=== PATIENT | female | born 1945 | race Caucasian/White ===

== ENCOUNTER 2023-08-03 15:33 | Observation (INO) | payer MEDICARE, SELFPAY ==
[2023-08-03] VITALS (21 sets, daily range): BP systolic 175–249; BP diastolic 85–159; PULSE 73–120; RESP 14–26; TEMP 36.5–37.1; O2SAT 89–99; BMI 30.8
--- NOTE | 2023-08-03 15:41 | XR_ITS ---
The [address] [address] Patient Name: RIVER ELIZONDO MRN: [id number] date: 1945 Sex: F Assigned Patient Location: ED.MAIN Current Patient Location: ER Accession/Order Number: [id number] Exam Date: 08/03/2023 15:55 Report Date: 08/03/2023 16:07 At the request of: JULIANA HUDDLESTON Procedure: XR chest 1V XR chest 1V: bee sting/ allegric reaction: This study is limited due to portable technique and AP view. There is no appropriate prior study for comparison. No pneumothorax is noted. The cardiomediastinal silhouette is unremarkable. There is no definite opacity or pleural effusion. No suspicious bone lesion is noted. Lower cervical spine prior intervention is noted. XR/XR chest 1V Impression: No acute cardiopulmonary disease is noted. Electronically authenticated by: HALIMA LONG Date: 08/03/2023 16:07
--- NOTE | 2023-08-03 15:41 | ECG_ITS ---
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
--- NOTE | 2023-08-03 15:43 | ED_ITS ---
HPI - Allergic Reaction General Chief complaint: Allergic Reaction Stated complaint: BEE STING Time Seen by Provider: 08/03/23 15:34 Source: patient Mode of arrival: walk-in History of Present Illness HPI narrative: patient is a 78-year-old female presents to the Emergency Room with concerns of tongue swelling and bee stings. Patient states she was working in her garden planting hill approximately three hours ago when she was stung five times by bees. She has no prior history of ALLERGIC reaction and decided to go take a nap, shortly after waking up the patient noticed significant swelling of her tongue. She is on lisinopril for high blood pressure and admits to having whitecoat syndrome. Patient denies difficulty swallowing but notes that her tongue is swollen and denies shortness of breath. She has multiple large hives on the left humerus, right lower abdomen and left foot. Patient denies any chest pain or shortness of breath. She denies any abdominal pain. She took a full dose 25 mg Benadryl at home after being stung complaint: Reports allergic reaction and hives Onset (ago): hour(s) (3) Symptoms: Reports itching and tongue swelling Treatment prior to arrival: Reports benadryl Related Data Allergies Allergy/AdvReac Type Severity Reaction Status Date / Time No Known Drug Allergies Allergy Verified 08/03/23 15:41 Review of Systems ROS Constitutional Denies: fever or chills Eyes Denies: change in vision or blurry vision Ears, nose, mouth, and throat Denies: throat pain, neck pain, throat swelling or difficulty swallowing Cardiovascular Denies: chest pain or palpitations Respiratory Denies: shortness of breath or cough Gastrointestinal Denies: abdominal pain or nausea Genitourinary Denies: painful urination or urinary frequency Musculoskeletal Denies: back pain or neck pain Neurological Denies: headache, numbness in extremities or weakness in extremities Psychiatric Reports: anxiety Endocrine Denies: excessive urination Allergic/Immunologic Reports: hives and tongue swelling PFSH PFSH Social History Smoking status: Former smoker Exam Narrative Exam Narrative: Nurses notes and vital signs reviewed and patient is not hypoxic. General: The patient appears well but anxious, speech is hindered by glottic s welling. Patient able to speak in full sentences Skin: Warm, dry, no pallor noted.notable hives to the right anterior abdomen, left proximal humerus and left foot. No visible retained stinger, patient believes she got stung five times. Head: Normocephalic, atraumatic Neck: Supple, trachea mid-line, no tenderness, no lymphadenopathy Eye: Pupils are equal, round and reactive to light, EOMI Ears, Nose, Mouth, and Throat: TM are clear, normal light reflex, oral mucosa is moist, no posterior oropharynx erythema or hypertrophy, uvula is mid-line without swelling but the tongue is notably swollen. Cardiovascular: Regular Rate and Rhythm Respiratory: Patient is in no distress, no accessory muscle use, lungs are clear to auscultation, no wheezing, rales or rhonchi. Chest Wall: no tenderness Back: non-tender, no CVA tenderness Musculoskeletal: normal ROM, no tenderness, no swelling GI: Normal bowel sounds, no tenderness to palpation, no masses appreciated. No rebound, guarding, or rigidity noted.soreness only to bee stings noted on right anterior lower abdomen with large hive Neurological: A&O x4 Psychiatric: Cooperative MDM - Allergic Reaction MDM Narrative Medical decision making narrative: patient denies any history of heart attack or coronary artery disease, admits to hypertension on lisinopril. no prior history of angioedema, patient had five bee stings three hours ago, took a nap and woke up with notable tongue swelling and hives. Patient denies difficulty breathing but speech is slightly impaired with her tongue swelling. Given consistent history of likely ALLERGIC reaction- anaphylactic with tongue swelling patient given epinephrine 0.3 mg IM, followed by IV Solu-Medrol one twenty-five, Pepcid 20 mg, Benadryl 25 mg IV. Patient will be observed. history of hypertension and blood pressure was elevated on arrival, will repeat after initial medication series, given her understandable anxiety. Ice packs applied to the areas of bee stings patient reexamined at 4:20 PM. Reports feeling much better, tongue swelling is improving. Denies chest pain or shortness of breath, her blood pressure is also trending back down. Patient agreeaable with continued observation rechecked at 5:20pm. Patient ordered potassium for her hypokalemia. Her blood pressure is trending downward at 175/85. She has no complaints other than continued to swelling but not symptoms are much better than before. Since she is not back to baseline her a hundred percent, but not yet needing re-dosing with epinephrine we recommended admission for observation stay to monitor symptoms in case she needs remedicated. Patient's case was discussed with Dr. Wade by . Diab is agreeable for admission. Differential Diagnosis Differential diagnosis: Likely anaphylaxis and allergic reaction Lab Data Attestation: I reviewed the patient's lab results. Imaging Data Chest x-ray: Radiologist's impression: At the request of: JULIANA HUDDLESTON Procedure: XR chest 1V XR chest 1V: bee sting/ allegric reaction: This study is limited due to portable technique and AP view. There is no appropriate prior study for comparison. No pneumothorax is noted. The cardiomediastinal silhouette is unremarkable. There is no definite opacity or pleural effusion. No suspicious bone lesion is noted. Lower cervical spine prior intervention is noted. Impression: No acute cardiopulmonary disease is noted. Electronically authenticated by: HALIMA LONG Date: 08/03/2023 16:07 ECG Data Attestation: I personally reviewed and interpreted this ECG as follows: Interpretation: EKG interpretation: Emergency Department physician interpretation, sinus tachycardia 114, no ectopy, no ST segment elevation,right axis deviation. Discharge Plan Discharge Chief Complaint: Allergic Reaction Clinical Impression: Anaphylaxis, Allergic reaction, Hypertension, Acute hypokalemia Patient Disposition: Admitted as Observation Time of Disposition Decision: 17:22 Condition: Good Referrals: Tereso Haider DO [Primary Care Provider] - 1 week
[2023-08-03] MEDS: EPINEPHRINE HCL PF 1 MG/ML AMPULE 0.3 MG IM (15:45)
[2023-08-03] MEDS: 0.9 % SODIUM CHLORIDE 1,000 ML 999 ML IV (15:50)
[2023-08-03] MEDS: METHYLPREDNISOLONE SOD SUCC PF 125 MG/2 ML VIAL IVP (15:50)
[2023-08-03] MEDS: FAMOTIDINE/PF 20 MG/2 ML VIAL IV (15:53)
[2023-08-03] MEDS: DIPHENHYDRAMINE HCL 50 MG/ML (1ML) VIAL 25 MG IV (15:55)
[2023-08-03 16:15] LABS: Basophils Absolute Auto 0.1 10^3/uL (0.0-0.1); Basophils Percent Auto 0.5 % (0.2-2.0); Eosinophils Absolute Auto 0.2 10^3/uL (0.0-0.7); Eosinophils Percent Auto 1.3 % (0.9-7.0); Hematocrit 42.8 % (36.0-48.0); Hemoglobin 14.2 g/dL (12.0-16.0); Immature Granulocytes Abs Auto 0.05 10^3/uL (0.00-0.03); Immature Granulocytes Pct Auto 0.4 % (0.0-0.5); Lymphocytes Absolute Auto 4.2 10^3/uL (1.2-3.8); Lymphocytes Percent Auto 36.3 % (20.5-60.0); Mean Corpuscular HGB Conc 33.2 g/dL (29.9-35.2); Mean Corpuscular Hemoglobin 31.1 pg (26.7-34.0); Mean Corpuscular Volume 93.9 fL (81.0-99.0); Mean Platelet Volume 10.3 fL (9.5-13.5); Monocytes Absolute Auto 1.1 10^3/uL (0.3-0.8); Monocytes Percent Auto 9.1 % (1.7-12.0); Neutrophils Absolute Auto 6.1 10^3/uL (1.4-6.5); Neutrophils Percent Auto 52.4 % (43.0-75.0); Platelet Count 263 10^3/uL (150-450); Red Blood Count 4.56 10^6/uL (4.20-5.40); Red Cell Distribution Width 12.6 % (11.0-15.0); White Blood Count 11.6 10^3/uL (4.0-11.0)
[2023-08-03 16:26] LABS: Anion Gap 11.3; BUN Creatinine Ratio 18.9; Calcium 9.5 mg/dL (8.5-10.1); Carbon Dioxide 26.8 mmol/L (21.0-32.0); Chloride 104 mmol/L (98-107); Estimated GFR (African America 52 (>=60); Estimated GFR (Non-African Ame 43 (>=60); Glucose 175 mg/dL (74-106); Potassium 3.1 mmol/L (3.5-5.1); Sodium 139 mmol/L (136-145)
[2023-08-03] MEDS: POTASSIUM BICARBONATE/CIT 25 MEQ TABLET EFF 50 MEQ PO (17:28)
--- NOTE | 2023-08-03 19:57 | PC.NURSE ---
some redness and edema at the sight of the bee stings. Patient states some stiffness in her left foot from the edema
[2023-08-03] MEDS: ACETAMINOPHEN 500 MG TABLET 1000 MG PO (20:56)
[2023-08-03] MEDS: LACTATED RINGER'S SOLUTION 1,000 ML 50 ML IV (21:11)
[2023-08-03] MEDS: ZOLPIDEM TARTRATE 5 MG TABLET 2.5 MG PO (21:11)
[2023-08-03] MEDS: HYDRALAZINE HCL 20 MG/ML VIAL 10 MG IVP (21:12)
[2023-08-03] MEDS: METHYLPREDNISOLONE SOD SUCC PF 125 MG/2 ML VIAL 60 MG IVP (21:12)
[2023-08-03] MEDS: DIPHENHYDRAMINE HCL 25 MG CAPSULE PO (23:21)
--- NOTE | 2023-08-03 23:47 | PC.NURSE ---
patient was given solu-medrol per physician order. Patient now states she feels jittery and stated, I can feel my heart beating and feel wired. patient's HR was 85, but she stated her normal resting heart rate is mid 50s. physician made aware.
[2023-08-04] MEDS: METHYLPREDNISOLONE SOD SUCC PF 125 MG/2 ML VIAL 60 MG IVP ×2 (04:17→11:25)
[2023-08-04 04:18] VITALS: BP 126/68; PULSE 72; RESP 18; TEMP 36.4; O2SAT 95
[2023-08-04 04:22] VITALS: O2SAT 92
[2023-08-04] MEDS: ACETAMINOPHEN 500 MG TABLET 1000 MG PO (04:58)
--- NOTE | 2023-08-04 08:17 | P.HP_ITS ---
H&P: HPI History of Present Illness Chief complaint: BEE STING, ANAPHYLAXIS Narrative: Patient with no history of bee sting allergy had several bee stings yesterday and then not long after that started noticing a thickness to her tongue. With concern for allergies she presented to the emergency room. She was not hypoxic and no wheezing but had the tongue swelling. With the acute onset and severity of her current symptoms she was admitted overnight for observation. Patient also does take an GARDENIA inhibitor. Does not appear to be angioedema that would be consistent with GARDENIA inhibitors with those were held. Review of Systems ROS Status of ROS 10 or more systems reviewed and unremarkable except as noted in history and below [facility] Medical History Surgical History (Reviewed 08/04/23 @ :22 by Haroon Wade MD) Family History Mother Family history of cancer Family history of diabetes mellitus Family history of hypertension Father Family history of myocardial infarction Social History Within the past year, how often did you have a drink containing alcohol: monthly or less Within the past year, how often did you have six or more drinks on one occasion: never Smoking status: Former smoker Non-prescribed substance use: denies use Previous occupational history: sorrowful mother karon Known occupational exposures/hazards: No Highest level of school completed/degree received: Associate degree: academic program Are you now , , , , never or living with a partner: Little interest or pleasure in doing things: not at all Feeling down, depressed, or hopeless: not at all Feel stressed/tense/nervous/anxious/difficulty sleeping: not at all Do you think of yourself as: straight/heterosexual Gender Identity: female Meds Home Medications and Allergies Home Medications Medication Instructions Recorded Confirmed Type acetaminophen 500 mg tablet (Pain 1,000 mg PO Q6H PRN pain 08/03/23 08/03/23 History Relief (acetaminophen)) calcium 08/03/23 History glucosamine sulf dipot cap PO DAILY 08/03/23 History chlr,msm,chond 550 mg-C 30 mg-emrcy 1 mg capsule (Glucosamine Chondroitin) multivitamin (Daily Multi-Vitamin 1 tab PO DAILY 08/03/23 08/03/23 History tablet) zolpidem 5 mg tablet 2.5 mg PO DAILY PRN insomnia 08/03/23 08/03/23 History lisinopril 20 1 tab PO DAILY 08/04/23 08/04/23 History mg-hydrochlorothiazide 12.5 mg tablet (Zestoretic) metoprolol tartrate 25 mg tablet 25 mg PO BID #60 tabs 08/04/23 Rx Allergies Allergy/AdvReac Type Severity Reaction Status Date / Time No Known Drug Allergies Allergy Verified 08/03/23 15:41 Exam Constitutional Vital Signs, click to edit/add: Last Vital Signs Temp 97.5 F L 08/04/23 04:18 Pulse 72 08/04/23 04:18 Resp 18 08/04/23 04:18 BP 126/68 08/04/23 04:18 Pulse Ox 92 L 08/04/23 04:22 O2 Del Method Room Air 08/04/23 04:22 Documenting provider has reviewed patient's vital signs: yes Common normals: no apparent distress HENMT Common normals: normocephalic, head/scalp atraumatic, moist oral mucous membranes and oropharynx normal Chest Common normals: inspection of chest normal Respiratory Common normals: normal respiratory effort, no retractions and clear to auscultation bilaterally Cardio Common normals: regular rate, regular rhythm and no murmurs Results Labs Labs: Short CBC 08/03/23 Range/Units 15:41 WBC 11.6 H (4.0-11.0) 10^3/uL Hgb 14.2 (12.0-16.0) g/dL Hct 42.8 (36.0-48.0) % Plt Count 263 (150-450) 10^3/uL BMP 08/03/23 15:41 Sodium 139 Potassium 3.1 L Chloride 104 Carbon Dioxide 26.8 BUN 23.0 H Creatinine 1.22 H Glucose 175 H Calcium 9.5 Assessment and Plan Assessment and Plan (1) Anaphylaxis: (2) Allergic reaction: (3) Hypertension: Plan Patient with acute reaction to possible bee stings-did well overnight. Feels no tongue swelling this morning. She is eating and ambulating well should be discharged to home after breakfast. Medications see list. Follow-up with PCP within the next week. Hypertension-although unlikely to be angioedema from GARDENIA inhibitor we will change patient to metoprolol. Hypokalemia-can monitor as an outpatient. Likely related to the hydrochlorothiazide which was been discontinued
[2023-08-04] MEDS: METOPROLOL TARTRATE 25 MG TABLET PO (08:27)
[2023-08-04] MEDS: MULTIVITAMIN TABLET 1 TAB PO (08:27)
[2023-08-04] MEDS: POTASSIUM CHLORIDE 40 MEQ in 0.9 % SODIUM CHLORIDE 250 ML 67.5 MEQ IV (08:27)
--- NOTE | 2023-08-04 08:49 | CM.NOTE ---
Rounds made with yolanda Ch to discharge to home today and pt will need to f/u with primary care physician.
--- NOTE | 2023-08-04 08:57 | CM.NOTE ---
Medicare Outpatient Observation Notice discussed with pt, pt verbalizes understanding and signs paper. Original given to pt and copy placed on pt's chart.
--- NOTE | 2023-08-04 10:20 | SWNOTE1 ---
SW met with pt to discuss dc needs. Pt does live at home by herself. Pt's son in room during assessment. Pt is independent at home and has no concerns about discharge. Pt will be getting epipen due to the reaction from bee stings. SW to follow as needed.
[2023-08-04 10:43] VITALS: O2SAT 94
--- NOTE | 2023-08-05 15:42 | CM.DCFOLLOWU ---
1st attempt follow up call made by Sergio Espinoza on 08/05/23, no answer at this time
--- NOTE | 2023-08-08 14:45 | CM.DCFOLLOWU ---
2nd attempt discharge follow up call made by Sergio Espinoza on 08/08/23, no answer at this time.
--- NOTE | 2023-08-11 12:19 | CM.DCFOLLOWU ---
Person spoke with:patient How are you feeling? was feeling anxious, feeling better now How is your pain? no pain Did you understand your discharge instructions? yes Do you have any questions about your discharge instructions? no Were you given any prescriptions at discharge? yes Were you able to get your prescriptions filled? yes Do you understand how to take your medications as ordered? yes Do you have any questions about your follow up appointment and do you plan to keep your follow up appointment? she called Dr. Elise office and spoke with nurse, was stung again over weekend. Was feeling anxious, but better now. She is going to see Dr. Haider tomorrow Is there anything else that you would like to discuss? no Questions/Comments/Concerns/Other:
== END 2023-08-04 13:04 | disposition home or self-care (01) ==
LOC: ER 17:22 → MS 18:05
PROVIDERS: Personal Emergency Response Attendant; Admitting Provider Family Medicine; Emergency Provider Emergency Medicine; PCP Internal Medicine; Visit Provider Family Medicine
DX: T63.441A Toxic effect of venom of bees, accidental (unintentional), initial encounter (principal); T78.2XXA Anaphylactic shock, unspecified, initial encounter; I10 Essential (primary) hypertension; E87.6 Hypokalemia; Z87.891 Personal history of nicotine dependence
CPT/HCPCS: 36415; 71045; 80048; 85025; 93005; 94667; 94761; 96365; 96366; 96372; 96375; 96376; 99285; G0378; J2930; J3480

== ENCOUNTER 2023-08-07 07:47 | Emergency (ER) | payer MEDICARE, SELFPAY ==
[2023-08-07] VITALS (11 sets, daily range): BP systolic 180–242; BP diastolic 70–120; PULSE 75–110; RESP 16–20; O2SAT 95–98
--- NOTE | 2023-08-07 08:12 | ECG_ITS ---
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
--- NOTE | 2023-08-07 08:13 | XR_ITS ---
The [address] [address] Patient Name: RIVER ELIZONDO MRN: [id number] date: 1945 Sex: F Assigned Patient Location: ER Current Patient Location: ER Accession/Order Number: [id number] Exam Date: 08/07/2023 08:45 Report Date: 08/07/2023 09:13 At the request of: MARANDA BRASWELL Procedure: XR chest 1V EXAM: XR chest 1V HISTORY: . hypertension . COMPARISON: 08/03/2023 TECHNIQUE: Single view of the chest FINDINGS: Heart and vascularity are unremarkable. There is hyperexpansion of lungs. Lungs are free of focal infiltrates. There is a small area of linear atelectasis in the lingula. Early atherosclerotic changes of the thoracic aorta are noted. XR/XR chest 1V IMPRESSION: 1 hyperexpansion of lungs. 2. Linear area of atelectasis in the lingula. Remainder of lung cool are unremarkable. Electronically authenticated by: ASAF SANDS Date: 08/07/2023 09:13
--- NOTE | 2023-08-07 08:13 | ED.GENADUL1 ---
HPI - General Adult General Chief complaint: Recheck/Abnormal Lab/Rx Stated complaint: HIGH BLOOD PRESSURE Time Seen by Provider: 08/07/23 08:04 Source: patient Mode of arrival: walk-in History of Present Illness HPI narrative: [age] female presents for elevated blood pressure. She had been admitted to this hospital for multiple bee stings and during that hospitalization she was switched from lisinopril to metoprolol because of a potassium issue. She's been taking the metoprolol but her blood pressure has gone up and her legs feel swollen and her face feels puffy. She is not short of breath but doesn't have chest pain or shortness of breath or palpitations. She had gone home from the hospital four days ago. She took a dose of lisinopril today as well. Related Data Home Medications Medication Instructions Recorded Confirmed acetaminophen 500 mg tablet (Pain 1,000 mg PO Q6H PRN pain 08/03/23 08/03/23 Relief (acetaminophen)) calcium 08/03/23 glucosamine sulf dipot cap PO DAILY 08/03/23 chlr,msm,chond 550 mg-C 30 mg-mercy 1 mg capsule (Glucosamine Chondroitin) multivitamin (Daily Multi-Vitamin 1 tab PO DAILY 08/03/23 08/03/23 tablet) zolpidem 5 mg tablet 2.5 mg PO DAILY PRN insomnia 08/03/23 08/03/23 lisinopril 20 1 tab PO DAILY 08/04/23 08/04/23 mg-hydrochlorothiazide 12.5 mg tablet (Zestoretic) Previous Rx's Medication Instructions Recorded epinephrine 0.3 mg/0.3 mL 0.3 mg (0.3 mL) IM Q10M PRN 08/04/23 injection, auto-injector (EpiPen allergic reacion #2 ea 2-Joel) metoprolol tartrate 25 mg tablet 25 mg PO BID #60 tabs 08/04/23 Allergies Allergy/AdvReac Type Severity Reaction Status Date / Time No Known Drug Allergies Allergy Verified 08/03/23 15:41 Review of Systems ROS Narrative A ten point review of systems is negative except as noted above. PFSH PFSH Medical History Surgical History Family History Mother Family history of cancer Family history of diabetes mellitus Family history of hypertension Father Family history of myocardial infarction Social History Within the past year, how often did you have a drink containing alcohol: monthly or less Within the past year, how often did you have six or more drinks on one occasion: never Smoking status: Current some day smoker Non-prescribed substance use: denies use Previous occupational history: sorrowful mother karon Known occupational exposures/hazards: No Highest level of school completed/degree received: Associate degree: academic program Are you now , , , , never or living with a partner: Little interest or pleasure in doing things: not at all Feeling down, depressed, or hopeless: not at all Feel stressed/tense/nervous/anxious/difficulty sleeping: not at all Do you think of yourself as: straight/heterosexual Gender Identity: female Exam Narrative Exam Narrative: Nurses note and vital signs reviewed and patient is not hypoxic. General: The patient appears well and in no apparent distress. Patient is resting comfortably on cart. Skin: Warm, dry, no pallor noted. There is no rash noted. Head: Normocephalic, atraumatic Eye: Normal conjunctiva, no drainage Ears, Nose, Mouth, and Throat: oral mucosa is moist. Nares patent. Cardiovascular: Regular Rate and Rhythm Respiratory: Patient is in no distress, no accessory muscle use, lungs are clear to auscultation, no wheezing, rales or rhonchi Back: non-tender GI: soft and nontender Musculoskeletal: bilateral ankle edema present Neurological: A&O, normal speech Psychiatric: Cooperative Constitutional Vital Signs, click to edit/add: Last Vital Signs Pulse 85 08/07/23 12:24 Resp 16 08/07/23 12:24 BP 180/70 H 08/07/23 12:24 Pulse Ox 97 08/07/23 12:24 O2 Del Method Room Air 08/07/23 11:43 Course Vital Signs Vital signs: Vital Signs Pulse Rate 110 H 08/07/23 08:02 Respiratory Rate 20 08/07/23 08:02 Blood Pressure 242/120 H 08/07/23 08:02 Pulse Oximetry 95 08/07/23 08:02 Oxygen Delivery Method Room Air 08/07/23 08:02 Pulse Rate 85 08/07/23 12:24 Respiratory Rate 16 08/07/23 12:24 Blood Pressure 180/70 H 08/07/23 12:24 Pulse Oximetry 97 08/07/23 12:24 Oxygen Delivery Method Room Air 08/07/23 11:43 Medical Decision Making MDM Narrative Medical decision making narrative: blood pressure was elevated and she was given IV hydralazine. blood pressure has been trending down and will increase her metoprolol from 25 mg twice a day up to 50 mg twice today. She has a doctor's appointment in eight days that she'll keep. Treatment diagnosis and follow-up were discussed with the patient and her . Differential Diagnosis Differential Diagnosis: steroid-induced hypertension, kidney injury Lab Data Lab results reviewed: Yes I reviewed the patient's lab results Labs: Lab Results 08/07/23 Range/Units 08:40 WBC 8.1 (4.0-11.0) 10^3/uL RBC 4.38 (4.20-5.40) 10^6/uL Hgb 13.7 (12.0-16.0) g/dL Hct 42.2 (36.0-48.0) % MCV 96.3 (81.0-99.0) fL MCH 31.3 (26.7-34.0) pg MCHC 32.5 (29.9-35.2) g/dL RDW 12.8 (11.0-15.0) % Plt Count 218 (150-450) 10^3/uL MPV 10.7 (9.5-13.5) fL Neut % (Auto) 57.3 (43.0-75.0) % Lymph % (Auto) 30.0 (20.5-60.0) % Travis % (Auto) 9.5 (1.7-12.0) % Eos % (Auto) 1.7 (0.9-7.0) % Baso % (Auto) 0.5 (0.2-2.0) % Neut # (Auto) 4.7 (1.4-6.5) 10^3/uL Lymph # (Auto) 2.4 (1.2-3.8) 10^3/uL Travis # (Auto) 0.8 (0.3-0.8) 10^3/uL Eos # (Auto) 0.1 (0.0-0.7) 10^3/uL Baso # (Auto) 0.0 (0.0-0.1) 10^3/uL Abs Immat Gran (auto) 0.08 H (0.00-0.03) 10^3/uL Imm/Tot Granulo (auto) 1.0 H (0.0-0.5) % Sodium 141 (136-145) mmol/L Potassium 3.4 L (3.5-5.1) mmol/L Chloride 104 (98-107) mmol/L Carbon Dioxide 29.7 (21.0-32.0) mmol/L Anion Gap 10.7 BUN 20.0 H (7.0-18.0) mg/dL Creatinine 1.14 H (0.55-1.02) mg/dL Est GFR ( Amer) 56 L (>=60) Est GFR (Non-Af Amer) 46 L (>=60) BUN/Creatinine Ratio 17.5 Glucose 131 H (74-106) mg/dL Calcium 9.6 (8.5-10.1) mg/dL Critical Care Time Critical Care Time Critical Care Time: Yes Total Critical Care Time: 35 Attestation: Due to the high probability of sudden and clinically significant deterioration in the patient's condition he/she required the highest level of my preparedness to intervene urgently I provided critical care time including documentation time, medication orders and management, reevaluation, vital sign assessment, ordering and reviewing of lab tests, ordering and reviewing of x-ray studies, and admission orders. Aggregate critical care time is () minutes including only time during which I was engaged in work directly related to his/her care and did not include time spent treating other patients simultaneously. Discharge Plan Discharge Chief Complaint: Recheck/Abnormal Lab/Rx Clinical Impression: Hypertension Patient Disposition: Home, Self-Care Time of Disposition Decision: 12:47 Condition: Good Mode of Transportation: Private Vehicle Prescriptions / Home Meds: No Action zolpidem 5 mg tablet 2.5 mg PO DAILY PRN (Reason: insomnia) multivitamin [Daily Multi-Vitamin] Tablet 1 tab PO DAILY acetaminophen [Pain Relief (acetaminophen)] 500 mg tablet 1,000 mg PO Q6H PRN (Reason: pain) Glucosamine Chondroitin 550-30-1 mg capsule PO DAILY calcium metoprolol tartrate 25 mg Tablet 25 mg PO BID Qty: 60 11RF lisinopril-hydrochlorothiazide [Zestoretic] 20-12.5 mg tablet 1 tab PO DAILY epinephrine [EpiPen 2-Joel] 0.3 mg/0.3 mL auto-injector 0.3 mg IM Q10M PRN (Reason: allergic reacion) Qty: 2 11RF Rx Instructions: for 2 doses Instructions: Hypertension (ED) Additional Instructions: increase the metoprolol to 50 mg twice a day beginning tonight. See your doctor at your scheduled appointment. Stand Alone Forms: Portal Instructions Referrals: Tereso Haider DO [Primary Care Provider] - 1 week
[2023-08-07 08:54] LABS: Anion Gap 10.7; BUN Creatinine Ratio 17.5; Calcium 9.6 mg/dL (8.5-10.1); Carbon Dioxide 29.7 mmol/L (21.0-32.0); Chloride 104 mmol/L (98-107); Estimated GFR (African America 56 (>=60); Estimated GFR (Non-African Ame 46 (>=60); Glucose 131 mg/dL (74-106); Potassium 3.4 mmol/L (3.5-5.1); Sodium 141 mmol/L (136-145)
[2023-08-07] MEDS: HYDRALAZINE HCL 20 MG/ML VIAL 10 MG IVP ×2 (09:11→11:23)
[2023-08-07 09:12] LABS: Basophils Percent Auto 0.5 % (0.2-2.0); Eosinophils Absolute Auto 0.1 10^3/uL (0.0-0.7); Eosinophils Percent Auto 1.7 % (0.9-7.0); Hematocrit 42.2 % (36.0-48.0); Hemoglobin 13.7 g/dL (12.0-16.0); Immature Granulocytes Abs Auto 0.08 10^3/uL (0.00-0.03); Lymphocytes Absolute Auto 2.4 10^3/uL (1.2-3.8); Mean Corpuscular HGB Conc 32.5 g/dL (29.9-35.2); Mean Corpuscular Hemoglobin 31.3 pg (26.7-34.0); Mean Corpuscular Volume 96.3 fL (81.0-99.0); Mean Platelet Volume 10.7 fL (9.5-13.5); Monocytes Absolute Auto 0.8 10^3/uL (0.3-0.8); Monocytes Percent Auto 9.5 % (1.7-12.0); Neutrophils Absolute Auto 4.7 10^3/uL (1.4-6.5); Neutrophils Percent Auto 57.3 % (43.0-75.0); Platelet Count 218 10^3/uL (150-450); Red Blood Count 4.38 10^6/uL (4.20-5.40); Red Cell Distribution Width 12.8 % (11.0-15.0); White Blood Count 8.1 10^3/uL (4.0-11.0)
[2023-08-07] MEDS: LORAZEPAM 2 MG/ML 1 ML VIAL 0.5 MG IV (11:58)
== END 2023-08-07 13:25 | disposition home or self-care (01) ==
PROVIDERS: Emergency Provider Emergency Medicine; PCP Internal Medicine
DX: I10 Essential (primary) hypertension (principal); Z79.899 Other long term (current) drug therapy; F17.210 Nicotine dependence, cigarettes, uncomplicated
CPT/HCPCS: 36415; 71045; 80048; 85025; 93005; 96374; 96375; 96376; 99285

== ENCOUNTER 2023-08-08 19:37 | Emergency (ER) | payer MEDICARE, SELFPAY ==
[2023-08-08] VITALS (10 sets, daily range): BP systolic 170–202; BP diastolic 88–103; PULSE 54–95; RESP 20; TEMP 36.6; O2SAT 94–95; BMI 30.3
--- NOTE | 2023-08-08 20:01 | ED_ITS ---
HPI - Allergic Reaction General Chief complaint: Allergic Reaction Stated complaint: BEE BITE Time Seen by Provider: 08/08/23 19:51 Source: patient Mode of arrival: walk-in Limitations: no limitations History of Present Illness HPI narrative: patient sustained multiple bee sting 08/03/23 and required observation admission. She now returns because she was stung by a bee left middle finger about 1/2 hour ago. Has localized swelling of her finger. No shortness of breath, throat tightness , nausea or light headedness. States during her last hospitalization her HTN medications were changed. Her BP is elevated now. She denies OCONNELL but feels she is anxious. MD complaint: Reports allergic reaction Related Data Home Medications Medication Instructions Recorded Confirmed acetaminophen 500 mg tablet (Pain 1,000 mg PO Q6H PRN pain 08/03/23 08/03/23 Relief (acetaminophen)) calcium 08/03/23 glucosamine sulf dipot cap PO DAILY 08/03/23 chlr,msm,chond 550 mg-C 30 mg-mercy 1 mg capsule (Glucosamine Chondroitin) multivitamin (Daily Multi-Vitamin 1 tab PO DAILY 08/03/23 08/03/23 tablet) zolpidem 5 mg tablet 2.5 mg PO DAILY PRN insomnia 08/03/23 08/03/23 lisinopril 20 1 tab PO DAILY 08/04/23 08/04/23 mg-hydrochlorothiazide 12.5 mg tablet (Zestoretic) Previous Rx's Medication Instructions Recorded epinephrine 0.3 mg/0.3 mL 0.3 mg (0.3 mL) IM Q10M PRN 08/04/23 injection, auto-injector (EpiPen allergic reacion #2 ea 2-Joel) metoprolol tartrate 25 mg tablet 25 mg PO BID #60 tabs 08/04/23 Allergies Allergy/AdvReac Type Severity Reaction Status Date / Time No Known Drug Allergies Allergy Verified 08/03/23 15:41 Review of Systems ROS Status of ROS 10 or more systems reviewed and unremarkable except as noted in history and below [facility] Medical History Surgical History Family History Mother Family history of cancer Family history of diabetes mellitus Family history of hypertension Father Family history of myocardial infarction Social History Within the past year, how often did you have a drink containing alcohol: monthly or less Within the past year, how often did you have six or more drinks on one occasion: never Smoking status: Never smoker Non-prescribed substance use: denies use Previous occupational history: sorrowful mother karon Known occupational exposures/hazards: No Highest level of school completed/degree received: Associate degree: academic program Are you now , , , , never or living with a partner: Little interest or pleasure in doing things: not at all Feeling down, depressed, or hopeless: not at all Feel stressed/tense/nervous/anxious/difficulty sleeping: not at all Do you think of yourself as: straight/heterosexual Gender Identity: female Exam Constitutional Vital Signs, click to edit/add: Last Vital Signs Temp 97.9 F 08/08/23 19:42 Pulse 95 H 08/08/23 19:42 Resp 20 08/08/23 19:42 BP 189/103 H 08/08/23 19:42 Pulse Ox 95 08/08/23 19:42 O2 Del Method Room Air 08/08/23 19:42 Common normals: no apparent distress, average body habitus, oriented x3, no limitations, healthy appearing, alert and well nourished Eye Common normals: EOMs intact bilaterally and conjunctivae normal Respiratory Common normals: normal respiratory effort, no retractions, no use of accessory muscles and clear to auscultation bilaterally Cardio Common normals: regular rate, regular rhythm, S1 normal heart sound and S2 normal heart sound GI Common normals: Normal to inspection, nondistended, normoactive bowel sounds present, soft to palpation and non-tender Extremity Other: mod swelling left middle finger. Erythematous. remaining hand exam neg Neuro Common normals: oriented x3, CN's II-XII intact bilaterally, moves all extrem ities, no focal motor deficits and no sensory deficits noted Psych Appearance: grossly normal Course Vital Signs Vital signs: Vital Signs Temperature 97.9 F 08/08/23 19:42 Pulse Rate 95 H 08/08/23 19:42 Respiratory Rate 20 08/08/23 19:42 Blood Pressure 189/103 H 08/08/23 19:42 Pulse Oximetry 95 08/08/23 19:42 Oxygen Delivery Method Room Air 08/08/23 19:42 Temperature 97.9 F 08/08/23 19:42 Pulse Rate 95 H 08/08/23 19:42 Respiratory Rate 20 08/08/23 19:42 Blood Pressure 189/103 H 08/08/23 19:42 Pulse Oximetry 95 08/08/23 19:42 Oxygen Delivery Method Room Air 08/08/23 19:42 MDM - Allergic Reaction MDM Narrative Medical decision making narrative: patient presents with HTN and local reaction to bee sting. Stung on the left middle finger 1/2 hour before coming in. Exam with mod erythema and swelling of the LMF. No systemic symptoms. BP elevated at 202/100 . Patient without Oconnell or dizziness. Treated with solumedrol, benadryl and pepcid and catapres. BP decreased to 170/80. Swelling and erythema of the finger have improved nicely. Patient states her BP medication was switched during her last hospitalization. She feels the lisinopril she was on worked better for her BP. Advised to restart her lisinopril and to follow up with her doctor next week for recheck Discharge Plan Discharge Chief Complaint: Allergic Reaction Clinical Impression: Allergy to bee sting, Hypertension Patient Disposition: Home, Self-Care Prescriptions / Home Meds: No Action zolpidem 5 mg tablet 2.5 mg PO DAILY PRN (Reason: insomnia) multivitamin [Daily Multi-Vitamin] Tablet 1 tab PO DAILY acetaminophen [Pain Relief (acetaminophen)] 500 mg tablet 1,000 mg PO Q6H PRN (Reason: pain) Glucosamine Chondroitin 550-30-1 mg capsule PO DAILY calcium metoprolol tartrate 25 mg Tablet 25 mg PO BID Qty: 60 11RF lisinopril-hydrochlorothiazide [Zestoretic] 20-12.5 mg tablet 1 tab PO DAILY epinephrine [EpiPen 2-Joel] 0.3 mg/0.3 mL auto-injector 0.3 mg IM Q10M PRN (Reason: allergic reacion) Qty: 2 11RF Rx Instructions: for 2 doses Instructions: Allergies (ED), Hypertension (ED) Stand Alone Forms: Portal Instructions Referrals: Tereso Haider DO [Primary Care Provider] - 1 week
[2023-08-08 20:25] LABS: Basophils Percent Auto 0.5 % (0.2-2.0); Eosinophils Absolute Auto 0.2 10^3/uL (0.0-0.7); Eosinophils Percent Auto 1.9 % (0.9-7.0); Hematocrit 38.6 % (36.0-48.0); Hemoglobin 12.9 g/dL (12.0-16.0); Immature Granulocytes Abs Auto 0.03 10^3/uL (0.00-0.03); Immature Granulocytes Pct Auto 0.4 % (0.0-0.5); Lymphocytes Absolute Auto 3.5 10^3/uL (1.2-3.8); Mean Corpuscular HGB Conc 33.4 g/dL (29.9-35.2); Mean Corpuscular Hemoglobin 31.4 pg (26.7-34.0); Mean Corpuscular Volume 93.9 fL (81.0-99.0); Mean Platelet Volume 10.6 fL (9.5-13.5); Monocytes Absolute Auto 0.9 10^3/uL (0.3-0.8); Monocytes Percent Auto 11.2 % (1.7-12.0); Neutrophils Absolute Auto 3.3 10^3/uL (1.4-6.5); Platelet Count 242 10^3/uL (150-450); Red Blood Count 4.11 10^6/uL (4.20-5.40); Red Cell Distribution Width 12.9 % (11.0-15.0); White Blood Count 7.9 10^3/uL (4.0-11.0)
[2023-08-08] MEDS: METHYLPREDNISOLONE SOD SUCC PF 125 MG/2 ML VIAL IVP (20:26)
[2023-08-08] MEDS: DIPHENHYDRAMINE HCL 50 MG/ML (1ML) VIAL IV (20:26)
[2023-08-08] MEDS: FAMOTIDINE/PF 20 MG/2 ML VIAL 40 MG IV (20:26)
[2023-08-08] MEDS: CLONIDINE HCL 0.1 MG TABLET PO ×2 (20:29→22:11)
[2023-08-08 21:32] LABS: Anion Gap 8.4; BUN Creatinine Ratio 22.1; Calcium 8.8 mg/dL (8.5-10.1); Carbon Dioxide 26.4 mmol/L (21.0-32.0); Chloride 105 mmol/L (98-107); Estimated GFR (African America 48 (>=60); Estimated GFR (Non-African Ame 39 (>=60); Glucose 123 mg/dL (74-106); Potassium 3.8 mmol/L (3.5-5.1); Sodium 136 mmol/L (136-145)
== END 2023-08-08 23:00 | disposition home or self-care (01) ==
PROVIDERS: Emergency Provider Internal Medicine; PCP Internal Medicine
DX: T63.441A Toxic effect of venom of bees, accidental (unintentional), initial encounter (principal); I10 Essential (primary) hypertension; Z79.899 Other long term (current) drug therapy
CPT/HCPCS: 36415; 80048; 85025; 96374; 96375; 99284; J2930

== ENCOUNTER 2023-08-25 12:20 | Outpatient (OUT) | payer MEDICARE, SELFPAY ==
--- NOTE | 2023-08-25 | ECG_ITS ---
[facility] Test Date: 2023-08-25 Pat Name: RIVER ELIZONDO Department: Room: - Gender: Female Toe Laster: : 1945 Requested By: SONJA ELIZONDO Order Number: [id number] Reading MD: SONJA ELIZONDO Measurements Intervals [place] Rate: 92 P: 72 NC: 157 QRS: 84 QRSD: 90 T: 55 QT: 325 QTc: 403 Interpretive Statements SINUS RHYTHM Compared to ECG 08/07/2023 08:11:53 No significant changes Electronically Signed On 08-26-2023 7:04:51 EDT by SONJA ELIZONDO
== END 2023-08-25 12:21 | disposition home or self-care (01) ==
LOC: CARD 12:20
PROVIDERS: PCP Internal Medicine; Visit Provider Internal Medicine
DX: R00.0 Tachycardia, unspecified (principal)
CPT/HCPCS: 93005

== ENCOUNTER 2023-08-25 15:27 | Outpatient (OUT) | payer MEDICARE, SELFPAY ==
[2023-08-25 16:58] LABS: Anion Gap 14.1; Calcium 8.6 mg/dL (8.5-10.1); Carbon Dioxide 25.7 mmol/L (21.0-32.0); Chloride 102 mmol/L (98-107); Estimated GFR (African America 45 (>=60); Estimated GFR (Non-African Ame 37 (>=60); Glucose 90 mg/dL (74-106); Potassium 3.8 mmol/L (3.5-5.1); Sodium 138 mmol/L (136-145); Thyroid Stimulating Hormone 0.437 uIU/mL (0.358-3.740)
== END 2023-08-25 15:28 | disposition home or self-care (01) ==
LOC: LAB 15:28
PROVIDERS: PCP Internal Medicine; Visit Provider Internal Medicine
DX: I10 Essential (primary) hypertension (principal); R00.0 Tachycardia, unspecified
CPT/HCPCS: 36415; 80048; 84443

== ENCOUNTER 2023-11-11 11:27 | Outpatient (OUT) | payer MEDICARE, SELFPAY ==
--- NOTE | 2023-11-11 11:31 | MM_ITS ---
Patient Name: RIEVR ELIZONDO MR#: [id number] : 1945 Exam Date: 11/11/2023 Ordering Doctor: DR Tereso Elizondo D.O. RADIOLOGY REPORT PROCEDURE: MM TOMOSYNTHESIS SCREENING BI COMPARISON: MG MAMM SCREEN 3D ANASTASIYA CAD, 12/04/2021. MG MAMM SCREEN ANASTASIYA W CAD, 09/14/2020. INDICATIONS: Screening Calculator Name NCI Breast Cancer Risk Assessment Tool 5 Year Breast Cancer Risk 3.70% Lifetime Breast Cancer Risk 7.40% Personal Breast Cancer No Personal Ovarian Cancer No Treatments None Family Cancers Mother with breast cancer at age 82; Cousin-paternal with breast cancer at age 80. LOCATION: [facility] BREAST COMPOSITION: Heterogeneously dense,which may obscure small masses. FINDINGS: DIAGNOSTIC CATEGORY 1--NEGATIVE. NO CHANGE FROM COMPARISON ASSESSMENT. Scattered benign-appearing calcifications are present. Scattered benign-appearing lymph nodes are present. RIGHT BREAST: No significant suspicious finding. LEFT BREAST: No significant suspicious finding. RECOMMENDATIONS: ROUTINE MAMMOGRAM AND CLINICAL EVALUATION IN 12 MONTHS. PLEASE NOTE: A NORMAL MAMMOGRAM DOES NOT EXCLUDE THE POSSIBILITY OF BREAST CANCER. A CLINICALLY SUSPICIOUS PALPABLE LUMP SHOULD BE BIOPSIED. Dictated by: Oscar Martines MD on 11/12/2023 at 09:37 Approved by: Oscar Martines MD on 11/12/2023 at 09:39
== END 2023-11-11 11:28 | disposition home or self-care (01) ==
LOC: MAMMO 11:27
PROVIDERS: PCP Internal Medicine; Visit Provider Internal Medicine
DX: Z12.31 Encounter for screening mammogram for malignant neoplasm of breast (principal); Z80.3 Family history of malignant neoplasm of breast
CPT/HCPCS: 77063; 77067

== ENCOUNTER 2024-06-17 11:59 | Outpatient (OUT) | payer MEDICARE, SELFPAY ==
--- OUTSIDE RECORDS SUMMARY | 2024-06-17 12:03 | XMS_ITS | CCD ---
Author Organization [facility] Care Team Providers Care Chairman & Co Founder Name Role Phone VÍCTOR, ANGELO H. Unavailable Unavailable TERESO HAIDER Unavailable Unavailable VÍCTOR, ANGELO HAngeles Unavailable Unavailable VÍCTOR, ANGELO H. Unavailable Unavailable TERESO HAIDER Unavailable Unavailable VÍCTOR, ANGELO HAngeles Unavailable Unavailable Tereso Haider Unavailable VITALY, DR CASILLAS Attending Unavailable VITALY, DR CASILLAS Consulting Unavailable BALL, DR CASILLAS Primary Care Unavailable VITALY, DR CASILLAS Admitting Unavailable REQUEST, DR MORIN LISTED Consulting Unavaila courtney REQUEST, DR MORIN LISTED Admitting Unavailtripp HAIDER, DR CASILLAS Primary Care Unavailable REQUEST, NONE LISTED Attending UnavailTereso Sevilla MD Primary Care Provider PHIL RYAN Referring Unavailable PHIL RYAN Attending Unavailable ELLE HENDERSON Attending Unavailable BROWN, PHIL A Referring Unavailable ELLE HENDERSON Attending Unavailable BROWN, PHIL A Referring Unavailable BLACKSZEENAT, ELLE Attending Unavailable BROWN, PHIL A Referring Unavailable BLACKSTON, ELLE Attending Unavailable BROWN, PHIL A Referring Unavailable BLACKSZEENAT, ELLE Attending Unavailable BROWN, PHIL A Referring Unavailable BROWN, PHIL A Attending Unavailable BROWN, PHIL A Attending Unavailable BLACKSTON, ELLE Attending Unavailable BROWN, PHIL A Referring Unavailable BLACKSTON, ELLE Attending Unavailable BROWN, PHIL A Referring Unavailable BLACKSTON, ELLE Attending Unavailable BROWN, PHIL A Referring Unavailable BLACKSTON, ELLE Attending Unavailable BROWN, PHIL A Referring Unavailable Allergies Allergy Classification Reported Allergen(s) Allergy Type Date of Onset Reaction(s) Facility (3 sources) patient allergy list reviewed by nurse or physicia Propensity to adverse reactions 5 Comment:Done Press Other Medications Current Medications Medication Drug Class(es) Dates Sig (Normalized) Sig (Original) Calcium (15 sources) Phosphate Binder, Calcium Calcium 1 tab Oral Active Calcium 1 tab Or al Not-Taking calcium carbonate 1250 mg oral tablet (1 source) Start: 12-24-2017 Calcium Carbonate (Calcium 500) 500 mg calcium (1,250 mg) Tablet Active TABLET December 24, 2017 1:00am celecoxib 200 mg oral capsule (1 source) Nonsteroidal Anti-inflammatory Drug Start: 05-10-2024 take 1 capsule by mouth once daily Celecoxib (Celebrex) 200 mg capsule Active 200 MG PO Daily May 10, 2024 12:00am Centrum Silver 50+Women - (15 sources) Centrum Silver 50+Women - Orally Active Centrum Silver 5 0+Women - Orally Not-Taking chondroitin sulfates 400 mg / glucosamine sulfate 500 mg oral tablet (1 source) take 1 tablet by mouth in the morning, then take 1 tablet by mouth in the evening, then take 1 tablet by mouth at bedtime glucosamine-chondroitin 500-400 MG tablet Take 1 tablet by mouth in the morning and 1 tablet in the evening and 1 tablet before bedtime. 0 Active DELETED Baclofen 2%, Cyclobenzaprine HCl 2%, Diclofenac Na 3%, Gabapentin 6%, Lidocaine HCl 2% (13 sources) Start: 8 DELETED Baclofen 2%, Cyclobenzaprine HCl 2%, Diclofenac Na 3%, Gabapentin 6%, Lidocaine HCl 2% as directed Topical 1-2 grams to affected areas every 6-8 hours for 30 days Nov, Active Start: 12-09-2017 Start: 12-09-2017 DELETED Baclof en 2%, Cyclobenzaprine HCl 2%, Diclofenac Na 3%, Gabapentin 6%, Lidocaine HCl 2% as directed Topical 1-2 grams to affected areas every 6-8 hours for 30 days Nov, Not-Taking escitalopram 10 mg oral tablet (3 sources) Serotonin Reuptake Inhibitor Start: 09-16-2023 take 1 tablet by mouth every twenty-four hours Escitalopram Oxalate 10 MG 1 tablet Orally Once a day for 30 days Aug, Active Fish Oil + D3 0101-8902 MG-UNIT (15 sources) take 1 capsule by mouth three times daily Fish Oil + D3 0694-8395 MG-UNIT 1 capsule Orally Three times a day Active take 1 capsule by mouth three ti mes daily Fish Oil + D3 2210-7315 MG-UNIT 1 capsule Orally Three times a day Not-Taking fluticasone (6 sources) Corticosteroid Start: 02-19-2023 Start: 02-19-2023 take 1-2 spray(s) na cordelia route once daily at bedtime FLONASE 50 mcg 1-2 sprays each NOSTRIL nasal QHS for 30 days Jan, Active gadoteridol (Prohance) injection 5,586 mg (1 source) Start: 06-24-2023 gadoteridol (Prohance) injection 5,586 mg hydroCHLOROthiazide 12.5 mg / lisinopril 20 mg oral tablet (17 sources) Thiazide Diuretic, Angiotensin Converting Enzyme Inhibitor Start: 01-26-2024 take 1 tablet by mouth once daily Lisinopril-Orange chlorothiazide Active 1 TAB PO Daily January 26, 2024 3:32pm Start: 12-24-2017 End: 01-26-2024 Lisinopril-Hydrochlorothiazi de Discontinued TABLET December 24, 2017 1:00am January 26, 2024 3:33pm take 1 tablet by samantha th once daily Lisinopril-hydroCHLOROthiazide 20-12.5 M G TAKE 1 TABLET BY MOUTH DAILY Active take 1 tablet by samantha th once daily Lisinopril-hydroCHLOROthiazide 20-12.5 M G TAKE 1 TABLET BY MOUTH DAILY Active lisinopril 10 mg oral tablet (1 source) Angiotensin Converting Enzyme Inhibitor take 1 tablet by mouth once daily lisinopril 10 MG tablet Take 10 mg by mouth 1 (one) time each day at the same time. 0 Active Rzwglikk-Nfs-Vhux-Fa -Vit K-Lut (Centrum Silver Women) 8 mg iron-400 mcg-300 mcg Tablet (1 source) Start: 8 Blkvghex-Tze-Aemk-F a-Vit K-Lut (Centrum Silver Women) 8 mg iron-400 mcg-300 mcg Tablet Active TABLET December 24, 2017 1:00am Tylenol Extra Strength 500 MG (14 sources) take 2 tablets by mouth every six hours as needed Tylenol Extra Strength 500 MG 2 tablets as needed Orally every 6 hrs Active take 2 tablets by mo uth every six hours as needed Tylenol Extra Strength 500 MG 2 tablets as needed Orally every 6 hrs Not-Taking zolpidem tartrate 5 mg oral tablet (8 sources) gamma-Aminobutyric Acid-ergic Agonist Start: 01-14-2024 End: 01-14-2024 take 5 mg by mouth once daily at bedtime Zolpidem Active 5 MG PO Daily at bedtime 90 90 January 14, 2024 2:22pm Start: 01-05-2024 Zolpidem Tartr ate 5 MG TAKE ONE-HALF TABLET BY MOUTH ONCE DAILY AT BEDTIME Orally Once a day for 90 days Dec, Active Start: 05-13-2023 Start: 05-13-2023 take 0.5 tablet by m outh once daily at bedtime Zolpidem Tartrate 5 MG TAKE ONE-HALF TABLET BY MOUTH AT BEDTIME Orally Once a day for 90 days Apr, Active Start: 01-28-2023 take 0.5 tablet by m outh at bedtime Zolpidem Tartrate 5 MG TAKE ONE-HALF TABLET BY MOUTH AT BEDTIME for 90 Jan, Active take 2.5 mg by mouth every twenty-four hours as needed zolpidem (Ambien) 5 MG tablet Take 2.5 mg by mouth Daily as needed. 0 Active Completed/Discontinued Medications Medication Drug Class(es) Dates Sig (Normalized) Sig (Original) acetaminophen 325 mg oral tablet (19 sources) Start: 01-23-2024 End: 05-10-2024 take 2 tablets by mouth every six hours as needed Acetaminophen (Tylenol) 325 mg tablet Discontinued 325 MG PO Every 6 hours January 23, 2024 1:00am May 10, 2024 11:43am 2 tablets as needed Orally every 6 hrs Start: 12-24-2017 End: 01-23-2024 take 1 tablet by mouth every six hours Acetaminophen (Tylenol Extra Strength) 500 mg tablet Active 500 MG PO Every 6 hours January 23, 2024 1:21pm take 2 tablets by mo uth every six hours Tylenol Extra Strength 500 MG 2 tablets as needed Orally every 6 hrs Active take 2 tablets by mo uth every six hours Tylenol 325 MG 2 tablets as needed Orally every 6 hrs Active take 2 tablets by mo uth every six hours ALPRAZolam 0.5 mg oral tablet (1 source) Benzodiazepine Start: 12-24-2017 End: 01-23-2024 Alprazolam Discontinued TABLET December 24, 2017 1:00am January 23, 2024 1:22pm Lidocaine (1 source) Antiarrhythmic, Amide Local Anesthetic Start: 11-13-2023 Lidocaine Oct, 2 mg LORazepam 0.5 mg oral tablet (13 sources) Benzodiazepine Start: 01-23-2024 End: 01-26-2024 take 0.5-1 tablets by mouth twice daily as needed Lorazepam Discontinued 0.5 MG PO Twice daily January 23, 2024 1:00am January 26, 2024 3:32pm 1/2 to 1 tablet Orally bid as needed Start: 11-13-2023 take 0.5-1 tablets b y mouth twice daily as needed LORazepam 0.5 MG 1/2 to 1 tablet Orally bid as needed for 30 days Oct, Active Start: 09-23-2023 LORazepam 0.5 MG 1/2 to 1 Orally daily as needed Aug, Active Start: 09-23-2023 LORazepam 0.5 MG 1/2 to 1 Orally Twice a day as needed for 30 days Aug, Active Start: 08-12-2023 LORazepam 0.5 MG 1/2 to 1 Orally every 6 hours as needed for anxiety Jul, Active Start: 06-06-2023 LORazepam 0.5 MG 1 tab Orally prior to MRI for 1 days May, Active 24 hr metoprolol succinate 25 mg extended release oral tablet (9 sources) beta-Adrenergic Mitra Start: 01-23-2024 End: 01-26-2024 take 25 mg by mouth once daily Metoprolol Succinate Discontinued 25 MG PO Daily January 23, 2024 1:00am January 26, 2024 3:32pm Start: 08-25-2023 take 1 tablet by samantha th every twenty-four hours Metoprolol Succinate ER 25 MG 1 tablet Orally Once a day for 30 days Aug, Active Start: 08-09-2023 take 1 tablet by samantha th every twelve hours Metoprolol Tartrate 50 MG 1 tablet with food Orally Twice a day for 30 days Jul, Active Metoprolol Succi sid ER 25 MG 1/2 Orally bid Active triamcinolone acetonide 40 mg/ml injectable suspension (1 source) Corticosteroid Start: 11-13-2023 Kenalog-40 Oct, 1 mg Problems Active Problems Problem Classification Problem Date Documented Da te Episodic/Chronic Acute bronchitis (3 sources) Acute bronchitis; Translations: [Acute bronchitis, unspecified] Episodic Anxiety disorders (20 sources) Claustrophobia; Translations: [Claustrophobia] Chronic Cardiac dysrhythmias (4 sources) Tachycardia, unspecified Episodic Conditions associated with dizziness or vertigo (18 sources) Benign paroxysmal positional vertigo; Translations: [Benign paroxysmal vertigo, bilateral] Episodic Diabetes mellitus with complications (20 sources) Type 2 diabetes mellitus; Translations: [Type 2 diabetes mellitus with hyperglycemia] Onset: 02-19-2023 Chronic Esophageal disorders (19 sources) Gastro-esophageal reflux disease with esophagitis; Translations: [Gastroesophageal reflux disease with esophagitis without hemorrhage] 01-23-2024 Chronic Esophageal disorders (4 sources) Esophageal disorders; Translations: [Gastro-esophageal reflux disease with esophagitis, without bleeding] Essential hypertension (20 sources) Essential hypertension; Translations: [Essential (primary) hypertension] Onset: 03-03-2015 Chronic Immunizations and screening for infectious disease (3 sources) Vaccination given; Translations: [Encounter for immunization] Episodic Menopausal disorders (3 sources) Primary ovarian failure; Translations: [Other primary ovarian failure] Onset: 04-22-2019 Chronic Miscellaneous mental health disorders (20 sources) Primary insomnia; Translations: [Primary insomnia] Chronic Nonmalignant breast conditions (3 sources) Fibrocystic disease of breast; Translations: [Diffuse cystic mastopathy of unspecified breast] Chronic Nutritional deficiencies (3 sources) Vitamin D deficiency; Translations: [Vitamin D deficiency, unspecified] Onset: 07-15-2014 Chronic Osteoarthritis (8 sources) Osteoarthritis of knee; Translations: [Bilateral primary osteoarthritis of knee] Onset: 07-15-2014 01-23-2024 Chronic Other bone disease and musculoskeletal deformities (15 sources) Other specified disorders of bone density and structure, other site; Translations: [Osteopenia of lumbar spine] Episodic Other bone disease and musculoskeletal deformities (3 sources) Bone density finding; Translations: [Other specified disorders of bone density and structure, unspecified site] Episodic Other bone disease and musculoskeletal deformities (3 sources) Disorder of bone; Translations: [Other specified disorders of bone density and structure, other site] Episodic Other bone disease and musculoskeletal deformities (1 source) Osteopenia; Translations: [Other specified disorders of bone density and structure, other site] 01-23-2024 Episodic Other congenital anomalies (3 sources) Congenital spondylolysis of lumbosacral region; Translations: [Congenital spondylolysis, lumbosacral region] Onset: 09-30-2017 Chronic Other connective tissue disease (18 sources) Enthesopathy of hip region; Translations: [Iliotibial band syndrome, right leg] Episodic Other connective tissue disease (3 sources) Fibromyalgia; Translations: [Fibromyalgia] Episodic Other connective tissue disease (1 source) Supraspinatus tear; Translations: [Unspecified rotator cuff tear or rupture of right shoulder, not specified as traumatic] Episodic Other connective tissue disease (1 source) Iliotibial band friction syndrome of right knee; Translations: [Iliotibial band syndrome, right leg] 01-23-2024 Episodic Other gastrointestinal disorders (19 sources) Irritable bowel syndrome; Translations: [Mixed irritable bowel syndrome] 01-23-2024 Chronic Other injuries and conditions due to external causes (3 sources) History of fall; Translations: [History of falling] Episodic Other nervous system disorders (1 source) Disease of spinal cord, unspecified; Translations: [Disease of spinal cord, unspecified] Onset: 01-12-2018 Chronic Other nervous system disorders (17 sources) Chronic pain; Translations: [Other chronic pain] 01-23-2024 Chronic Other nervous system disorders (18 sources) Sciatic nerve lesion; Translations: [Lesion of sciatic nerve, right lower limb] Chronic Other nervous system disorders (7 sources) Carpal tunnel syndrome; Translations: [Carpal tunnel syndrome, unspecified upper limb] Onset: 03-22-2016 01-26-2024 Chronic Other nervous system disorders (3 sources) Lesion of ulnar nerve; Translations: [Lesion of ulnar nerve, unspecified upper limb] Onset: 11-27-2016 Chronic Other nervous system disorders (3 sources) Hereditary peripheral neuropathy; Translations: [Unspecified hereditary and idiopathic peripheral neuropathy] Onset: 03-03-2015 Chronic Other non-traumatic joint disorders (3 sources) Lower limb joint arthritis; Translations: [Osteoarthrosis, unspecified whether generalized or localized, lower leg] Onset: 03-22-2016 Chronic Other non-traumatic joint disorders (15 sources) Arthralgia of the pelvic region and thigh; Translations: [Pain in right hip] Episodic Other non-traumatic joint disorders (3 sources) Pain in right hip joint; Translations: [Pain in right hip] Episodic Other non-traumatic joint disorders (1 source) Hip pain; Translations: [Pain in right hip] 01-23-2024 Episodic Other nutritional; endocrine; and metabolic disorders (3 sources) Obesity; Translations: [Obesity, unspecified] Chronic Other nutritional; endocrine; and metabolic disorders (3 sources) Simple obesity ; Translations: [Other obesity due to excess calories] Onset: 11-24-1959 Chronic Other nutritional; endocrine; and metabolic disorders (3 sources) Obese class II; Translations: [Body mass index 35.0-35.9, adult] Onset: 11-24-1959 Chronic Other nutritional; endocrine; and metabolic disorders (5 sources) Body mass index 30+ - obesity; Translations: [Body mass index 30.0-30.9, adult] Onset: 11-24-1959 Chronic Other nutritional; endocrine; and metabolic disorders (2 sources) Obesity caused by energy imbalance; Translations: [Other obesity due to excess calories] Chronic Other nutritional; endocrine; and metabolic disorders (1 source) Other obesity due to excess calories Chronic Other nutritional; endocrine; and metabolic disorders (1 source) Body mass index (BMI) 30.0-30.9, adult Chronic Other screening for suspected conditions (not mental disorders or infectious disease) (1 source) Encounter for screening mammogram for malignant neoplasm of breast Episodic Other upper respiratory disease (3 sources) Allergic rhinitis due to pollen; Translations: [Allergic rhinitis due to pollen] Chronic Other upper respiratory disease (3 sources) Allergic rhinitis; Translations: [Allergic rhinitis, unspecified] Chronic Other upper respiratory infections (6 sources) Acute maxillary sinusitis; Translations: [Acute maxillary sinusitis, unspecified] Episodic Otitis media and related conditions (1 source) Other specified disorders of Eustachian tube, bilateral Episodic Poisoning by nonmedicinal substances (1 source) Toxic effect of venom of bees, accidental (unintentional), subsequent encounter Episodic Residual codes; unclassified (3 sources) Insomnia; Translations: [Insomnia, unspecified] Episodic Residual codes; unclassified (3 sources) Postmenopausal state; Translations: [Asymptomatic menopausal state] Episodic Spondylosis; intervertebral disc disorders; other back problems (20 sources) Other spondylosis with myelopathy, cervical region; Translations: [Other cervical disc displacement, unspecified cervical region] Onset: 12-19-2017 Chronic Spondylosis; intervertebral disc disorders; other back problems (18 sources) Spinal stenosis of lumbar region; Translations: [Spinal stenosis, lumbosacral region] Onset: 09-16-2017 Episodic Substance-related disorders (16 sources) Tobacco user; Translations: [Nicotine dependence, cigarettes, in remission] Chronic Varicose veins of lower extremity (16 sources) Pain co-occurrent and due to varicose veins of bilateral legs; Translations: [Varicose veins of bilateral lower extremities with pain] 01-23-2024 Episodic Past or Other Problems Problem Classification Problem Date Documented Da te Episodic/Chronic Bacterial infection; unspecified site (3 sources) Bacterial infectious disease; Translations: [Bacterial infection, unspecified, in conditions classified elsewhere and of unspecified site] Onset: 12-02-2018 Episodic Deficiency and other anemia (3 sources) Anemia; Translations: [Anemia, unspecified] Onset: 10-24-2014 Episodic Malaise and fatigue (3 sources) Malaise and fatigue; Translations: [Other malaise and fatigue] Onset: 10-10-2014 Episodic Other connective tissue disease (3 sources) Radial styloid tenosynovitis; Translations: [Radial styloid tenosynovitis] Onset: 04-22-2019 Episodic Other nervous system disorders (3 sources) Paresthesia; Translations: [Paresthesia of skin] Onset: 10-24-2014 Episodic Other upper respiratory disease (3 sources) Seasonal allergic rhinitis; Translations: [Other seasonal allergic rhinitis] Resolved: 12-04-2021 Chronic Screening and history of mental health and substance abuse codes (3 sources) History of tobacco use; Translations: [Personal history of tobacco use, presenting hazards to health] Onset: 09-16-2017 Episodic Results Test Name Value Interpretation Reference Range Facility GLYCOHEMOGLOBIN A1Con 2022 ADA RECOMMENDATION SEE BELOW Normal [facility] Comment on above: Result Comment: ADA RECOMMENDED LIMIT 4.0 - 6.0 ADA THERAPEUTIC TARGET < 7.0 ACTION SUGGESTED > 7.0 Performed By: #### A 1C #### [facility] [address] [address] [address] Hiwot Hernández Glucose [Mass/Vol] 117 mg/dL Normal [facility] Comment on above: Performed By: #### A 1C #### [facility] [address] [place], [place] [address] Dr. Hiwot Hernández HbA1c (Bld) [Mass fraction] 5.7 % Normal 4.5-6.2 [facility] Comment on above: Performed By: #### A 1C #### [facility] [address] [place] [address] Dr. Hiwot Hernández CBC AUTO DIFFon 12-02-2022 BASO # 0.1 103/ul Normal 0.0-0.1 [facility] Comment on above: Performed By: #### D ATCBC #### [facility] [address] [place] [address] Dr. Hiwot Hernández Basophils/100 WBC (Bld) 0.6 % Normal 0.2-2.0 [facility] Comment on above: Performed By: #### D ATCBC #### [facility] [address] [place] [address] Dr. Hiwot Hernández EO # 0.2 103/ul Normal 0.0-0.7 [facility] Comment on above: Performed By: #### D ATCBC #### [facility] [address] [place] [address] Dr. Hiwot Hernández Eosinophils/100 WBC (Bld) 2.1 % Normal 0.9-7.0 [facility] Comment on above: Performed By: #### D ATCBC #### [facility] [address] [place] [address] Dr. Hiwot Hernández Erythrocyte distribution width (RBC) [Ratio] 12.1 % Normal 11.0-15.0 [facility] Comment on above: Performed By: #### D ATCBC #### [facility] [address] [place] [address] Dr. Hiwot Hernández Hematocrit (Bld) [Volume fraction] 38.9 % Normal 36.0-48.0 [facility] Comment on above: Performed By: #### D ATCBC #### [facility] [address] [place] [address] Dr. Hiwot Hernández Hemoglobin (Bld) [Mass/Vol] 14.0 g/dL Normal 12.0-16.0 [facility] Comment on above: Performed By: #### D ATCBC #### [facility] [address] [place] [address] Dr. Hiwot Hernández IG # 0.03 10e3/ul Normal 0.00-0.03 [facility] Comment on above: Performed By: #### D ATCBC #### [facility] [address] [place] [address] Dr. Hiwot Hernández IG % 0.3 % Normal 0.0-0.5 [facility] Comment on above: Performed By: #### D ATCBC #### [facility] [address] [place] [address] Dr. Hiwot Hernández LYMPH # 2.6 103/ul Normal 1.2-3.8 [facility] Comment on above: Performed By: #### D ATCBC #### [facility] [address] [place] [address] Dr. Hiwot Hernández Lymphocytes/100 WBC (Bld) 27.3 % Normal 20.5-60.0 [facility] Comment on above: Performed By: #### D ATCBC #### [facility] [address] [place] [address] Dr. Hiwot Hernández MCH (RBC) [Entitic mass] 30.6 pg Normal 26.7-34.0 [facility] Comment on above: Performed By: #### D ATCBC #### [facility] [address] [place] [address] Dr. Hiwot Hernández MCHC (RBC) [Mass/Vol] 36.0 g/dL Critically high 29.9-35.2 [facility] Comment on above: Performed By: #### D ATCBC #### [facility] [address] [place] [address] Dr. Hiwot Hernández MCV (RBC) [Entitic vol] 84.9 fL Normal 81.0-99.0 [facility] Comment on above: Performed By: #### D ATCBC #### [facility] [address] [place] [address] Dr. Hiwot Hernández MONO # 0.9 103/ul Critically high 0.3-0.8 [facility] Comment on above: Performed By: #### D ATCBC #### [facility] [address] [place] [address] Dr. Hiwot Hernández Monocytes/100 WBC (Bld) 9.5 % Normal 1.7-12.0 [facility] Comment on above: Performed By: #### D ATCBC #### [facility] [address] [place] [address] Dr. Hiwot Hernández NEUT # 5.7 103/ul Normal 1.4-6.5 [facility] Comment on above: Performed By: #### D ATCBC #### [facility] [address] [place] [address] Dr. Hiwot Hernández Neutrophils/100 WBC (Bld) 60.2 % Normal 43.0-75.0 [facility] Comment on above: Performed By: #### D ATCBC #### [facility] [address] [place] [address] Dr. Hiwot Hernández Platelet mean volume (Bld) [Entitic vol] 10.1 fL Normal 9.5-13.5 [facility] Comment on above: Performed By: #### D ATCBC #### [facility] [address] [place] [address] Dr. Hiwot Hernández PLT 247 103/ul Normal 150-450 [facility] Comment on above: Performed By: #### D ATCBC #### [facility] [address] [place] [address] Dr. Hiwot Hernández RBC 4.58 106/ul Normal 4.20-5.40 [facility] Comment on above: Performed By: #### D ATCBC #### [facility] [address] [place] [address] Dr. Hiwot Hernández WBC 9.4 103/ul Normal 4.0-11.0 [facility] Comment on above: Performed By: #### D ATCBC #### [facility] [address] [place] [address] Dr. Hiwot Hernández AIRAM- BMP WITH LIPIDon 2022 Anion gap [Moles/Vol] 13.9 mmol/L Normal [facility] Comment on above: Performed By: #### D ATBMP #### [facility] [address] [place] [address] Dr. Hiwot Hernández Calcium [Mass/Vol] 9.6 mg/dL Normal 8.5-10.1 [facility] Comment on above: Performed By: #### D ATBMP #### [facility] [address] [address] [address] Hiwot Hernández Chloride [Moles/Vol] 103 mmol/L Normal 98-107 [facility] Comment on above: Performed By: #### D ATBMP #### [facility] [address] [address] [address] Hiwot Hernández Cholesterol [Mass/Vol] 172 mg/dL Normal <=200 [facility] Comment on above: Performed By: #### D ATBMP #### [facility] [address] [address] [address] Hiwot Hernández Cholesterol in HDL [Mass/Vol] 63 mg/dL Critically high 40-60 [facility] Comment on above: Performed By: #### D ATBMP #### [facility] [address] [address] [address] Hiwot Hernández Cholesterol in LDL [Mass/Vol] 75.0 mg/dL Normal [facility] Comment on above: Performed By: #### D ATBMP #### [facility] [address] [address] [address] Hiwot Hernández CO2 [Moles/Vol] 28.8 mmol/L Normal 21.0-32.0 [facility] Comment on above: Performed By: #### D ATBMP #### [facility] [address] [address] [address] Hiwot Hernández Creatinine [Mass/Vol] 1.15 mg/dL Critically high 0.55-1.02 [facility] Comment on above: Performed By: #### D ATBMP #### [facility] [address] [address] [address] Hiwot Hernández EGFR-AF NIGERIEN 56 mL/min/1.73m2 Critically low >=60 [facility] Comment on above: Performed By: #### D ATBMP #### [facility] [address] [address] [address] Hiwot Hernández EGFR-NON AF NIGERIEN 46 mL/min/1.73m2 Critically low >=60 [facility] Comment on above: Performed By: #### D ATBMP #### [facility] [address] [address] [address] Hiwot Hernández Glucose [Mass/Vol] 129 mg/dL Critically high 74-106 [facility] Comment on above: Performed By: #### D ATBMP #### [facility] [address] [address] [address] Hiwot Hernández HDL NORMAL > or = 60 mg/dl - LO W CARDIOVASCULAR RISK <40 mg/dl - HIGH CARDIOVASCULAR RISK Normal [facility] Comment on above: Performed By: #### D ATBMP #### [facility] [address] [address] [address] Hiwot Hernández LDL CALC NORMAL SEE BELOW Normal [facility] Comment on above: Result Comment: <100 mg/dl OPTIMAL 100 - 129 mg/dl NEAR OR ABOVE OPTIMAL 130 - 159 mg/dl BORDERLINE HIGH 160 - 189 mg/dl HIGH >190 mg/dl VERY HIGH Performed By: #### D ATBMP #### [facility] [address] [address] [address] Hiwot Hernández Potassium [Moles/Vol] 3.7 mmol/L Normal 3.5-5.1 [facility] Comment on above: Performed By: #### D ATBMP #### [facility] [address] [address] [address] Hiwot Hernández Sodium [Moles/Vol] 142 mmol/L Normal 136-145 [facility] Comment on above: Performed By: #### D ATBMP #### [facility] [address] [address] [address] Hiwot Hernández Triglyceride [Mass/Vol] 170 mg/dL Critically high <=150 [facility] Comment on above: Performed By: #### D ATBMP #### [facility] [address] [address] [address] Hiwot Hernández Urea nitrogen [Mass/Vol] 28.0 mg/dL Critically high 7.0-18.0 [facility] Comment on above: Performed By: #### D ATBMP #### [facility] [address] [address] [address] Hiwot Hernández Urea nitrogen/Creatinine [Mass ratio] 24.3 mg/mg Normal [facility] Comment on above: Performed By: #### D ATBMP #### [facility] [address] [address] [address] Hiwot Hernández VLDL CALC 34.0 mg/dL Normal [facility] Comment on above: Performed By: #### D ATBMP #### [facility] [address] [address] [address] Hiwot Rodriguez 09-16-2020 ALT No additional P-5'-P [Catalytic activity/Vol] 23 Int._Unit/L Normal - [facility] Comment on above: Performed By: #### 2 [id number], 3794308, 18739388, 3445551, 9809501, 4509946 #### [facility] [address] [place] [address] Davion 09-16-2020 AST [Catalytic activity/Vol] 20 Int._Unit/L Normal [facility] Comment on above: Performed By: #### 2 497317, 6795532, 83173924, 8128797, 5789839, 6571221 #### [facility] [address] [place] [address] BMPon 09-16-2020 Anion gap [Moles/Vol] 13 mmol/L Normal - [facility] Comment on above: Performed By: #### 2 998782, 1292987, 51750956, 5359353, 8496057, 9458842 #### [facility] [address] [place] [address] Calcium [Mass/Vol] 9.4 mg/dL Normal 8.9-11.1 [facility] Comment on above: Performed By: #### 2 888819, 0820971, 65662312, 3035009, 9554539, 8908156 #### [facility] [address] [place] [address] Chloride [Moles/Vol] 103 mmol/L Normal 101-111 [facility] Comment on above: Performed By: #### 2 222569, 8646729, 57668017, 8558586, 1261059, 1646832 #### [facility] [address] [place] [address] CO2 [Moles/Vol] 28 mmol/L Normal 21-31 [place] Comment on above: Performed By: #### 2 871307, 1403557, 11556639, 2811870, 9872931, 2808194 #### [facility] [address] [place] [address] Creatinine [Mass/Vol] 1.1 mg/dL Normal 0.5-1.3 [facility] Comment on above: Performed By: #### 2 420419, 9792559, 02432140, 1409349, 4899001, 9752753 #### [facility] [address] [place] [address] Glucose [Mass/Vol] 123 mg/dL Normal 55-199 [facility] Comment on above: Result Comment: If t his glucose result represents a fasting glucose, interpretation should refer to the following reference range: 55-99 mg/dL Performed By: #### 2 428498, 5669906, 37413572, 0469816, 0525930, 5805102 #### [facility] [address] [place] [address] Potassium [Moles/Vol] 4.1 mmol/L Normal 3.5-5.3 [facility] Comment on above: Performed By: #### 2 075664, 9118301, 90280394, 9385178, 0010226, 7412823 #### [facility] [address] [place] [address] Sodium [Moles/Vol] 140 mmol/L Normal 135-145 [facility] Comment on above: Performed By: #### 2 725952, 9777941, 08388397, 4388388, 2893523, 2542766 #### [facility] [address] [place] [address] Urea nitrogen [Mass/Vol] 27 mg/dL High 5-21 [facility] Comment on above: Performed By: #### 2 136461, 8155024, 54474183, 0491281, 4647142, 4682294 #### [facility] [address] [place] [address] Urea nitrogen/Creatinine [Mass ratio] 24 No Units High 10- [facility] Comment on above: Performed By: #### 2 849689, 0801145, 24095664, 7234350, 9130744, 8302149 #### [facility] [address] [place] [address] CBC w/Indiceson 09-16-2020 Erythrocyte distribution width (RBC) [Ratio] 12.7 % Normal 10.9-14.2 [facility] Comment on above: Performed By: #### 2 830804, 9278423, 59948316, 5011883, 2280662, 7690380 #### [facility] [address] [place] [address] Hematocrit (Bld) [Volume fraction] 42.3 % Normal 34.0-46.0 [facility] Comment on above: Performed By: #### 2 664108, 2882011, 41890429, 2097132, 6501263, 5918726 #### [facility] [address] [place] [address] Hemoglobin (Bld) [Mass/Vol] 14.3 g/dL Normal 12.0-16.0 [facility] Comment on above: Performed By: #### 2 371665, 1011002, 77363609, 8358839, 6260659, 3357689 #### [facility] [address] [place] [address] MCH (RBC) [Entitic mass] 31.0 pg Normal 27.0-34.0 [facility] Comment on above: Performed By: #### 2 148013, 4342021, 76717977, 1778359, 3136503, 1822222 #### [facility] [address] [place] [address] MCHC (RBC) [Mass/Vol] 33.9 g/dL Normal 31.4-36.0 [facility] Comment on above: Performed By: #### 2 934100, 6591516, 73202651, 2289478, 9842424, 6865495 #### [facility] [address] [place] [address] MCV (RBC) [Entitic vol] 91.3 fL Normal 80.0-100.0 [facility] Comment on above: Performed By: #### 2 064817, 7913806, 78061915, 5156246, 7580572, 5269785 #### [facility] [address] [place] [address] Platelet mean volume (Bld) [Entitic vol] 9.4 fL Normal 6.4-10.8 [facility] Comment on above: Performed By: #### 2 249434, 1274286, 63368248, 1074856, 2926536, 2669883 #### [facility] [address] [place] [address] Platelets (Bld) [#/Vol] 236.0 E9/L Normal 150.0-500.0 [facility] Comment on above: Performed By: #### 2 192532, 1727616, 54941979, 7014391, 4895148, 7837147 #### [facility] [address] [place] [address] RBC (Bld) [#/Vol] 4.6 E12/L Normal 4.3-5.9 [facility] Comment on above: Performed By: #### 2 471409, 5067044, 59428479, 2479321, 7388158, 4175266 #### [facility] [address] [place] [address] WBC corrected for nucl RBC Auto (Bld) [#/Vol] 5.5 E9/L Normal 4.0-11.0 [facility] Comment on above: Performed By: #### 2 425953, 3023991, 31972473, 4268677, 0991067, 0695200 #### [facility] [address] [place] [address] Lipid Panelon 09-16-2020 Cholesterol [Mass/Vol] 223 mg/dL High 120-200 [facility] Comment on above: Performed By: #### 2 773080, 0397619, 29327273, 3813679, 0300442, 0816696 #### [facility] [address] [place] [address] Cholesterol in HDL [Mass/Vol] 58 mg/dL [facility] Comment on above: Result Comment: HDL > or equal to 60 mg/dL: Low cardiovascular risk HDL < 40 mg/dL : High cardiovascular risk Performed By: #### 2 222062, 7055306, 60426652, 4840250, 6544377, 6590495 #### [facility] [address] [place] [address] Cholesterol in LDL [Mass/Vol] 126 mg/dL Normal <=129 [facility] Comment on above: Performed By: #### 2 455739, 7874692, 17163951, 1518704, 9374596, 5085368 #### [facility] [address] [place] [address] Cholesterol in VLDL [Mass/Vol] 35 mg/dL Normal 7-40 [facility] Comment on above: Performed By: #### 2 525380, 7812163, 19599017, 5239887, 1323360, 1897095 #### [facility] [address] [place] [address] Triglyceride [Mass/Vol] 175 mg/dL High <=149 [facility] Comment on above: Performed By: #### 2 651622, 9725778, 19694042, 4475488, 7643017, 8831553 #### [facility] [address] [place] [address] eGFRon 09-16-2020 GFR/1.73 sq M predicted among blacks MDRD (S/P/Bld) [Vol rate/Area] 59 mL/min/1.73 m2 Normal >=59 [facility] Comment on above: Order Comment: Order added by Discern Expert. Result Comment: eGFR is race adjusted. AA=. Performed By: #### 2 539608, 3829616, 64968170, 4327528, 7185228, 0616594 #### [facility] [address] [place] [address] GFR/1.73 sq M predicted among non-blacks MDRD (S/P/Bld) [Vol rate/Area] 49 mL/min/1.73 m2 Low >=59 [facility] Comment on above: Order Comment: Order added by Discern Expert. Result Comment: Industrial Management Teacher joseph kidney disease could be indicated at eGFR's of less than 60 mL/min/1.73m2. Kidney failure is indicated at less than 15 mL/min/1.73m2. Performed By: #### 2 269831, 5525966, 84061219, 5384529, 5688037, 8387194 #### [facility] [address] [place] [address] FLUORO FOR SURGICAL PROCEDUR ESon 01-15-2018 FLUORO FOR SURGICAL PROCEDURES Fluoroscopy surgical procedure.HISTORY:Cervic al fusion.FINDINGS:43.8 seconds fluoroscopy time. 3 images.Procedure performed as imaging guidance for anterior lower cervical fusion.IMPRESSION: Fluoroscopy for surgical procedure as describedInterpreted by:JULIO Valladaresigned by:Tereso Lamar MD01/15/18inal result Normal [facility] Basic Metabolic Panelon 12-25 Anion gap 13 mmol/L Normal 7-13 [facility] Calcium 9.6 mg/dL Normal 8.6-10.2 [facility] Chloride 103 mmol/L Normal 98-107 [facility] CO2 27 mmol/L Normal 22-29 [facility] Creatinine 0.84 mg/dL Normal 0.50-0.90 [facility] eGFR (black) mL/min/{1.73_m2} Normal >60 [facility] Comment on above: Result Comment: >60 mL/min/1.73m2 EGFR, calc. for ages 18 and older using theMDRD formula (not corrected for weight), is valid for stablerenal function. eGFR (MDRD) mL/min/{1.73_m2} Normal >60 [facility] Comment on above: Result Comment: >60 mL/min/1.73m2 EGFR, calc. for ages 18 and older using theMDRD formula (not corrected for weight), is valid for stablerenal function. Glucose mass conc 100 mg/dL Normal 74-109 [facility] Potassium molar conc 4.4 mmol/L Normal 3.5-5.1 [facility] Sodium 143 mmol/L Normal 132-144 [facility] Urea nitrogen 23 mg/dL Normal 8-23 [facility] CBC With Platelet No Differe ntialon 01-12-2018 Erythrocyte distribution width Auto Ratio (RBC) 12.5 % Normal 11.5-14.5 [facility] Erythrocytes (RBC) 4.59 10*6/uL Normal 4.20-5.40 [facility] Hematocrit (HCT) 42.6 % Normal 37.0-47.0 [facility] Hemoglobin mass conc (Bld) 14.3 g/dL Normal 12.0-16.0 [facility] MCH 31.1 pg Normal 27.0-31.3 [facility] MCHC mass conc (RBC) 33.5 % Normal 33.0-37.0 [facility] MCV 92.7 fL Normal 82.0-100.0 [facility] Platelets 203 10*3/uL Normal 130-400 [facility] WBC (Leukocytes) 6.1 10*3/uL Normal 4.8-10.8 [facility] Culture, MRSA Screenon 01-12 Culture, MRSA Screen ORDERED BY: IRENE RENEE: Nares Nose COLLECTED: 01/12/18 13:53ANTIBIOTICS AT LAURA.: RECEIVED : 01/12/18 13:53Culture, MRSA Screen FINAL 01/13/18 13:51 No MRSA isolated Normal [facility] Culture, Urineon 01-12-2018 Culture, Urine ORDERED BY: IRENE RENEE: Urine Clean Catch COLLECTED: 01/12/18 14:17ANTIBIOTICS AT LAURA.: RECEIVED : 01/12/18 14:17Culture, Urine FINAL 01/13/18 10:16 >50,000 CFU/ml of mixed evin Multiple organisms isolated, no predominance. Culture indicates probable contamination. Please review colony count and clinical indications to determine if a repeat culture is necessary. No further workup to be done. Normal [facility] Partial Thromboplastin Timeo n 01-12-2018 aPTT 25.5 s Normal 21.6-35.4 [facility] Comment on above: Result Comment: Hepa rin Therapeutic Range: 38.8 - 54.6 seconds. Prothrombin Timeon 8 INR Coag RelTime (PPP) 1.0 {INR} Normal [facility] Comment on above: Result Comment: Edison mmended INR therapeutic ranges for oral anticoagulanttherapyProphylaxis/treatment of: INR Venous Thrombosis, Pulmonary Embolism 2.0-3Prevention of Systemic Embolism from: Atrial Fibrillation 2.0-3.0 Myocardial Infarction 2.0-3.0 Mechanical Prosthetics Heart Valves 2.5-3.5 Recurrent Systemic Embolism 2.5-3.5Guidelines for patients with coagulopathy, e.g. liver disease:Use the Protime resulted in seconds. Mild 12.9-17.0 sec Moderate 17.1-22.6 sec Severe G.T. 22.6 sec Prothrombin time (PT) Coag time (PPP) 10.9 s Normal 8.1-13.7 [facility] Type and Screen Capture 3 va rn cellon 01-12-2018 Bilirubin (total) PATIENT: VITALY Vicente LOC: ALEXANDRABILL# : [id number] : 1945 SEX: FORDERED BY: VÍCTOR STEPHENS ORDERED : 01/12/2018 13:11 COLLECTED: 01/12/2018 14:00ORDER : [id number] RECEIVED : 01/12/2018 14:00 TEST NAME RESULT UNITS RANGES ABN FL STABORH Capture A POS FAntibody 3 Cell Scrn Captu NEG F ------ Normal [facility] Urinalysis, reflex to cultur cassi 01-12-2018 Bilirubin Ql (U) Negative Normal Negative [facility] Urine Reflexed to Culture YES Normal [facility] Urine, clarity CLOUDY Abnormal Clear [facility] Urine, color Yellow Normal Straw/[place] [facility] Urine, glucose presence Negative Normal Negative [facility] Urine, hemoglobin presence Negative Normal Negative [facility] Urine, ketones presence Negative Normal Negative [facility] Urine, leukocyte esterase presence LARGE Abnormal Negative [facility] Urine, nitrite presence Negative Normal Negative [facility] Urine, pH 6.5 [pH] Normal 5.0-9.0 [facility] Urine, protein presence Negative Normal Negative [facility] Urine, specific gravity 1.020 Normal 1.005-1.03 [facility] Urine, urobilinogen 0.2 {Tia'U}/dL Normal < 2.0 [facility] Urine Microscopicon 01-12-20 18 Urine Amorphous 1+ Normal [facility] Urine, bacteria in sediment Many Normal [facility] Urine, crystals in sediment 1+ Triple Phos Normal [facility] Urine, epithelial cells presence in sediment 5-10 Normal [facility] Urine, erythrocytes 0-2 Normal 0-2 [facility] Urine, leukocytes 3-5 Normal 0-5 [facility] Vital Signs Date Time Vital Sign Value Performing Clinician Facility 05-10-2024 11:08-0400 Body height 162.56 cm [facility] 05-10-2024 11:08-0400 Body mass index (BMI) [Ratio] 30.4 kg/m2 [facility] 05-10-2024 11:08-0400 Body weight 80.34 kg [facility] 05-10-2024 11:08-0400 Diastolic blood pressure 84 mm[Hg] [facility] 05-10-2024 11:08-0400 Heart rate 69 /min [facility] 05-10-2024 11:08-0400 Respiratory rate 12 /min [facility] 05-10-2024 11:08-0400 Systolic blood pressure 135 mm[Hg] [facility] 10-28-2023 11:00-0500 Body height 162.56 cm Tereso Ball Other [facility] [employer] Other 10-28-2023 11:00-0500 Body mass index (BMI) [Ratio] 30.48 kg/m2 Tereso Ball Other [facility] [employer] Other 10-28-2023 11:00-0500 Body weight 80.56 kg Tereso Ball Other [facility] [employer] Other 10-28-2023 11:00-0500 Diastolic blood pressure 67 mm[Hg] Tereso Ball Other [facility] [employer] Other 10-28-2023 11:00-0500 Respiratory rate 12 /min Tereso Ball Other [facility] [employer] Other 10-28-2023 11:00-0500 Systolic blood pressure 127 mm[Hg] Tereso Ball Other [employer] [facility] [employer] Other 09-16-2023 14:15-0400 Body height 162.56 cm Tereso Ball Other [employer] Other 09-16-2023 14:15-0400 Body mass index (BMI) [Ratio] 30.07 kg/m2 Tereso Ball Other [facility] [employer] Other 09-16-2023 14:15-0400 Body weight 79.47 kg Tereso Ball Other [employer] Other 09-16-2023 14:15-0400 Diastolic blood pressure 81 mm[Hg] Tereso Ball Other [employer] Other 09-16-2023 14:15-0400 Respiratory rate 12 /min Tereso Ball Other [employer] Other 09-16-2023 14:15-0400 Systolic blood pressure 182 mm[Hg] Tereso Ball Other [employer] Other 08-25-2023 14:15-0400 Body height 162.56 cm Tereso Ball Other [employer] Other 08-25-2023 14:15-0400 Body mass index (BMI) [Ratio] 29.83 kg/m2 Tereso Ball Other [employer] Other 08-25-2023 14:15-0400 Body weight 78.84 kg Tereso Ball Other [employer] Other 08-25-2023 14:15-0400 Diastolic blood pressure 83 mm[Hg] Tereso Ball Other [employer] Other 08-25-2023 14:15-0400 Respiratory rate 12 /min Tereso Ball Other [employer] Other 08-25-2023 14:15-0400 Systolic blood pressure 153 mm[Hg] Tereso Ball Other [employer] Other 08-12-2023 09:30-0400 Body height 162.56 cm Tereso Ball Other [employer] Other 08-12-2023 09:30-0400 Body mass index (BMI) [Ratio] 29.83 kg/m2 Tereso Ball Other [employer] Other 08-12-2023 09:30-0400 Body weight 78.84 kg Tereso Ball Other [employer] Other 08-12-2023 09:30-0400 Diastolic blood pressure 99 mm[Hg] Tereso Ball Other [employer] Other 08-12-2023 09:30-0400 Respiratory rate 12 /min Tereso Ball Other [employer] Other 08-12-2023 09:30-0400 Systolic blood pressure 174 mm[Hg] Tereso Ball Other [employer] Other 02-19-2023 11:30-0400 Body height 162.56 cm Tereso Ball Other [employer] Other 02-19-2023 11:30-0400 Body mass index (BMI) [Ratio] 30.24 kg/m2 Tereso Ball Other [employer] Other 02-19-2023 11:30-0400 Body weight 79.92 kg Tereso Ball Other [employer] Other 02-19-2023 11:30-0400 Diastolic blood pressure 72 mm[Hg] Tereso Ball Other [employer] Other 02-19-2023 11:30-0400 Respiratory rate 12 /min Tereso Ball Other [employer] Other 02-19-2023 11:30-0400 Systolic blood pressure 118 mm[Hg] Tereso Ball Other [employer] Other Encounters Encounter Date Encounter Type Care Provider Facility Start: 06-08-2024 End: 06-08-2024 ambulatory ELLE HENDERSON Not Available Start: 05-18-2024 End: 05-18-2024 ambulatory ELLE HENDERSON Not Available Start: 05-10-2024 End: 05-10-2024 ambulatory [facility] Work Phone: Start: 05-10-2024 End: 05-10-2024 Patient encounter procedure [facility] Work Phone: Start: 05-04-2024 End: 05-04-2024 ambulatory ELLE HENDERSON Not Available Start: 04-27-2024 End: 04-27-2024 ambulatory ELLE HENDERSON Not Available Start: 04-01-2024 End: 04-01-2024 ambulatory PHIL RYAN Not Available Start: 03-11-2024 End: 03-11-2024 ambulatory PHIL RYAN Not Available Start: 03-05-2024 End: 03-05-2024 ambulatory ELLE HENDERSON Not Available Start: 03-02-2024 End: 03-02-2024 ambulatory ELLE HENDERSON Not Available Start: 02-27-2024 End: 02-27-2024 ambulatory ELLE HENDERSON Not Available Start: 02-24-2024 End: 02-24-2024 ambulatory ELLE HENDERSON Not Available Start: 02-20-2024 End: 02-20-2024 ambulatory ELLE HENDERSON Not Available Start: 01-20-2024 End: 01-20-2024 ambulatory PHIL Tripp RYAN Not Available Start: 01-05-2024 End: 01-05-2024 ambulatory Tereso Haider Other [employer] Other Start: 01-05-2024 Telephone encounter Tereso Haider [facility] Start: 01-04-2024 Chart abstracting Phil rincon DO Work Phone: [facility] Start: 10-28-2023 End: 10-28-2023 ambulatory Tereso Haider Other [employer] Other Start: 10-28-2023 Patient encounter procedure Tereso Ball [facility] Start: 10-09-2023 End: 10-09-2023 ambulatory Tereso Ball Other [employer] Other Start: 10-09-2023 Telephone encounter Tereso Ball [facility] Start: 09-23-2023 End: 09-23-2023 ambulatory Tereso Ball Other [employer] Other Start: 09-23-2023 Telephone encounter Tereso Ball [facility] Start: 09-16-2023 End: 09-16-2023 ambulatory Tereso Ball Other [employer] Other Start: 09-16-2023 Office outpatient vi sit 15 minutes Tereso Ball [facility] Start: 08-26-2023 End: 08-26-2023 ambulatory Tereso Ball Other Press Other Start: 08-26-2023 Telephone encounter Tereso Ball [facility] Start: 08-25-2023 End: 08-25-2023 ambulatory Tereso Ball Other Press Other Start: 08-25-2023 Office outpatient vi sit 15 minutes Tereso Ball [facility] Start: 08-25-2023 Telephone encounter Tereso Ball [facility] Start: 08-12-2023 End: 08-12-2023 ambulatory Tereso Ball Other Press Other Start: 08-12-2023 Office outpatient vi sit 15 minutes Tereso Ball [facility] Start: 08-09-2023 End: 08-09-2023 ambulatory Tereso Ball Other Press Other Start: 08-09-2023 Telephone encounter Tereso Ball [facility] Start: 07-29-2023 End: 07-29-2023 ambulatory Tereso Ball Other Press Other Start: 07-29-2023 Telephone encounter Tereso Haider FP [facility] Start: 07-28-2023 End: 07-28-2023 ambulatory Tereso Haider Other Press Other Start: 07-28-2023 Telephone encounter Tereso PULLIAM [facility] Start: 05-19-2023 End: 05-19-2023 ambulatory Tereso Haider Other Press Other Start: 05-19-2023 Encounter by compute r link Tereso Haider [facility] Start: 05-13-2023 End: 05-13-2023 ambulatory Tereso Haider Other Press Other Start: 05-13-2023 Telephone encounter Tereso Haider HERACLIO [facility] Start: 02-19-2023 Office outpatient vi sit 25 minutes Tereso Haider [facility] Start: 02-19-2023 End: 02-20-[address] TERESO HAIDER [employer] Other Start: 12-02-2022 End: 12-03-2022 ambulatory NONE LISTED REQUEST Facility: Start: 09-24-2022 Adult health examination Tereso Haider Other Press Other Start: 01-15-2018 End: 01-16-2018 Evaluation and management of inpatient [facility] Start: 01-12-2018 End: 01-17-2018 Ambulatory [facility] Procedures Date Procedure Procedure Detail Performing Clinician Start: 01-16-2018 INITIATE OXYGEN THER APY PROTOCOL ANGELO VÍCTOR Start: 01-16-2018 PULSE OXIMETRY, CONTINUOUS ANGELO VÍCTOR Start: 01-16-2018 PULSE OXIMETRY, CONTINUOUS ANGELO VÍCTOR Start: 01-16-2018 INTAKE AND OUTPUT ANGELO YO O Start: 01-16-2018 PULSE OXIMETRY, CONTINUOUS ANGELO VÍCTOR Start: 01-15-2018 PULSE OXIMETRY, CONTINUOUS ANGELO VÍCTOR Start: 01-15-2018 DISCHARGE PATIENT ANGELO YO O Start: 01-15-2018 DIET GENERAL ANGELO VÍCTOR Start: 01-15-2018 PULSE OXIMETRY, CONTINUOUS ANGELO VÍCTOR Start: 01-15-2018 ACTIVITY TOLERATED B O VÍCTOR Start: 01-15-2018 AMBULATE PATIENT ANGELO VÍCTOR Start: 01-15-2018 ELEVATE HOB ANGELO VÍCTOR Start: 01-15-2018 INITIATE OXYGEN THER APY PROTOCOL ANGELO VÍCTOR Start: 01-15-2018 INTAKE AND OUTPUT ANGELO YO O Start: 01-15-2018 NEURO/VASCULAR CHECKS B O VÍCTOR Start: 01-15-2018 NURSING COMMUNICATION B O VÍCTOR Start: 01-15-2018 PLACE CERVICAL COLLAR B O VÍCTOR Start: 01-15-2018 PLACE INTERMITTENT PNEUMATIC COMPRESSION DEVICE ANGELO VÍCTOR Start: 01-15-2018 PULSE OXIMETRY, CONTINUOUS ANGELO VÍCTOR Start: 01-15-2018 WOUND CARE ANGELO VÍCTOR Start: 01-15-2018 FULL CODE ANGELO VÍCTOR Start: 01-15-2018 TELEMETRY MONITORING ANGELO VÍCTOR Start: 01-15-2018 VITAL SIGNS ANGELO VÍCTOR Start: 01-15-2018 ICE TO AFFECTED AREA ANGELO VÍCTOR Start: 01-15-2018 PATIENT STATUS (FROM ED OR OR/PROCEDURAL) ANGELO VÍCTOR Start: 01-15-2018 TRANSFER PATIENT ANGELO VÍCTOR Start: 01-15-2018 FLUORO FOR SURGICAL PROCEDURES ANGELO VÍCTOR Start: 01-15-2018 PLACE INTERMITTENT PNEUMATIC COMPRESSION DEVICE ANGELO VÍCTOR Start: 01-12-2018 APTT ANGELO VÍCTOR Start: 01-12-2018 BASIC METABOLIC PANEL B O VÍCTOR Start: 01-12-2018 CBC ANGELO VÍCTOR Start: 01-12-2018 Microscopic urinalysis ANGELO VÍCTOR Start: 01-12-2018 PROTIME-INR ANGELO VÍCTOR Start: 01-12-2018 URINE CULTURE ANGELO VÍCTOR Start: 01-12-2018 URINE RT REFLEX TO CULTURE ANGELO VÍCTOR Start: 01-12-2018 TYPE AND SCREEN ANGELO VÍCTOR Start: 01-12-2018 MRSA SCREENING CULTURE ONLY ANGELO VÍCTOR Start: 01-12-2018 EKG 12-LEAD ANGELO VÍCTOR Start: 11-27-2016 Screening for malign ant neoplasm of colon Tereso Haider Other Start: 11-27-2016 Screening for osteoporosis Tereso Haider Other Start: 11-27-2016 Screening mammography B enjajeni Haider Other Start: 10-27-2015 Screening for malign ant neoplasm of colon Tereso Haider Other Depression screening Wil Haider Other Screening for malign ant neoplasm of breast Tereso Haider Other Plan of Treatment Date Care Activity Detail Author Start: 07-25-2023 Influenza vaccination Influenza Vacc ine (#1) [facility] Immunizations Immunization Date Immunization Notes Care Provider Fa beth 10-28-2023 influenza virus vaccine, unspecified formulation [facility] 10-28-2023 influenza, high dose seasonal, preservative-free Tereso Haider Other [employer] Other 09-24-2022 influenza virus vaccine, split virus (incl. purified surface antigen) Tereso Haider Other [facility] [employer] Other 09-24-2022 influenza virus vaccine, unspecified formulation Phil Ryan DO Work Phone: [facility] 08-21-2021 COVID-19 Vaccine Pfizer - Documentation Purposes Only Tereso Haider Other [facility] 08-21-2021 influenza virus vaccine, split virus (incl. purified surface antigen) Tereso Haider Other [employer] Other 08-21-2021 influenza virus vaccine, unspecified formulation [facility] 01-21-2021 COVID-19 Vaccine Pfizer - Documentation Purposes Only Tereso Haider Other [facility] 12-31-2020 COVID-19 Vaccine Pfizer - Documentation Purposes Only Tereso Haider Other [facility] 09-14-2020 influenza virus vaccine, split virus (incl. purified surface antigen) Tereso Haider Other Press Other 09-14-2020 influenza virus vaccine, unspecified formulation [facility] 04-22-2019 pneumococcal polysaccharide vaccine, 23 valent Tereso Haider Other [facility] 01-18-2019 influenza virus vaccine, split virus (incl. purified surface antigen) Tereso Haider Other [facility] [employer] Other 01-18-2019 influenza virus vaccine, unspecified formulation [facility] 12-17-2016 pneumococcal polysaccharide vaccine, 23 valent Tereso Haider Other [facility] 11-27-2016 pneumococcal conjugate vaccine, 13 valent Tereso Vitaly Other [facility] 11-27-2016 pneumococcal Conjugate, unspecified formulation; Translations: [Need for prophylactic vaccination against Streptococcus pneumoniae (pneumococcus)] Tereso Haider Other Press Other 09-30-2012 diphtheria, tetanus toxoids and acellular pertussis vaccine, unspecified formulation Tereso Vitaly Other [facility] 09-02-2012 tetanus and diphtheria toxoids, adsorbed, preservative free, for adult use (5 Lf of tetanus toxoid and 2 Lf of diphtheria toxoid) Tereso Haider Other [facility] NEGATED: Highlighted row has not occurred! 7 influenza, seasonal, injectable Patient Objection Tereso Haider Other [facility] [employer] Other Payers Date Payer Category Payer Unknown AARP AARP [id number] 2022-Present [address] [place] [address] [id number] 2017 Medicare [id number] 2012 Medicare MEDICARE MEDICAR E PART B [id number] 2012-Present [address] [address] [place] [address] Medicare [id number] 1959 Medicare [id number] 1959 Self-pay [id number] 1959 Unknown [id number] 1947 Unknown [id number] [id number] 1947 Unknown [id number] 2.16.840.1.669138.3.579.2.9 1947 Unknown [id number] 2.16.840.1.380112.3.579.2.1259 1947 Unknown [id number] 2.16.840.1.608656.3.579.2.125 1947 Unknown [id number] 2.16.840.1.392861.3.579.2.1258 1947 Unknown [id number] 2.16.840.1.978738.3.579.2.9 1947 Unknown [id number] 2.16.840.1.131471.3.579.2.1258 1947 Unknown [id number] 2.16.840.1.020780.3.579.2.125 1947 Unknown [id number] 2.16.840.1.009993.3.579.2.1258 1947 Unknown [id number] 2.16.840.1.272571.3.579.2.1259 1947 Unknown [id number] 2.16.840.1.773881.3.579.2.125 1947 Unknown [id number] 2.16.840.1.597310.3.579.2.125 1947 Unknown [id number] 2.16.840.1.755484.3.579.2.125 1947 Unknown [id number] 2.16.840.1.851083.3.579.2.1259 Self-pay Self Pay [id number] Unknown [id number] [id number] Unknown [place]/GISSELLE [id number] Social History Date Type Detail Facility Unknown if ever smoked [employer] Other Start: 07-01-2023 Sex Assigned At [employer] Other Start: 05-29-2023 End: 11-12-2023 Tobacco smoking status NHIS Ex-smoker [facility] Start: 04-24-1966 End: 07-28-2002 History of tobacco use Current smoker [facility] Start: 04-24-1966 End: 07-28-2002 History of tobacco use Cigarette Smoker [facility] Start: 05-29-2023 End: 07-01-2023 Cigarettes smoked current (pack per day) - Reported 0.3 [facility] Start: 05-29-2023 Tobacco use and exposure Smokeless tobacco non-user [facility] Start: 07-01-2023 Alcohol intake Current drinker of alcohol (finding) [facility] Start: 05-29-2023 Tobacco Comment Smoked 3 or 4 cigarettes a day, quit for 21 years. [facility] Start: 1945 Sex Assigned At Female [facility] Start: 05-22-2023 Gender identity Identifies as female gender (finding) [facility] Start: 05-22-2023 Sexual orientation Heterosexual (finding) [facility] Clinical Notes 02-19-2023 to 01-05-2024 Note Date & Type Note Facility 01-05-2024 Evaluation note Encounter Date Diagnosis Assessment Notes Dec, Primary insomnia (ICD-10 - F51.01) [facility] [employer] Other [id number] Evaluation note* Encounter Date Diagnosis Assessment Notes Treatment Notes Treatment Clinical Notes Oct, Medicare annual wellness visit, subsequent (ICD-10 - Z00.00) Personalized health advice was given to the beneficiary including a written plan for screenings discussed and provided. Advanced care planning reviewed and/or information given as requested. Additional counseling was provided here today in regards to, [ ]. The above visit was performed by [ ], under direct supervision of [ ]. Document reviewed and amended by provider signed below. Oct, Sinus tachycardia (ICD-10 - R00.0) Oct, Primary hypertension (ICD-10 - I10) This patient is instructed to consume a healthy, low-fat, low-salt diet. They are also encouraged to continue exercise to achieve/maintain a normal BMI. Patient is instructed on home BP measurements: - rest for 5 minutes w/o talking- positioned w/ feet on floor and arm supported- average best 2/3 readings w/ goal < 135/85 Oct, ALYSSA (generalized anxiety disorder) (ICD-10 - F41.1) Healthy diet and exercise. Keep active Avoid stimulants Slowly wean Ativan - stop night time dose - after week, take morning dose only as needed Oct, Screening mammogram for breast cancer (ICD-10 - Z12.31) Instructed patient on monthly SBE and yearly mammograms. Oct, Other obesity due to excess calories (ICD-10 - E66.09) Oct, Body mass index [BMI] 30.0-30.9, adult (ICD-10 - Z68.30) Press Other 10-31-2023 Evaluation note* Encounter Date Diagnosis Assessment Notes Treatment Notes Treatment Clinical Notes Aug, ALYSSA (generalized anxiety disorder) (ICD-10 - F41.1) [facility] Other 10-24-2023 Evaluation note* Encounter Date Diagnosis Assessment Notes Treatment Notes Treatment Clinical Notes Aug, Sinus tachycardia (ICD-10 - R00.0) Avoid stimulants Wean off Metoprolol Much improved at this time except associated w/ anxiety. Aug, Primary hypertension (ICD-10 - I10) This patient is instructed to consume a healthy, low-fat, low-salt diet. They are also encouraged to continue exercise to achieve/maintain a normal BMI. Wean off Metoprolol Continue Lisinopril and HCTZ Aug, ALYSSA (generalized anxiety disorder) (ICD-10 - F41.1) Healthy diet and exercise. Ativan as needed for extreme anxiety, panic attacks. Initiate Lexapro - aware that will take up to 4-6 wks to reach maximum benefit [facility] Other 10-02-2023 Evaluation note* Encounter Date Diagnosis Assessment Notes Treatment Notes Treatment Clinical Notes Aug, Tachycardia (ICD-10 - R00.0) [facility] Other 10-02-2023 Evaluation note* Encounter Date Diagnosis Assessment Notes Treatment Notes Treatment Clinical Notes Aug, Sinus tachycardia (ICD-10 - R00.0) Hydrate and avoid stimulants. Initiate Metoprolol r/o electrolyte abnormality r/o hyperthyroid Aug, Primary hypertension (ICD-10 - I10) This patient is instructed to consume a healthy, low-fat, low-salt diet. They are also encouraged to continue exercise to achieve/maintain a normal BMI. Patient is instructed on home BP measurements: - rest for 5 minutes w/o talking- positioned w/ feet on floor and arm supported- average best 2/3 readings w/ goal < 135/85 Aug, ALYSSA (generalized anxiety disorder) (ICD-10 - F41.1) Healthy diet, exercise and keep active [facility] Other 09-19-2023 Evaluation note* Encounter Date Diagnosis Assessment Notes Treatment Notes Treatment Clinical Notes Jul, Primary hypertension (ICD-10 - I10) This patient is instructed to consume a healthy, low-fat, low-salt diet. They are also encouraged to continue exercise to achieve/maintain a normal BMI. Patient is instructed on home BP measurements: - rest for 5 minutes w/o talking- positioned w/ feet on floor and arm supported- average best 2/3 readings w/ goal < 135/85 Jul, ALYSSA (generalized anxiety disorder) (ICD-10 - F41.1) Likely due to events of past week along w/ use of Cortisone. Instructed on healthy diet, exercise and relaxation. She is sleeping well at night but feels fight vs flight reaction during daytime Discussed short course of Ativan until everything returns to normal Jul, Bee sting, accidental or unintentional, subsequent encounter (ICD-10 - T63.441D) Instructed to use Epipen for swelling of lips, tongue, eyes or SOB, wheezing, coughing She is to avoid stinging insects as best she can. ER for any further stings w/ systemic reaction [facility] Other 09-05-2023 Evaluation note* Encounter Date Diagnosis Assessment Notes Treatment Notes Treatment Clinical Notes Jul, Primary insomnia (ICD-10 - F51.01) Press Other 06-20-2023 Evaluation note* Encounter Date Diagnosis Assessment Notes Treatment Notes Treatment Clinical Notes Apr, Primary insomnia (ICD-10 - F51.01) [facility] Other 03-29-2023 Evaluation note* Encounter Date Diagnosis Assessment Notes Treatment Notes Treatment Clinical Notes Jan, Essential hypertensi on (ICD-10 - I10) This patient is instructed to consume a healthy, low-fat, low-salt diet. They are also encouraged to continue exercise to achieve/maintain a normal BMI. Jan, Type 2 diabetes mellitus with hyperglycemia, without long-term current use of insulin (ICD-10 - E11.65) This patient is following a comprehensive diabetic treatment plan. They are checking their feet daily for calluses and nonhealing ulcers. They are being seen for yearly dilated eye examinations. Goals: SBP less than 130, LDL less than 100, FBS less than 140, AC and A1C less than 7%. They are checking their BS daily, will which are reviewed at the office visit. A1C: 5.7%, FBS > 125 Jan, Gastroesophageal reflux disease with esophagitis without hemorrhage (ICD-10 - K21.00) Diet instructions: Smaller portions, avoid eating and laying flat, avoid eating or drinking prior to bedtime. Weight loss. Jan, Dysfunction of both eustachian tubes (ICD-10 - H69.83) Flonase NS, saline NS, valsalva maneuver. No s/s infection. Jan, Primary insomnia (ICD-10 - F51.01) Weaning off Zolpidem. Suggest qod for couple weeks and stop. Instructed on proper bedtime routing, avoid TV, exercise and computer/phone Jan, Cervical spondylosis (ICD-10 - M47.812) ROM exercises, heat/ice and Tylenol as needed. Jan, Lumbar spondylosis (ICD-10 - M47.816) The patient is instructed to avoid bending, twisting or lifting. They are to use intermittent heat and ice as needed. They may schedule a massage or gentle manipulation. They may safely use Tylenol as needed. Jan, Nicotine dependence, cigarettes, in remission (ICD-10 - F17.211) Continue abstinence [facility] Other Evaluation noteNo [employer] Other Evaluation noteNo assessment information available [facility] Work Phone: History general Narrative - Reported* Type Description Date Medical History varicose veins Medical History HTN Medical History DJD Medical History Nicotine dependence, cigarettes, in remission Medical History Lumbar spondylosis Medical History Osteopenia of lumbar spine Medical History Cervical spondylosis Medical History Essential hypertension Medical History 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 Medical History Iliotibial band syndrome, right Medical History Pyriformis syndrome, right Medical History Hip pain, right Medical History Irritable bowel synd refugio with both constipation and diarrhea Medical History Primary insomnia Surgical History cholecystectomy Surgical History hysterectomy, total with [facility]O Surgical History Foot Surgery Surgical History maria teresa/bso Hospitalization History hysterectomy Hospitalization History childbirth [facility] Other History general [facility] - [facility] [employer] Other Summary Purpose Family History No Family History Records Found Relationship Condition Age at Onset Recorded Date/T chivo father Heart disease Unknown Unknown Not Specified Unknown Advance Directives No Advanced Directives Records Found Advance Directive Response Recorded Date/ Time Advance Directives No December 10:41am Chief Complaint and Reason for Visit Chief Complaint allergies Additional Source Comments INFORMATION SOURCE (unrecogn ized section and content) DATE CREATED AUTHOR 05/15/2018 [facility] DATE CREATED AUTHOR AUTHOR'S ORGANIZ ATION 09/16/2020 [facility] DATE CREATED AUTHOR AUTHOR'S ORGANIZ ATION 02/28/2023 [facility] DATE CREATED AUTHOR AUTHOR'S ORGANIZ ATION 06/11/2024 [facility] EPIC REASON FOR VISIT (unrecogniz ed section and content) Check UpNo InformationNo Inf ormationNo InformationNo InformationTBHIncreased EKGincreased HRLab Resultsbp medication discussionMedicationBPwellnessNo Information Care Teams (unrecognized sec tion and content) Chairman & Co Founder Relationship Specialty Start Date End Date Tereso Haider MD [address] [place] [address] PCP - General 05/22/23 Team Status: Active Member Role Status Dates Tereso Haider DO Primary Care Provider Active Team Status: Inactive Member Role Status Dates Tereso Haider DO Primary Care Provide r, Attending Provider Active Start: May 10, 2024 End: May 10, 2024 Goals (unrecognized section and content) Goals may be documented in a n alternate section FOR RECORDS PERTAINING TO PATIENTS WHO ARE OR HAVE BEEN ENROLLED IN A CHEMICAL DEPENDENCY/SUBSTANCEABUSE PROGRAM, SOME INFORMATION MAY BE OMITTED. This clinical summary was aggregated from multiple sources. Caution should be exercised in using it in the provision of clinical care. This summary normalizes information from multiple sources, and as a consequence, information in this document may materially change the coding, format and clinical context of patient data. In addition, data may be omitted in some cases. CLINICAL DECISIONS SHOULD BE BASED ON THE PRIMARY CLINICAL RECORDS. [facility] [employer] [facility]. provides no warranty or guarantee of the accuracy or completeness of information in this document.
--- NOTE | 2024-06-17 12:32 | P.CN_ITS ---
Consult Note: HPI Data of Consult Patient: new to practice Requesting Physician: Lisha Sandoval NP Primary Care Provider: Tereso Haider DO Consult Narrative Reason for consult: establish chronic right shoulder pain Narrative: Tracey Haider a pleasant 79 year old female presents for evaluation and management of chronic right shoulder and generalized joint pain. Hx of right shoulder pain greater than 1 year, hx of small tear to rotator cuff. Found benefit to cortisone injections but is interested in alternative options. Failed PT greater than 6 weeks. Cannot tolerate celebrex due to upset stomach, finds benefit to tylenol 1000mg TID PRN. Advised not to take NSAIDs with CKD. Pt looking to avoid surgical intervention. Hx of FM as of 1997 per pt. Hx of CTS surgery to left hand. 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) Family History Mother Family history of cancer Family history of diabetes mellitus Family history of hypertension Father Family history of myocardial infarction Social History Within the past year, how often did you have a drink containing alcohol: monthly or less Within the past year, how often did you have six or more drinks on one occasion: never Smoking status: Never smoker Non-prescribed substance use: denies use Previous occupational history: sorrowful mother karon Known occupational exposures/hazards: No Highest level of school completed/degree received: Associate degree: academic program Are you now , , , , never or living with a partner: Little interest or pleasure in doing things: not at all Feeling down, depressed, or hopeless: not at all Feel stressed/tense/nervous/anxious/difficulty sleeping: not at all Do you think of yourself as: straight/heterosexual Gender Identity: female Meds Home Medications and Allergies Home Medications ?Medication ?Instructions ?Recorded ?Confirmed ?Type acetaminophen 500 mg tablet (Pain 1,000 mg PO Q6H PRN pain 08/03/23 08/03/23 History Relief (acetaminophen)) calcium 08/03/23 History glucosamine sulf dipot cap PO DAILY 08/03/23 History chlr,msm,chond 550 mg-C 30 mg-mercy 1 mg capsule (Glucosamine Chondroitin) multivitamin (Daily Multi-Vitamin 1 tab PO DAILY 08/03/23 08/03/23 History tablet) zolpidem 5 mg tablet 2.5 mg PO DAILY PRN insomnia 08/03/23 08/03/23 History epinephrine 0.3 mg/0.3 mL 0.3 mg (0.3 mL) IM Q10M PRN 08/04/23 Rx injection, auto-injector (EpiPen allergic reacion #2 ea [id number]) lisinopril 20 1 tab PO DAILY 08/04/23 08/04/23 History mg-hydrochlorothiazide 12.5 mg tablet (Zestoretic) metoprolol tartrate 25 mg tablet 25 mg PO BID #60 tabs 08/04/23 Rx Allergies Allergy/AdvReac Type Severity Reaction Status Date / Time No Known Drug Allergies Allergy Verified 08/03/23 15:41 Exam Constitutional Documenting provider has reviewed patient's vital signs: yes Common normals: no apparent distress, oriented x3, healthy appearing, alert and well nourished General appearance: cooperative [facility] Common normals: normocephalic, hearing grossly normal bilaterally and moist oral mucous membranes Head and scalp: normocephalic Eye Common normals: PERRL Pupil: PERRL Neck & C-Spine Common normals: full ROM General: normal visual inspection Chest Common normals: inspection of chest normal Respiratory Common normals: normal respiratory effort, no retractions and no use of accessory muscles Extremity Right upper extremity: shoulder joint Other: increased pain with overhead ROM, crossbody abduction, posterior liftoff. pain and altered sensation following right suprascapular and axillary nerve Neuro Common normals: oriented x3, CN's II-XII intact bilaterally, moves all extremities, no focal motor deficits, no sensory deficits noted, deep tendon reflexes 2+ bilaterally and gait normal Sensorium/orientation: alert Motor exam: strength 5/5 throughout and no movement abnormalities noted Psych Common normals: mental status grossly normal, thought process normal, cooperative, affect normal, speech normal and activity/motor behavior normal Speech: normal speech Thought process: normal thought process Assessment and Plan Assessment and Plan (1) Osteoarthritis of right shoulder: (2) Right shoulder pain: (3) Rotator cuff tear arthropathy of right shoulder: (4) Osteoarthritis: (5) Fibromyalgia: Plan PT for chronic right shoulder pain/OA continue current medications as tolerated, encouraged topical voltaren gel TID to affected joints defer cymbalta for FM/OA at this time, can consider in the future if pt agreeable to routine medication however shes failed many medications in the past due to side effects f/u after PT
== END 2024-06-17 12:00 | disposition home or self-care (01) ==
LOC: PM 12:00
PROVIDERS: PCP Internal Medicine; Visit Provider Nurse Practitioner
DX: M19.011 Primary osteoarthritis, right shoulder (principal); M25.511 Pain in right shoulder; M75.101 Unspecified rotator cuff tear or rupture of right shoulder, not specified as traumatic; M79.7 Fibromyalgia
CPT/HCPCS: G0463

== ENCOUNTER 2024-06-23 12:51 | Outpatient (RCR) | payer MEDICARE, SELFPAY | END 2024-06-30 15:17 | disposition home or self-care (01) | LOC: PT 12:51 | PROVIDERS: PCP Internal Medicine; Visit Provider Nurse Practitioner | DX: M25.511 Pain in right shoulder (principal); M19.011 Primary osteoarthritis, right shoulder | CPT/HCPCS: 97010; 97110; 97112; 97162; G0283 ==

== ENCOUNTER 2024-10-22 08:28 | Outpatient (OUT) | payer MEDICARE, SELFPAY ==
--- NOTE | 2024-10-22 | XR_ITS ---
The [address] [address] Patient Name: RIVER ELIZONDO MRN: [id number] date: 1945 Sex: F Assigned Patient Location: [facility] Current Patient Location: [facility] Accession/Order Number: [id number] Exam Date: 10/22/2024 09:05 Report Date: 10/24/2024 12:28 At the request of: SONJA ELIZONDO Procedure: XR foot ANASTASIYA min 3V EXAMINATION: XR foot ANASTASIYA min 3V HISTORY: Pain in both feet COMPARISON: No relevant comparison available. FINDINGS: RIGHT FINDINGS: BONES: Mild degenerative changes of the first metatarsophalangeal joint and joints of the midfoot. Large degenerative disease of findings at the Achilles tendon and plantar aponeurosis insertions into the calcaneus. SOFT TISSUES: No visible soft tissue swelling. OTHER: Negative. LEFT FINDINGS: BONES: Mild degenerative changes the first metatarsophalangeal joint. Degenerative enthesophyte at Achilles tendon insertion into calcaneus. No fracture or dislocation. SOFT TISSUES: No visible soft tissue swelling. OTHER: Negative. XR/XR foot ANASTASIYA min 3V IMPRESSION: RIGHT CONCLUSION: Mild degenerative changes. No acute abnormality. LEFT CONCLUSION: Mild degenerative changes. No acute abnormality. Electronically authenticated by: KAMALJIT FRANKS Date: 10/24/2024 12:28
--- NOTE | 2024-10-22 | XR_ITS ---
The [address] [address] Patient Name: RIVER ELIZONDO MRN: [id number] date: 1945 Sex: F Assigned Patient Location: [facility] Current Patient Location: Accession/Order Number: [id number] Exam Date: 10/22/2024 08:35 Report Date: 10/24/2024 12:24 At the request of: SONJA ELIZONDO Procedure: XR knee ANASTASIYA 4V EXAMINATION: XR knee ANASTASIYA 4V HISTORY: Pain in both knees COMPARISON: No relevant comparison available. FINDINGS: RIGHT FINDINGS: BONES: Small separate ossification cephalad to the patella favoring sequela of remote injury. Small degenerative osteophyte along the inferior articular margin. No significant joint space narrowing. No fracture or dislocation. SOFT TISSUES: No visible soft tissue swelling. OTHER: Negative. LEFT FINDINGS: BONES: Small degenerative osteophytes along the articular margins of the patella. No fracture, dislocation, or significant joint space narrowing. SOFT TISSUES: No visible soft tissue swelling. OTHER: Negative. XR/XR knee ANASTASIYA 4V IMPRESSION: RIGHT CONCLUSION: Mild degenerative changes. LEFT CONCLUSION: Mild degenerative changes. Electronically authenticated by: KAMALJIT FRANKS Date: 10/24/2024 12:24
--- OUTSIDE RECORDS SUMMARY | 2024-10-22 08:31 | XMS_ITS | CCD ---
Author Organization [facility] Care Team Providers Care Wood Flooring Specialist Name Role Phone VÍCTOR, ANGELO H. Unavailable Unavailable TERESO HAIDER Unavailable Unavailable VÍCTOR, ANGELO H. Unavailable Unavailable VÍCTOR, ANGELO H. Unavailable Unavailable TERESO HAIDER Unavailable Unavailable VÍCTOR, ANGELO H. Unavailable Unavailable Tereso Haider Unavailable CARO, DR CASILLAS Attending Unavailable BALL, DR CASILLAS Consulting Unavailable CARO, DR CASILLAS Primary Care Unavailable CARO, DR CASILLAS Admitting Unavailable REQUEST, NONE LISTED Consulting Unavailtripp valdez REQUEST, NONE LISTED Admitting Unavailtripp HAIDER, DR CASILLAS Primary Care Unavailable REQUEST, NONE LISTED Attending Tereso Cavanaugh MD Primary Care Provider Grace Linares Attending Unavailable BROWN, PHIL A Referring Unavailable BROWN, PHIL A Attending Unavailable BLACKSTON, GEENA Attending Unavailable BROWN, PHIL A Referring Unavailable BLACKSTON, GEENA Attending Unavailable BROWN, PHIL A Referring Unavailable BLACKSTON, GEENA Attending Unavailable BROWN, PHIL A Referring Unavailable BLACKSTON, GEENA Attending Unavailable BROWN, PHIL A Referring Unavailable BLACKSTON, GEENA Attending Unavailable BROWN, PHIL A Referring Unavailable BROWN, PHIL A Attending Unavailable BROWN, PHIL A Attending Unavailable BLACKSTON, GEENA Attending Unavailable BROWN, PHIL A Referring Unavailable BLACKSTON, GEENA Attending Unavailable BROWN, PHIL A Referring Unavailable BLACKSTON, GEENA Attending Unavailable BROWN, PHIL A Referring Unavailable BLACKSTON, GEENA Attending Unavailable BROWN, PHIL A Referring Unavailable BROWN, PHIL A Referring Unavailable BROWN, PHIL A Attending Unavailable BROWN, PHIL A Attending Unavailable BLACKSTON, GEENA Attending Unavailable BROWN, PHIL A Referring Unavailable BLACKSTON, GEENA Attending Unavailable BROWN, PHIL A Referring Unavailable BLACKSTON, GEENA Attending Unavailable BROWN, PHIL A Referring Unavailable BLACKSTON, GEENA Attending Unavailable BROWN, PHIL A Referring Unavailable BROWN, PHIL A Attending Unavailable BROWN, PHIL A Referring Unavailable Allergies Allergy Classification Reported Allergen(s) Allergy Type Date of Onset Reaction(s) Facility (3 sources) patient allergy list reviewed by nurse or physicia Propensity to adverse reactions 5 Comment:Done Color Eight Other Medications Current Medications Medication Drug Class(es) Dates Sig (Normalized) Sig (Original) azithromycin 250 mg oral tablet (1 source) Macrolide Antimicrobial Start: 10-11-2024 Azithromycin 250 mg tablet Active 250 MG PO .COMPLEX 6 5 October 11, 2024 12:00am 2 tabs on first day followed by 1 tab on days 2-5 Calcium (15 sources) Phosphate Binder, Calcium Calcium 1 tab Oral Active Calcium 1 tab Or al Not-Taking calcium carbonate 1250 mg or al tablet (2 sources) Start: 12-24-2017 Calcium Carbon ate (Calcium 500) 500 mg calcium (1,250 mg) Tablet Active TABLET December 24, 2017 12:00am Centrum Silver 50+Women - (15 sources) Centrum Silver 5 0+Women - Orally Active Centrum Silver 5 0+Women - Orally Not-Taking chondroitin sulfates 400 mg / glucosamine sulfate 500 mg oral tablet (15 sources) take 1 tablet by mouth in the morning, then take 1 tablet by mouth in the evening, then take 1 tablet by mouth at bedtime glucosamine-chondroitin 500-400 MG tablet Take 1 tablet by mouth in the morning and 1 tablet in the evening and 1 tablet before bedtime. Active DELETED Baclofen 2%, Cyclobenzaprine HCl 2%, [...] days Aug, Active Fish Oil + D3 6118-2065 MG-UNIT (15 sources) take 1 capsule by mouth three times daily Fish Oil + D3 8690-3820 MG-UNIT 1 capsule Orally Three times a day Active take 1 capsule by mouth three ti mes daily Fish Oil + D3 3837-6362 MG-UNIT 1 capsule Orally Three times a day Not-Taking fluticasone (6 sources) Corticosteroid Start: 02-19-2023 Start: 02-19-2023 take 1-2 spray(s) na cordelia route once daily at bedtime FLONASE 50 mcg 1-2 sprays each NOSTRIL nasal QHS for 30 days Jan, Active gadoteridol (Prohance) injection 5,586 mg (15 sources) Start: 06-24-2023 gadoteridol (Prohance) injection 5,586 mg hydroCHLOROthiazide 12.5 mg / lisinopril 20 mg oral tablet (20 sources) Thiazide Diuretic, Angiotensin Converting Enzyme Inhibitor Start: 08-09-2024 take 1 tablet by mouth once daily Lisinopril-[place] chlorothiazide 20-12.5 mg tablet Active 0 .ROUTE .COMPLEX 90 August 09, 2024 12:29pm TAKE 1 TABLET BY MOUTH DAILY Start: 01-26-2024 End: 08-09-2024 take 1 tablet by mouth once daily Lisinopril-Hydrochlorothiazide 20-12.5 m g tablet Discontinued 1 TAB PO Daily January 26, 2024 2:32pm August 09, 2024 12:29pm Start: 12-24-2017 End: 01-26-2024 lisinopril-hydroCHLOROthiazi de 20-12.5 MG tablet 12/25/2023 Active take 1 tablet by samantha th once daily Lisinopril-hydroCHLOROthiazide 20-12.5 M G TAKE 1 TABLET BY MOUTH DAILY Active take 1 tablet by samantha th once daily Lisinopril-hydroCHLOROthiazide 20-12.5 M G TAKE 1 TABLET BY MOUTH DAILY Active lisinopril 10 mg oral tablet (15 sources) Angiotensin Converting Enzyme Inhibitor take 1 tablet by mouth once daily lisinopril 10 MG tablet Take 10 mg by mouth 1 (one) time each day at the same time. Active Multiple Vitamin (multivitamin) tablet (14 sources) take 1 tablet by mouth once daily Multiple Vitamin (multivitamin) tablet Take 1 tablet by mouth Daily Active Xschggdn-Hqg-Ogwi-Fa -Vit K-Lut (Centrum Silver Women) 8 mg iron-400 mcg-300 mcg Tablet (2 sources) Start: 12-24-2017 Khwukbns-Smr-Clci-F a-Vit K-Lut (Centrum Silver Women) 8 mg iron-400 mcg-300 mcg Tablet Active TABLET December 24, 2017 12:00am Start: 12-24-2017 Fnperseo-Xtj-G lucia-Fa-Vit K-Lut (Centrum Silver Women) 8 mg iron-400 mcg-300 mcg Tablet Active TABLET December 24, 2017 1:00am nabumetone 750 mg oral tablet (1 source) Nonsteroidal Anti-inflammatory Drug Start: 10-11-2024 take 1 tablet by mouth twice daily Nabumetone 750 mg tablet Active 750 MG PO Twice daily October 11, 2024 12:00am Tylenol Extra Strength 500 MG (14 sources) take 2 tablets by mouth every six hours as needed Tylenol Extra Strength 500 MG 2 tablets as needed Orally every 6 hrs Active take 2 tablets by mo uth every six hours as needed Tylenol Extra Strength 500 MG 2 tablets as needed Orally every 6 hrs Not-Taking zolpidem tartrate 5 mg oral tablet (20 sources) gamma-Aminobutyric Acid-ergic Agonist Start: 01-14-2024 End: 09-26-2024 take 1 tablet by mouth once daily at bedtime Zolpidem 5 mg tablet Active 5 MG PO Daily at bedtime September 26, 2024 7:51pm Start: 01-05-2024 Zolpidem Tartr ate 5 MG [...] 2.5 mg by mouth Daily as needed. Active Completed/Discontinued Medications Medication Drug Class(es) Dates Sig (Normalized) Sig (Original) acetaminophen 325 mg oral tablet (20 sources) Start: 01-23-2024 End: 05-10-2024 take 2 tablets by mouth every six hours as needed Acetaminophen (Tylenol) 325 mg tablet Discontinued 325 MG PO Every 6 hours January 23, 2024 12:00am May 10, 2024 10:43am 2 tablets as needed Orally every 6 hrs Start: 12-24-2017 End: 01-23-2024 take 1 tablet by mouth every six hours Acetaminophen (Tylenol Extra Strength) 500 mg tablet Active 500 MG PO Every 6 hours January 23, 2024 12:21pm take 2 tablets by mo uth every six hours Tylenol Extra Strength 500 MG 2 tablets as needed Orally every 6 hrs Active take 2 tablets by mo uth every six hours Tylenol 325 MG 2 tablets as needed Orally every 6 hrs Active take 2 tablets by mo uth every six hours acetaminophen 325 mg / HYDROcodone bitartrate 5 mg oral tablet (2 sources) Opioid Agonist Start: 08-16-2024 End: 08-26-2024 take 1 tablet by mouth every four hours HYDROcodone-acetaminophen (Delia) 5-325 MG tablet Indications: Right shoulder pain, unspecified chronicity Take 1 tablet by mouth every 4 (four) hours if needed (pain) for up to 7 days 20 tablet 08/16/2024 08/26/2024 Discontinued (Therapy completed) ALPRAZolam 0.5 mg oral tablet (2 sources) Benzodiazepine Start: 12-24-2017 End: 01-23-2024 Alprazolam 0.5 mg tablet Discontinued TABLET December 24, 2017 12:00am January 23, 2024 12:22pm Start: 12-24-2017 End: 01-23-2024 Alprazolam Discontinued TABL ET December 24, 2017 1:00am January 23, 2024 1:22pm betamethasone 3 mg/ml / betamethasone acetate 3 mg/ml injectable suspension (4 sources) Corticosteroid Start: 08-26-2024 End: 08-26-2024 betamethasone acetate-betamethasone sodium phosphate (C[place]estone) injection 0.5 mL Start: 08-26-2024 End: 08-26-2024 0.5 mL, Intra-articular, Onc e PRN Procedure, Starting on Yessenia 08/26/24 at 1630, For 1 dose celecoxib 100 mg oral capsule (5 sources) Nonsteroidal Anti-inflammatory Drug Start: 08-16-2024 End: 11-14-2024 take 1 capsule by mouth in the morning for pain celecoxib (CeleBREX) 100 MG capsule Indications: Right shoulder pain, unspecified chronicity Take 1 capsule (100 mg) by mouth in the morning and 1 capsule (100 mg) before bedtime. Take as needed for pain. 60 capsule 08/16/2024 08/26/2024 Discontinued (Therapy completed) Start: 05-10-2024 take 1 capsule by [facility] once daily Celecoxib (Celebrex) 200 mg capsule Active 200 MG PO Daily May 09, 2024 11:00pm docusate sodium 100 mg oral capsule (3 sources) Start: 08-16-2024 End: 08-26-2024 take 1 capsule by mouth twice daily as needed for constipation docusate sodium (Colace) 100 MG capsule Indications: Right shoulder pain, unspecified chronicity Take 1 capsule (100 mg) by mouth 2 (two) times a day as needed for constipation for up to 10 days 20 capsule 08/16/2024 08/26/2024 Discontinued (Therapy completed) Lidocaine (1 source) Antiarrhythmic, Amide Local Anesthetic Start: 11-13-2023 Lidocaine Oct, 2 mg LORazepam 0.5 mg oral tablet (14 sources) Benzodiazepine Start: 01-23-2024 End: 01-26-2024 take 0.5-1 tablets by mouth twice daily as needed Lorazepam 0.5 mg tablet Discontinued 0.5 MG PO Twice daily January 23, 2024 12:00am January 26, 2024 2:32pm 1/2 to 1 tablet Orally bid as [...] succinate 25 mg extended release oral tablet (10 sources) beta-Adrenergic Mitra Start: 01-23-2024 End: 01-26-2024 take 1 tablet by mouth once daily Metoprolol Succinate 25 mg tablet extended release 24 hr Discontinued 25 MG PO Daily January 23, 2024 12:00am January 26, 2024 2:32pm Start: 08-25-2023 take 1 tablet by samantha [...] Date Documented Da te Episodic/Chronic Acute bronchitis (5 sources) Acute bronchitis; Translations: [Acute bronchitis, unspecified] 10-11-2024 Episodic Anxiety disorders (20 sources) Claustrophobia; Translations: [Claustrophobia] Chronic Cardiac dysrhythmias (4 sources) Tachycardia, unspecified Episodic Conditions associated with dizziness or vertigo (18 sources) Benign paroxysmal positional vertigo; Translations: [Benign paroxysmal vertigo, bilateral] Episodic Diabetes mellitus with complications (20 sources) Type 2 diabetes mellitus; Translations: [Type 2 diabetes mellitus with hyperglycemia] Onset: 02-19-2023 Chronic Diabetes mellitus without complication (1 source) Impaired fasting glycemia; Translations: [Impaired fasting glucose] 07-05-2024 Episodic Esophageal disorders (20 sources) Gastro-esophageal reflux disease with esophagitis; Translations: [Gastroesophageal reflux disease with esophagitis without hemorrhage] 01-23-2024 Chronic Esophageal disorders (4 sources) Esophageal disorders; Translations: [Gastro-esophageal reflux disease with esophagitis, without bleeding] Essential hypertension (20 sources) Essential hypertension; Translations: [Essential (primary) hypertension] Onset: 03-03-2015 Chronic Immunizations and screening for infectious disease (3 sources) Vaccination given; Translations: [Encounter for immunization] Episodic Inflammation; infection of eye (except that caused by tuberculosis or sexually transmitteddisease) (1 source) Allergic conjunctivitis; Translations: [Acute atopic conjunctivitis, unspecified eye] 05-10-2024 Episodic Menopausal disorders (3 sources) Primary ovarian failure; Translations: [Other primary ovarian failure] Onset: 04-22-2019 Chronic Miscellaneous mental health disorders (20 sources) Primary insomnia; Translations: [Primary insomnia] Chronic Nonmalignant breast conditions (3 sources) Fibrocystic disease of breast; Translations: [Diffuse cystic mastopathy of unspecified breast] Chronic Nutritional deficiencies (3 sources) Vitamin D deficiency; Translations: [Vitamin D deficiency, unspecified] Onset: 07-15-2014 Chronic Osteoarthritis (10 sources) Osteoarthritis of knee; Translations: [Bilateral primary [...] Episodic Other bone disease and musculoskeletal deformities (2 sources) Osteopenia; Translations: [Other specified disorders of bone density and structure, other site] 01-23-2024 Episodic Other congenital anomalies (3 sources) Congenital spondylolysis of lumbosacral region; Translations: [Congenital spondylolysis, lumbosacral region] Onset: 09-30-2017 Chronic Other connective tissue disease (18 sources) Enthesopathy of hip region; Translations: [Iliotibial band syndrome, right leg] Episodic Other connective tissue disease (4 sources) Fibromyalgia; Translations: [Fibromyalgia] 10-11-2024 Episodic Other connective tissue disease (1 source) Supraspinatus tear; Translations: [Unspecified rotator cuff tear or rupture of right shoulder, not specified as traumatic] Episodic Other connective tissue disease (2 sources) Iliotibial band friction syndrome of right knee; Translations: [Iliotibial band syndrome, right leg] 01-23-2024 Episodic Other connective tissue disease (14 sources) Triggering of digit; Translations: [Trigger finger, right middle finger] Onset: 09-03-2024 09-03-2024 Episodic Other connective tissue disease (1 source) Foot pain; Translations: [Pain in right foot] 10-11-2024 Episodic Other connective tissue disease (1 source) Fibromyalgia; Translations: [Myalgia and myositis, unspecified] 10-11-2024 Episodic Other connective tissue disease (1 source) Pain in right foot; Translations: [Pain in limb] 10-11-2024 Episodic Other gastrointestinal disorders (20 sources) Irritable bowel syndrome; Translations: [Mixed irritable [...] lower limb] Chronic Other nervous system disorders (20 sources) Carpal tunnel syndrome; Translations: [Carpal tunnel syndrome, unspecified upper limb] Onset: 03-22-2016 01-26-2024 Chronic Other nervous system disorders (3 sources) Lesion of ulnar nerve; Translations: [Lesion of ulnar nerve, unspecified upper limb] Onset: 11-27-2016 Chronic Other nervous system disorders (3 sources) Hereditary peripheral neuropathy; Translations: [Unspecified hereditary and idiopathic peripheral neuropathy] Onset: 03-03-2015 Chronic Other nervous system disorders (4 sources) Carpal tunnel syndrome of right wrist; Translations: [Carpal tunnel syndrome, right upper limb] 09-03-2024 Chronic Other non-traumatic joint disorders (3 sources) [...] [Pain in right hip] 01-23-2024 Episodic Other non-traumatic joint disorders (3 sources) Pain in right knee; Translations: [Pain in both knees] 10-11-2024 Episodic Other nutritional; endocrine; and metabolic disorders [...] to pollen] Chronic Other upper respiratory disease (4 sources) Allergic rhinitis; Translations: [Allergic rhinitis, unspecified] 05-10-2024 Chronic Other upper respiratory infections (6 sources) [...] remission] Chronic Varicose veins of lower extremity (17 sources) Pain co-occurrent and due to varicose [...] [Radial styloid tenosynovitis] Onset: 04-22-2019 Episodic Other connective tissue disease (18 sources) Pain of left hand; Translations: [Pain in left hand] Onset: 02-20-2024 Resolved: 09-03-2024 02-20-2024 Episodic Other nervous system disorders (3 sources) Paresthesia; Translations: [Paresthesia of skin] Onset: 10-24-2014 Episodic Other non-traumatic joint disorders (15 sources) Pain of left wrist; Translations: [Pain in left wrist] Onset: 02-20-2024 02-20-2024 Episodic Other upper respiratory disease (3 sources) Seasonal allergic rhinitis; Translations: [Other seasonal allergic rhinitis] Resolved: 12-04-2021 Chronic Screening and history of mental health and substance abuse codes (3 sources) History of tobacco use; Translations: [Personal history of tobacco use, presenting hazards to health] Onset: 09-16-2017 Episodic Results Test Name Value Interpretation Reference Range Facility No Panel Informationon 08-26 Chaya Rankin 024 5:53 PM Hand / UE Inj/Asp for trigger finger on 08/26/2024 4:30 PM Indications: pain Details: 25 G needle Medications: 0.5 mL betamethasone acetate-betamethasone sodium phosphate 6 (3-3) MG/ML [facility] GLYCOHEMOGLOBIN A1Con 2022 ADA RECOMMENDATION SEE BELOW Normal [facility] Comment on above: Result Comment: ADA RECOMMENDED LIMIT 4.0 - 6.0 ADA THERAPEUTIC TARGET < 7.0 ACTION SUGGESTED > 7.0 Performed By: #### A 1C #### [facility] [address] [place] [address] Dr. Hiwot Hernández Glucose [Mass/Vol] 117 mg/dL Normal [facility] Comment on above: Performed By: #### A 1C #### [facility] [address] [address] [address] Hiwot Hernández HbA1c (Bld) [Mass fraction] 5.7 % Normal 4.5-6.2 [facility] Comment on above: Performed By: #### A 1C #### [facility] [address] [place] [address] Dr. Hiwot Hernández CBC AUTO DIFFon 12-02-2022 BASO # 0.1 103/ul Normal 0.0-0.1 [facility] Comment on above: Performed By: #### D ATCBC #### [facility] [address] [place] [address] Dr. Hiwot Hernández Basophils/100 WBC (Bld) 0.6 % Normal 0.2-2.0 [facility] Comment on above: Performed By: #### D ATCBC #### [facility] [address] [place] [address] Dr. Hiwot Hernández EO # 0.2 103/ul Normal 0.0-0.7 [facility] Comment on above: Performed By: #### D ATCBC #### [facility] [address] [place] [address] Dr. Hiwot Hernández Eosinophils/100 WBC (Bld) 2.1 % Normal 0.9-7.0 [facility] Comment on above: Performed By: #### D ATCBC #### [facility] [address] [place] [address] Dr. Hiwot Hernández Erythrocyte distribution width (RBC) [Ratio] 12.1 % Normal 11.0-15.0 [facility] Comment on above: Performed By: #### D ATCBC #### [facility] [address] [place] [address] Dr. Hiwot Hernández Hematocrit (Bld) [Volume fraction] 38.9 % Normal 36.0-48.0 [facility] Comment on above: Performed By: #### D ATCBC #### [facility] [address] [place] [address] Dr. Hiwot Hernández Hemoglobin (Bld) [Mass/Vol] 14.0 g/dL Normal 12.0-16.0 [facility] Comment on above: Performed By: #### D ATCBC #### [facility] [address] [place] [address] Dr. Hiwot Hernández IG # 0.03 10e3/ul Normal 0.00-0.03 [facility] Comment on above: Performed By: #### D ATCBC #### [facility] [address] [place] [address] Dr. Hiwot Hernández IG % 0.3 % Normal 0.0-0.5 [facility] Comment on above: Performed By: #### D ATCBC #### [facility] [address] [place] [address] Dr. Hiwot Hernández LYMPH # 2.6 103/ul Normal 1.2-3.8 [facility] Comment on above: Performed By: #### D ATCBC #### [facility] [address] [place] [address] Dr. Hiwot Hernández Lymphocytes/100 WBC (Bld) 27.3 % Normal 20.5-60.0 [facility] Comment on above: Performed By: #### D ATCBC #### [facility] [address] [address] [address] Hiwot Hernández MCH (RBC) [Entitic mass] 30.6 pg Normal 26.7-34.0 [facility] Comment on above: Performed By: #### D ATCBC #### [facility] [address] [place] [address] Dr. Hiwot Hernández MCHC (RBC) [Mass/Vol] 36.0 g/dL Critically high 29.9-35.2 [facility] Comment on above: Performed By: #### D ATCBC #### [facility] [address] [place] [address] Dr. Hiwot Hernández MCV (RBC) [Entitic vol] 84.9 fL Normal 81.0-99.0 [facility] Comment on above: Performed By: #### D ATCBC #### [facility] [address] [place] [address] Dr. Hiwot Hernández MONO # 0.9 103/ul Critically high 0.3-0.8 [facility] Comment on above: Performed By: #### D ATCBC #### [facility] [address] [place] [address] Dr. Hiwot Hernández Monocytes/100 WBC (Bld) 9.5 % Normal 1.7-12.0 [facility] Comment on above: Performed By: #### D ATCBC #### [facility] [address] [place] [address] Dr. Hiwot Hernández NEUT # 5.7 103/ul Normal 1.4-6.5 [facility] Comment on above: Performed By: #### D ATCBC #### [facility] [address] [place] [address] Dr. Hiwot Hernández Neutrophils/100 WBC (Bld) 60.2 % Normal 43.0-75.0 [facility] Comment on above: Performed By: #### D ATCBC #### [facility] [address] [place] [address] Dr. Hiwot Hernández Platelet mean volume (Bld) [Entitic vol] 10.1 fL Normal 9.5-13.5 [facility] Comment on above: Performed By: #### D ATCBC #### [facility] [address] [place] [address] Dr. Hiwot Hernández PLT 247 103/ul Normal 150-450 [facility] Comment on above: Performed By: #### D ATCBC #### [facility] [address] [address] [address] Hiwot Hernández RBC 4.58 106/ul Normal 4.20-5.40 [facility] Comment on above: Performed By: #### D ATCBC #### [facility] [address] [address] [address] Hiwot Hernández WBC 9.4 103/ul Normal 4.0-11.0 [facility] Comment on above: Performed By: #### D ATCBC #### [facility] [address] [place] [address] Dr. Hiwot Hernández AIRAM- BMP WITH LIPIDon 2022 Anion gap [Moles/Vol] 13.9 mmol/L Normal [facility] Comment on above: Performed By: #### D ATBMP #### [facility] [address] [place] [address] Dr. Hiwot Hernández Calcium [Mass/Vol] 9.6 mg/dL Normal 8.5-10.1 [facility] Comment on above: Performed By: #### D ATBMP #### [facility] [address] [place] [address] Dr. Hiwot Hernández Chloride [Moles/Vol] 103 mmol/L Normal 98-107 [facility] Comment on above: Performed By: #### D ATBMP #### [facility] [address] [place] [address] Dr. Hiwot Hernández Cholesterol [Mass/Vol] 172 mg/dL Normal <=200 [facility] Comment on above: Performed By: #### D ATBMP #### [facility] [address] [place] [address] Dr. Hiwot Hernández Cholesterol in HDL [Mass/Vol] 63 mg/dL Critically high 40-60 [facility] Comment on above: Performed By: #### D ATBMP #### [facility] [address] [address] [address] Hiwot Hernández Cholesterol in LDL [Mass/Vol] 75.0 mg/dL Normal [facility] Comment on above: Performed By: #### D ATBMP #### [facility] [address] [address] [address] Hiwot Hernández CO2 [Moles/Vol] 28.8 mmol/L Normal 21.0-32.0 [facility] Comment on above: Performed By: #### D ATBMP #### [facility] [address] [address] [address] Hiwot Hernández Creatinine [Mass/Vol] 1.15 mg/dL Critically high 0.55-1.02 [facility] Comment on above: Performed By: #### D ATBMP #### [facility] [address] [address] [address] Hiwot Hernández EGFR-AF KUWAITI 56 mL/min/1.73m2 Critically low >=60 [facility] Comment on above: Performed By: #### D ATBMP #### [facility] [address] [address] [address] Hiwot Hernández EGFR-NON AF [place]I 46 mL/min/1.73m2 Critically low >=60 [facility] Comment on above: Performed By: #### D ATBMP #### [facility] [address] [address] [address] Hiwot Hernández Glucose [Mass/Vol] 129 mg/dL Critically high 74-106 [facility] Comment on above: Performed By: #### D ATBMP #### [facility] [address] [address] [address] Hiwot Hernández HDL NORMAL > or = 60 mg/dl - LO W CARDIOVASCULAR RISK <40 mg/dl - HIGH CARDIOVASCULAR RISK Normal [facility] Comment on above: Performed By: #### D ATBMP #### [facility] [address] [address] [address] Hiwot Hernández LDL CALC NORMAL SEE BELOW Normal [facility] Comment on above: Result Comment: <100 mg/dl OPTIMAL 100 - 129 mg/dl NEAR OR ABOVE OPTIMAL 130 - 159 mg/dl BORDERLINE HIGH 160 - 189 mg/dl HIGH >190 mg/dl VERY HIGH Performed By: #### D ATBMP #### [facility] [address] [address] [address] Hiwot Hernández Potassium [Moles/Vol] 3.7 mmol/L Normal 3.5-5.1 [facility] Comment on above: Performed By: #### D ATBMP #### [facility] [address] [address] [address] Hiwot Hernández Sodium [Moles/Vol] 142 mmol/L Normal 136-145 [facility] Comment on above: Performed By: #### D ATBMP #### [facility] [address] [place] [address] Dr. Hiwot Hernández Triglyceride [Mass/Vol] 170 mg/dL Critically high <=150 [facility] Comment on above: Performed By: #### D ATBMP #### [facility] [address] [address] [address] Hiwot Hernández Urea nitrogen [Mass/Vol] 28.0 mg/dL Critically high 7.0-18.0 [facility] Comment on above: Performed By: #### D ATBMP #### [facility] [address] [place] [address] Dr. Hiwot Hernández Urea nitrogen/Creatinine [Mass ratio] 24.3 mg/mg Normal [facility] Comment on above: Performed By: #### D ATBMP #### [facility] [address] [address] [address] Hiwot Hernández VLDL CALC 34.0 mg/dL Normal [facility] Comment on above: Performed By: #### D ATBMP #### [facility] [address] [address] [address] Hiwot Hernández FLUORO FOR SURGICAL PROCEDUR ESon 01-15-2018 FLUORO FOR SURGICAL PROCEDURES Fluoroscopy surgical procedure.HISTORY:Cervic al fusion.FINDINGS:43.8 seconds fluoroscopy time. 3 images.Procedure performed as imaging guidance for anterior lower cervical fusion.IMPRESSION: Fluoroscopy for surgical procedure as describedInterpreted by:JULIO Valladaresigned by:Tereso Lamar MD01/15/18inal result Normal [facility] Basic Metabolic Panelon 12-25 Anion gap 13 mmol/L Normal 7-13 [facility] Calcium 9.6 mg/dL Normal 8.6-10.2 [facility] Chloride 103 mmol/L Normal 98-107 [facility] CO2 27 mmol/L Normal 22-29 [facility] Creatinine 0.84 mg/dL Normal 0.50-0.90 [facility] eGFR (black) mL/min/{1.73_m2} Normal >60 [facility] Comment on above: Result Comment: >60 mL/min/1.73m2 EGFR, calc. for ages 18 and older using theMDRD formula (not corrected for weight), is valid for stablerenal function. eGFR (MDRD) mL/min/{1.73_m2} Normal >60 [facility] Comment on above: Result Comment: >60 mL/min/1.73m2 EGFR, calc. for ages 18 and older using theMDRD formula (not corrected for weight), is valid for stablerenal function. Glucose mass conc 100 mg/dL Normal 74-109 [facility] Potassium molar conc 4.4 mmol/L Normal 3.5-5.1 [facility] Sodium 143 mmol/L Normal 132-144 [facility] Urea nitrogen 23 mg/dL Normal 8-23 [facility] CBC With Platelet No Differe ntialon 01-12-2018 Erythrocyte distribution width Auto Ratio (RBC) 12.5 % Normal 11.5-14.5 [facility] Erythrocytes (RBC) 4.59 10*6/uL Normal 4.20-5.40 [facility] Hematocrit (HCT) 42.6 % Normal 37.0-47.0 [facility] Hemoglobin mass conc (Bld) 14.3 g/dL Normal 12.0-16.0 [facility] MCH 31.1 pg Normal 27.0-31.3 [facility] MCHC mass conc (RBC) 33.5 % Normal 33.0-37.0 [facility] MCV 92.7 fL Normal 82.0-100.0 [facility] Platelets 203 10*3/uL Normal 130-400 [facility] WBC (Leukocytes) 6.1 10*3/uL Normal 4.8-10.8 [facility] Culture, MRSA Screenon 01-12 Culture, MRSA Screen ORDERED BY: IRENE RENEE: Nares Nose COLLECTED: 01/12/18 13:53ANTIBIOTICS AT LAURA.: RECEIVED : 01/12/18 13:53Culture, MRSA Screen FINAL 01/13/18 13:51 No MRSA isolated Normal [facility] Culture, Urineon 01-12-2018 Culture, Urine ORDERED BY: [...] done. Normal [facility] Partial Thromboplastin Timeo n 01-12-2018 aPTT 25.5 s Normal 21.6-35.4 [facility] Comment on above: Result Comment: Hepa rin Therapeutic Range: 38.8 - 54.6 seconds. Prothrombin Timeon 201 8 INR Coag RelTime (PPP) 1.0 {INR} Normal [facility] Comment on above: Result Comment: Edison mmended [...] Normal 8.1-13.7 [facility] Type and Screen Capture 3 sc rn cellon 01-12-2018 Bilirubin (total) PATIENT: CARO Vicente LOC: [facility] BILL# : [id number] : 1945 SEX: FORDERED BY: VÍCTOR STEPHENS ORDERED : 01/12/2018 13:11 COLLECTED: 01/12/2018 14:00ORDER : [id number] RECEIVED : 01/12/2018 14:00 TEST NAME RESULT UNITS RANGES ABN FL STABORH Capture A POS FAntibody 3 Cell Scrn Captu NEG F ------ Normal [facility] Urinalysis, reflex to cultur cassi 01-12-2018 Bilirubin Ql (U) Negative Normal Negative [facility] Urine Reflexed to Culture YES Normal [facility] Urine, clarity CLOUDY Abnormal Clear [facility] Urine, color Yellow Normal Straw/Wilkin [facility] Urine, glucose presence Negative Normal Negative [facility] Urine, hemoglobin presence Negative Normal Negative [facility] Urine, ketones presence Negative Normal Negative [facility] Urine, leukocyte esterase presence LARGE Abnormal Negative [facility] Urine, nitrite presence Negative Normal Negative [facility] Urine, pH 6.5 [pH] Normal 5.0-9.0 [facility] Urine, protein presence Negative Normal Negative [facility] Urine, specific gravity 1.020 Normal 1.005-1.03 [facility] Urine, urobilinogen 0.2 {Tia'U}/dL Normal < 2.0 [facility] Urine Microscopicon 01-12-20 18 Urine Amorphous 1+ Normal [facility] Urine, bacteria in sediment Many Normal [facility] Urine, crystals in sediment 1+ Triple Phos Normal [facility] Urine, epithelial cells presence in sediment 5-10 Normal [facility] Urine, erythrocytes 0-2 Normal 0-2 [facility] Urine, leukocytes 3-5 Normal 0-5 [facility] Vital Signs Date Time Vital Sign Value Performing Clinician Facility 10-12-2024 08:46-0500 Body height 162.6 cm [employer] Work Phone: [facility] 10-12-2024 08:46-0500 Body mass index (BMI) [Ratio] 30.55 kg/m2 [employer] Phone: [facility] 10-12-2024 08:46-0500 Body temperature 97.39 [degF] [employer] Phone: [facility] 10-12-2024 08:46-0500 Body weight 80.74 kg [employer] Phone: [facility] 10-11-2024 13:50-0500 Body mass index (BMI) [Ratio] 30.5 kg/m2 [facility] 10-11-2024 13:50-0500 Diastolic blood pressure 80 mm[Hg] [facility] 10-11-2024 13:50-0500 Systolic blood pressure 130 mm[Hg] [facility] 10-11-2024 13:27-0500 Body height 162.56 cm [facility] 10-11-2024 13:27-0500 Body weight 80.73 kg [facility] 10-11-2024 13:27-0500 Heart rate 78 /min [facility] 10-11-2024 13:27-0500 Respiratory rate 12 /min [facility] 08-26-2024 15:47-0400 Body height 162.6 cm [employer] Work Phone: [facility] 08-26-2024 15:47-0400 Body mass index (BMI) [Ratio] 30.55 kg/m2 Phil Ryan DO Work Phone: [facility] 08-26-2024 15:47-0400 Body weight 80.74 kg Phil Ryan DO Work Phone: [facility] 05-10-2024 11:08-0400 Body height 162.56 cm [facility] 05-10-2024 11:08-0400 Body mass index (BMI) [Ratio] 30.4 kg/m2 [facility] 05-10-2024 11:08-0400 Body weight 80.34 kg [facility] 05-10-2024 11:08-0400 Diastolic blood pressure 84 mm[Hg] [facility] 05-10-2024 11:08-0400 Heart rate 69 /min [facility] 05-10-2024 11:08-0400 Respiratory rate 12 /min [facility] 05-10-2024 11:08-0400 Systolic blood pressure 135 mm[Hg] [facility] 10-28-2023 11:00-0500 Body height 162.56 cm Tereso Ball Other [facility] Other 10-28-2023 11:00-0500 Body mass index (BMI) [Ratio] 30.48 kg/m2 Tereso Ball Other [facility] Other 10-28-2023 11:00-0500 Body weight 80.56 kg Tereso Ball Other [facility] [employer] Other 10-28-2023 11:00-0500 Diastolic blood pressure 67 mm[Hg] Tereso Ball Other [facility] [employer] Other 10-28-2023 11:00-0500 Respiratory rate 12 /min Tereso Ball Other [facility] [employer] Other 10-28-2023 11:00-0500 Systolic blood pressure 127 mm[Hg] Tereso Ball Other [employer] Other 09-16-2023 14:15-0400 Body height 162.56 cm Tereso Ball Other [facility] Other 09-16-2023 14:15-0400 Body mass index (BMI) [Ratio] 30.07 kg/m2 Tereso Ball Other [facility] Other 09-16-2023 14:15-0400 Body weight 79.47 kg Tereso Ball Other [facility] Other 09-16-2023 14:15-0400 Diastolic blood pressure 81 mm[Hg] Tereso Ball Other [facility] Other 09-16-2023 14:15-0400 Respiratory rate 12 /min Tereso Ball Other [facility] Other 09-16-2023 14:15-0400 Systolic blood pressure 182 mm[Hg] Tereso Ball Other [facility] Other 08-25-2023 14:15-0400 Body height 162.56 cm Tereso Ball Other [facility] Other 08-25-2023 14:15-0400 Body mass index (BMI) [Ratio] 29.83 kg/m2 Tereso Ball Other [facility] Other 08-25-2023 14:15-0400 Body weight 78.84 kg Tereso Ball Other [facility] [employer] Other 08-25-2023 14:15-0400 Diastolic blood pressure 83 mm[Hg] Tereso Ball Other [facility] Other 08-25-2023 14:15-0400 Respiratory rate 12 /min Tereso Ball Other [facility] Other 08-25-2023 14:15-0400 Systolic blood pressure 153 mm[Hg] Tereso Ball Other [facility] Other 08-12-2023 09:30-0400 Body height 162.56 cm Tereso Ball Other [facility] Other 08-12-2023 09:30-0400 Body mass index (BMI) [Ratio] 29.83 kg/m2 Tereso Ball Other [facility] Other 08-12-2023 09:30-0400 Body weight 78.84 kg Tereso Ball Other [facility] Other 08-12-2023 09:30-0400 Diastolic blood pressure 99 mm[Hg] Tereso Ball Other [facility] Other 08-12-2023 09:30-0400 Respiratory rate 12 /min Tereso Ball Other [employer] Other 08-12-2023 09:30-0400 Systolic blood pressure 174 mm[Hg] Tereso Ball Other [facility] Other 02-19-2023 11:30-0400 Body height 162.56 cm Tereso Ball Other [facility] Other 02-19-2023 11:30-0400 Body mass index (BMI) [Ratio] 30.24 kg/m2 Tereso Ball Other [facility] Other 02-19-2023 11:30-0400 Body weight 79.92 kg Tereso Ball Other [facility] Other 02-19-2023 11:30-0400 Diastolic blood pressure 72 mm[Hg] Tereso Ball Other [facility] [employer] Other 02-19-2023 11:30-0400 Respiratory rate 12 /min Tereso Haider Other [facility] Other 02-19-2023 11:30-0400 Systolic blood pressure 118 mm[Hg] Tereso Haider Other [employer] Other Encounters Encounter Date Encounter Type Care Provider Facility Start: 10-20-2024 End: 10-20-2024 Telephone encounter Philraquel Ryan DO Work Phone: [facility] Comment on above: OT Start: 10-12-2024 End: 10-12-2024 Patient encounter procedure Phil Ryan DO Work Phone: [facility] Comment on above: S/P carpal tunnel re lease (Primary Dx) Start: 10-12-2024 End: 10-12-2024 ambulatory PHIL A WICHO Not Available Start: 10-11-2024 End: 10-11-2024 ambulatory [facility] Work Phone: Start: 10-11-2024 End: 10-11-2024 Patient encounter procedure [facility] Work Phone: Start: 09-21-2024 End: 09-21-2024 [employer]amboo [employer]sheet Geenanadeen Godwinchen OT Work Phone: [facility] Start: 09-21-2024 End: 09-21-2024 [employer]sheet Geenanadeen Vasquez OT Work Phone: [facility] Start: 09-21-2024 End: 09-21-2024 ambulatory Geena Vasquez OT Work Phone: [facility] Comment on above: Carpal tunnel syndro me of right wrist (Primary Dx); Trigger finger, right middle finger Start: 09-17-2024 End: 09-17-2024 Bamboo [employer]sheet Geenanadeen Godwinchen OT Work Phone: [facility] Start: 09-17-2024 End: 09-17-2024 [employer] Geena Vasquez OT Work Phone: [facility] Start: 09-17-2024 End: 09-17-2024 ambulatory Geena Vasquez OT Work Phone: [facility] Comment on above: Carpal tunnel syndro me of right wrist (Primary Dx); Left hand pain; Left wrist pain; Trigger finger, right middle finger Start: 09-07-2024 End: 09-07-2024 [employer] Geena Vasquez OT Work Phone: [facility] Start: 09-07-2024 End: 09-07-2024 [employer] Geena Vasquez OT Work Phone: [facility] Start: 09-07-2024 End: 09-07-2024 ambulatory Geena Vasquez OT Work Phone: [facility] Comment on above: Carpal tunnel syndro me of right wrist (Primary Dx); Trigger finger, right middle finger Start: 09-03-2024 End: 09-03-2024 [employer] Geena Vasquez OT Work Phone: [facility] Start: 09-03-2024 End: 09-03-2024 [employer] Geena Vasquez OT Work Phone: [facility] Start: 09-03-2024 End: 09-03-2024 ambulatory Geena Vasquez OT Work Phone: [facility] Comment on above: Left hand pain (Prim lu Dx); Trigger finger, right middle finger; Carpal tunnel syndrome of right wrist Start: 08-26-2024 End: 08-26-2024 Patient encounter procedure Phil Ryan DO Work Phone: [facility] Comment on above: Left hand pain Start: 08-26-2024 End: 08-26-2024 ambulatory PHIL RYAN Not Available Start: 08-26-2024 End: 08-26-2024 Bamboo flowsjanay Ryan DO Work Phone: [facility] Start: 08-26-2024 End: 08-26-2024 Bamboo flowsheet Phil Ryan DO Work Phone: [facility] Start: 07-27-2024 End: 07-27-2024 ambulatory Grace L Vijay Facility:[facility] [place] [facility] Start: 07-20-2024 End: 07-20-2024 ambulatory PHIL RYAN Not Available Start: 06-21-2024 ambulatory Grace Vijay Facility:[facility] [place] Start: 06-08-2024 End: 06-08-2024 ambulatory GEENA VAQSUEZ Not Available Start: 05-18-2024 End: 05-18-2024 ambulatory GEENA VASQUEZ Not Available Start: 05-10-2024 End: 05-10-2024 ambulatory [facility] Work Phone: Start: 05-10-2024 End: 05-10-2024 Patient encounter procedure [facility] Work Phone: Start: 05-04-2024 End: 05-04-2024 ambulatory GEENA VASQUEZ Not Available Start: 04-27-2024 End: 04-27-2024 ambulatory GEENA VASQUEZ Not Available Start: 04-01-2024 End: 04-01-2024 ambulatory PHIL RYAN Not Available Start: 03-11-2024 End: 03-11-2024 ambulatory PHIL RYAN Not Available Start: 03-05-2024 End: 03-05-2024 ambulatory GEENA VASQUEZ Not Available Start: 03-02-2024 End: 03-02-2024 ambulatory GEENA VASQUEZ Not Available Start: 02-27-2024 End: 02-27-2024 ambulatory GEENA VASQUEZ Not Available Start: 02-24-2024 End: 02-24-2024 ambulatory GEENA VASQUEZ Not Available Start: 02-20-2024 End: 02-20-2024 ambulatory GEENA VASQUEZ Not Available Start: 01-20-2024 End: 01-20-2024 ambulatory PHIL RYAN Not Available Start: 01-05-2024 End: 01-05-2024 ambulatory Tereso Ball Other [employer] Other Start: 01-05-2024 Telephone encounter Tereso Ball [facility] Start: 01-04-2024 Chart abstracting Phil rincon DO Work Phone: [facility] Start: 10-28-2023 End: 10-28-2023 ambulatory Tereso Ball Other [employer] Other Start: 10-28-2023 Patient encounter procedure Tereso Ball [facility] Start: 10-09-2023 End: 10-09-2023 ambulatory Tereso Ball Other [employer] Other Start: 10-09-2023 Telephone encounter Tereso Ball [facility] Start: 09-23-2023 End: 09-23-2023 ambulatory Tereso Ball Other [employer] Other Start: 09-23-2023 Telephone encounter Tereso Ball [facility] Start: 09-16-2023 End: 09-16-2023 ambulatory Tereso Ball Other [employer] Other Start: 09-16-2023 Office outpatient vi sit 15 minutes Tereso Ball [facility] Start: 08-26-2023 End: 08-26-2023 ambulatory Tereso Ball Other [employer] Other Start: 08-26-2023 Telephone encounter Tereso Ball [facility] Start: 08-25-2023 End: 08-25-2023 ambulatory Tereso Ball Other [facility] [employer] Other Start: 08-25-2023 Office outpatient vi sit 15 minutes Tereso Ball [facility] Start: 08-25-2023 Telephone encounter Tereso Ball [facility] Start: 08-12-2023 End: 08-12-2023 ambulatory Tereso Ball Other [employer] Other Start: 08-12-2023 Office outpatient vi sit 15 minutes Tereso Haider [facility] Start: 08-09-2023 End: 08-09-2023 ambulatory Tereso Haider Other [facility] Other Start: 08-09-2023 Telephone encounter Tereso Haider [facility] Start: 07-29-2023 End: 07-29-2023 ambulatory Tereso Haider Other [facility] Other Start: 07-29-2023 Telephone encounter Tereso Haider [facility] Start: 07-28-2023 End: 07-28-2023 ambulatory Tereso Haider Other [facility] [employer] Other Start: 07-28-2023 Telephone encounter Tereso Haider [facility] Start: 05-19-2023 End: 05-19-2023 ambulatory Tereso Haider Other [facility] Other Start: 05-19-2023 Encounter by compute r link Tereso Haider [facility] Start: 05-13-2023 End: 05-13-2023 ambulatory Tereso Haider Other [facility] Other Start: 05-13-2023 Telephone encounter Tereso Haider [facility] Start: 02-19-2023 Office outpatient vi sit 25 minutes Tereso Haider [facility] Start: 02-19-2023 End: 02-20-[address] TERESO HAIDER [facility] Other Start: 12-02-2022 End: 12-03-2022 ambulatory NONE LISTED REQUEST Facility: Start: 09-24-2022 Adult health examination Tereso Haider Other [employer] Other Start: 01-15-2018 End: 01-16-2018 Evaluation and management of inpatient [facility] Start: 01-12-2018 End: 01-17-2018 Ambulatory [facility] H[facility] Procedures Date Procedure Procedure Detail Performing Clinician Start: 08-26-2024 HAND/UPPER EXTREMITY ARTHROCENTESIS Phil Ryan DO Work Phone: Start: 01-16-2018 INITIATE OXYGEN THERAPY PROTOCOL ANGELO VÍCTOR Start: 01-16-2018 PULSE OXIMETRY, CONTINUOUS ANGELO VÍCTOR Start: 01-16-2018 PULSE OXIMETRY, CONTINUOUS ANGELO VÍCTOR Start: 01-16-2018 INTAKE AND OUTPUT ANGELO VÍCTOR Start: 01-16-2018 PULSE OXIMETRY, CONTINUOUS ANGELO VÍCTOR Start: 01-15-2018 PULSE OXIMETRY, CONTINUOUS ANGELO VÍCTOR Start: 01-15-2018 DISCHARGE PATIENT ANGELO VÍCTOR Start: 01-15-2018 DIET GENERAL ANGELO VÍCTOR Start: 01-15-2018 PULSE OXIMETRY, CONTINUOUS ANGELO VÍCTOR Start: 01-15-2018 ACTIVITY TOLERATED ANGELO VÍCTOR Start: 01-15-2018 AMBULATE PATIENT ANGELO VÍCTOR Start: 01-15-2018 ELEVATE HOB ANGELO VÍCTOR Start: 01-15-2018 INITIATE OXYGEN THERAPY PROTOCOL ANGELO VÍCTOR Start: 01-15-2018 INTAKE AND OUTPUT ANGELO VÍCTOR Start: 01-15-2018 NEURO/VASCULAR CHECKS ANGELO VÍCTOR Start: 01-15-2018 NURSING COMMUNICATION ANGELO VÍCTOR Start: 01-15-2018 PLACE CERVICAL COLLAR ANGELO VÍCTOR Start: 01-15-2018 PLACE INTERMITTENT PNEUMATIC [...] ANGELO VÍCTOR Start: 01-12-2018 BASIC METABOLIC PANEL ANGELO VÍCTOR Start: 01-12-2018 CBC ANGELO VÍCTOR Start: 01-12-2018 Microscopic urinalysis ANGELO VÍCTOR Start: 01-12-2018 PROTIME-INR ANGELO VÍCTOR Start: 01-12-2018 URINE CULTURE ANGELO VÍCTOR Start: 01-12-2018 URINE RT REFLEX TO CULTURE ANGELO VÍCTOR Start: 01-12-2018 TYPE AND SCREEN ANGELO VÍCTOR Start: 01-12-2018 MRSA SCREENING CULTURE ONLY ANGELO VÍCTOR Start: 01-12-2018 EKG 12-LEAD ANGELO VÍCTOR Start: 11-27-2016 Screening for malignant neoplasm of colon Tereso Haider Other Start: 11-27-2016 Screening for osteoporosis Tereso Haider Other Start: 11-27-2016 Screening mammography Tereso Haider Other Start: 10-27-2015 Screening for malignant neoplasm of colon Tereso Haider Other Depression screening Wil Haider Other History of decompres scott of median nerve S/P carpal tunnel release Phil Ryan DO Work Phone: Screening for malign ant neoplasm of breast [facility] [employer] Other Plan of Treatment Date Care Activity Detail Author Start: 10-28-2024 End: 10-28-2024 Patient encounter procedure 10/28/2024 11:00 AM EST Office Visit [facility] [address] [facility] [address] [place] [phone] Rebel Auguste MD [address] [place] [address] [facility] Start: 10-11-2024 End: 10-11-2024 Patient encounter procedure 10/11/2024 10:00 AM EST Office Visit [facility] [address] [facility] [address] [place] [id number] Rebel Augutse MD [address] [place] [address] [facility] Start: 10-07-2024 End: 10-07-2024 Patient encounter procedure 10/07/2024 1:00 PM EST Office Visit [facility] [address] [place] [address] Brown, Phil A, DO [address] [place] [address] [facility] Start: 10-05-2024 End: 10-05-2024 ambulatory 10/05/2024 10:00 AM EST Treatment [facility] [address] [place] [address] Genea Vasquez, OT [address] [place] [address] [facility] Start: 09-21-2024 End: 09-21-2024 ambulatory [facility] Comment on above: Arrived Start: 09-17-2024 End: 09-17-2024 ambulatory [facility] Comment on above: Arrived Start: 09-07-2024 End: 09-07-2024 ambulatory [facility] Comment on above: Arrived Start: 09-03-2024 End: 09-03-2024 ambulatory 09/03/2024 9:00 AM EDT Evaluation [facility] [address] [place] [address] Geena Vasquez, OT [address] [place] [address] Left hand pain [facility] Comment on above: Left hand pain Start: 08-26-2024 End: 08-26-2024 Patient encounter procedure 08/26/2024 3:15 PM EDT Office Visit [facility] [address] [facility] [phone] Phil Ryan, DO [address] [place] [address] Arrived [facility] Comment on above: Arrived Start: 07-25-2024 Influenza vaccination Influenza Vacc ine (#1) [facility] Start: 07-25-2023 Influenza vaccination Influenza Vacc ine (#1) [facility] XR Foot - bilateral 3 Views [facility] XR Knee - bilateral 4 Views [facility] Immunizations Immunization Date Immunization Notes Care Provider [place] 10-28-2023 influenza virus vaccine, unspecified formulation [facility] 10-28-2023 influenza, high dose seasonal, preservative-free Tereso Haider Other [facility] Other 09-24-2022 influenza virus vaccine, split virus (incl. purified surface antigen) Tereso Haider Other [facility] [employer] Other 09-24-2022 influenza virus vaccine, unspecified formulation Phil Ryan DO Work Phone: [facility] 08-21-2021 COVID-19 Vaccine Pfizer - Documentation Purposes Only Tereso Haider Other [facility] 08-21-2021 influenza virus vaccine, split virus (incl. purified surface antigen) Tereso Haider Other [employer] Other 08-21-2021 influenza virus vaccine, unspecified formulation [facility] 01-21-2021 COVID-19 Vaccine Pfizer - Documentation Purposes Only Tereso Haider Other [facility] 12-31-2020 COVID-19 Vaccine Pfizer - Documentation Purposes Only Tereso Haider Other [facility] 09-14-2020 influenza virus vaccine, split virus (incl. purified surface antigen) Tereso Haider Other [facility] [employer] Other 09-14-2020 influenza virus vaccine, unspecified formulation [facility] 04-22-2019 pneumococcal polysaccharide vaccine, 23 valent Tereso Haider Other [facility] 01-18-2019 influenza virus vaccine, split virus (incl. purified surface antigen) Tereso Haider Other [facility] 01-18-2019 influenza virus vaccine, unspecified formulation [facility] 12-17-2016 pneumococcal polysaccharide vaccine, 23 valent Tereso Haider Other [facility] 11-27-2016 pneumococcal conjugate vaccine, 13 valent Tereso Haider Other [facility] 11-27-2016 pneumococcal Conjugate, unspecified formulation; Translations: [Need for prophylactic vaccination against Streptococcus pneumoniae (pneumococcus)] Tereso Haider Other [facility] 09-30-2012 diphtheria, tetanus toxoids and acellular pertussis vaccine, unspecified formulation Tereso Haider Other [facility] 09-02-2012 tetanus and diphtheria toxoids, adsorbed, preservative free, for adult use (5 Lf of tetanus toxoid and 2 Lf of diphtheria toxoid) Tereso Haider Other [facility] NEGATED: Highlighted row has not occurred! 7 influenza, seasonal, injectable Patient Objection Tereso Haider Other [facility] Other Payers Date Payer Category Payer Private Health Insurance [employer] Md mber [id number] 2022 Unknown AAR AAR [id number] 2022-Present [address] [place] [address] [id number] 2017 Medicare [id number] 2012 Medicare [id number] 1959 Medicare [id number] 2.16.840.1.630599.19 1959 Self-pay [id number] 1959 Unknown [id number] 2.16.840.1.690865.19 1947 Unknown [id number] 2.16.840.1.452219.3.579.2 .593 1947 Unknown [id number] 2.16.840.1.345466.3.579.2 .727 1947 Unknown [id number] 2.16.840.1.083670.3.579.2 .1259 1947 Unknown [id number] 2.16.840.1.284403.3.579.2 .1259 1947 Unknown [id number] 2.16.840.1.905367.3.579.2 .1259 1947 Unknown [id number] 2.16.840.1.479542.3.579.2 .1259 1947 Unknown [id number] 2.16.840.1.672689.3.579.2 .1259 1947 Unknown [id number] 2.16.840.1.462806.3.579.2 .1259 1947 Unknown [id number] 2.16.840.1.098598.3.579.2 .1259 1947 Unknown [id number] 2.16.840.1.457562.3.579.2 .1259 1947 Unknown [id number] 2.16.840.1.629493.3.579.2 .1259 1947 Unknown [id number] 2.16.840.1.544674.3.579.2 .1259 1947 Unknown [id number] 2.16.840.1.345032.3.579.2 .1259 1947 Unknown [id number] 2.16.840.1.706380.3.579.2 .1259 1947 Unknown [id number] 2.16.840.1.632431.3.579.2 .1258 1947 Unknown [id number] 2.16.840.1.134713.3.579.2 .9 1947 Unknown [id number] 2.16.840.1.001582.3.579.2 .1258 1947 Unknown [id number] 2.16.840.1.271048.3.579.2 .1258 1947 Unknown [id number] 2.16.840.1.711604.3.579.2 .1258 1947 Unknown [id number] 2.16.840.1.713134.3.579.2 .1258 1947 Unknown [id number] 2.16.840.1.889924.3.579.2 .1258 1947 Unknown [id number] 2.16.840.1.899762.3.579.2 .1258 1947 Unknown [id number] 2.16.840.1.180416.3.579.2 .1259 Self-pay [id number] Unknown [id number] 2.16.840.1.157562.3.579.2 .593 Unknown [employer] SINGER/GISSELLE [id number] Social History Date Type Detail Facility Unknown if ever smoked [facility] Start: 07-01-2023 End: 10-12-2024 Sex Assigned At [facility] Start: 05-29-2023 End: 07-20-2024 Tobacco smoking status ALIS Ex-smoker [facility] Start: 04-24-1966 End: 07-28-2002 History of tobacco use Current smoker [facility] Start: 04-24-1966 End: 07-28-2002 History of tobacco use Cigarette Smoker [facility] Start: 05-29-2023 End: 10-12-2024 Cigarettes smoked current (pack per day) - Reported 0.3 [facility] Start: 05-29-2023 End: 07-20-2024 Tobacco use and exposure Smokeless tobacco non-user [facility] Start: 07-01-2023 Alcohol intake Current drinker of alcohol (finding) [facility] Start: 05-29-2023 Tobacco Comment Smoked 3 or 4 cigarettes a day, quit for [address] [facility] Start: 1945 Sex Assigned At Female [facility] Start: 05-22-2023 Gender identity Identifies as female gender (finding) [facility] Start: 05-22-2023 Sexual orientation Heterosexual (finding) [facility] Start: 07-20-2024 End: 10-12-2024 Alcoholic beverage intake Ex-drinker (finding) [facility] Start: 03-11-2024 Alcohol Comment No alcohol in [address] [facility] Start: 10-11-2024 Sex Female (finding) [facility] Clinical Notes 02-19-2023 to 10-20-2024 Telephone Encounter - Malia Almanza - 10/20/2024 8:44 AM ESTTelephone Encounter - Malia Almanza - 10/20/2024 8:44 AM Ashley Ryan DO - 10/12/2024 8:45 AM Rafael Rankin - 08/26/2024 3:15 PM EDT Note Date & Type Note Facility 10-20-2024 Telephone encount er Note Billie called and was requesting [facility]. Her script was up and she JAB would order more if needed. RMF trigger/ R CTR 08/16/24 TSCNCO. [facility] 10-20-2024 Miscellaneous Notes Formattin g of this note might be different from the original. Billie called and was requesting another [facility]. Her script was up and she JAB would order more if needed. RMF trigger/ R CTR 08/16/24 TSCNCO. documented in this encounter [facility] 10-12-2024 History of Presen t illness Narrative Images from the original note were not included. @TILA@ Billie Haider is a 79 y.o. female who presents for No chief complaint on file. HPI: History of Present Illness The patient is an 8-week status post trigger digit release to the right middle finger with right carpal tunnel release. The surgery was performed on 08/16/2024. She reports that her left middle finger, which was previously injected on 08/26/2024, has been free of pain since the procedure. Her left hand has regained full functionality. Currently, she is undergoing rehabilitation for her right hand, which is showing signs of improvement. She had a brief interruption in her rehab due to a cold but plans to resume shortly. She notes a significant improvement in her right hand over the past few days. She is actively working on improving the condition of her right middle finger, which, while better than before, still affects her dexterity. She recalls an incident years ago where she injured her finger while playing volleyball. She mentions that the numbness in her right hand has completely disappeared. She will be attending the [facility] [employer] football game this weekend. SUBJECTIVE: MEDICATIONS: Current Outpatient Medications Medication Instructions glucosamine-chondroitin 500-400 MG tablet 1 tablet, Oral, 3 times daily lisinopril-hydroCHLOROthiazide 20-12.5 MG tablet lisinopril 10 mg, Oral, Every 24 hours Multiple Vitamin (multivitamin) tablet 1 tablet, Oral, Daily zolpidem (AMBIEN) 2.5 mg, Oral, Daily PRN ALLERGIES: No Known Allergies SURGICAL HISTORY: Past Surgical History: Procedure Laterality Date CARPAL TUNNEL RELEASE Left 03/22/2024 CARPAL TUNNEL RELEASE Right 08/16/2024 JAB CHOLECYSTECTOMY 1993 HYSTERECTOMY 1990 LUMBAR DISCECTOMY OTHER SURGICAL HISTORY 01/15/2018 ACDF TRIGGER FINGER RELEASE Right 08/16/2024 REVIEW OF SYMPTOMS: The review of systems, history and current medications list are all reviewed today. OBJECTIVE: Visit Vitals OB Status Unknown Smoking Status Former Physical Exam RIGHT HAND Incisions benign and well healed. Makes full fist without triggering. Stiffness at PIP joint of RMF with slight flexion contracture. SILT all digits, good diesel engineer strength. Hand well perfused Results ASSESSMENT AND PLAN: I reviewed the history, physical exam, diagnostic studies, and diagnosis with the patient. Assessment & Plan 1. Post-surgical status of right middle finger trigger digit release and right carpal tunnel release She reports improvement and is advised to continue her rehabilitation exercises. An oval-8 splint was tried but did not significantly straighten the finger. Continued treatment with her therapist Geena is recommended to maximize recovery. Follow up prn. There are no diagnoses linked to this encounter. Phil Ryan D.O. Attestation This note was created using voice recognition through [employer]. documented in this encounter [facility] 09-21-2024 History of Presen t illness Narrative Occupational Therapy Occupational Therapy Treatment Visit Patient Name: Billie Haider Today's Date: 09/21/2024 Linked Episodes Type: Episode: Status: Noted: Resolved: Last update: Updated by: Occupational Therapy R CTR/ TFR Active 09/03/2024 09/21/2024 3:21 PM Geena Vasquez OT Comments: Visit number: 02/27 Timed Code Treatment minutes: 60 Total Treatment Time: 60 Subjective Pain: 0/10. You know its feeling a lot better. Still don't have the dexterity in it I would like but it is coming along . Overall progress: improving Objective: 30' - MT including STM/DTM and scar massage along the wrist with focus on the at the CT and and the trigger finger of MF. AAROM/ PROM to all digits and wrist planes 1x20. 30' Fluido complete x10 minutes for tissue preconditioning/ supervised BLAYNE. Encouraged digit opposition/ full composite flexion in heat with good toleration. Extension stretch of both wrist and fingers complete. US complete to both incisions 1.3 mhz x5 minutes to maximize healing.IDN complete to PIP joint with good toleration. Reviewed HEP with patient verbalizing understanding. Also recommended heat in the mornings to R hand prior to completion of HEP with patient verbalizing understanding. Full ROM achieved at end of session. Treatment: Manual: STM/DTM for scar/edema management and ROM Therapeutic Exercise: light strengthening Therapeutic Activity: Modalities:IDN, US Neuro Re-Ed: Assessment/Plan Pt tolerated session well. No pain reported in hands at end of session. Full ROM of finger and wrist achieved through stretching and joint blocking exercises. OT remains necessary to maximize R hand function in order to return to all I/ADL tasks at discharge. documented in this encounter [facility] 09-17-2024 History of Presen t illness Narrative Occupational Therapy Occupational Therapy Treatment Visit Patient Name: Billie Haider Today's Date: 09/17/2024 Linked Episodes Type: Episode: Status: Noted: Resolved: Last update: Updated by: Occupational Therapy R CTR/ TFR Active 09/03/2024 09/17/2024 9:07 AM Geena Vasquez OT Comments: Visit number: 01/27 Timed Code Treatment minutes: 60 Total Treatment Time: 60 Subjective Pain: 01/31. well it was going ok but here lately its been very very sore right at the incision. It's like something is stabbing it when I write . Overall progress: improving Objective: 30' - MT including STM/DTM and scar massage along the wrist with focus on the at the CT and and the trigger finger of MF. AAROM/ PROM to all digits and wrist planes 1x20. 30' Fluido complete x10 minutes for tissue preconditioning/ supervised BLAYNE. Encouraged digit opposition/ full composite flexion in heat with good toleration. Extension stretch of both wrist and fingers complete. US complete to both incisions 1.3 mhz x5 minutes to maximize healing.IDN complete to sensitive spot with good toleration. Kineseotape applied to palm Reviewed HEP with patient verbalizing understanding. Full ROM achieved at end of session. Treatment: Manual: STM/DTM for scar/edema management and ROM Therapeutic Exercise: light strengthening Therapeutic Activity: Modalities:IDN, US Neuro Re-Ed: Assessment/Plan Pt tolerated session well. No pain reported in hands at end of session. Full ROM of finger and wrist achieved through stretching and joint blocking exercises. OT remains necessary to maximize R hand function in order to return to all I/ADL tasks at discharge. documented in this encounter [facility] 09-07-2024 History of Presen t illness Narrative Occupational Therapy Occupational Therapy Treatment Visit Patient Name: Billie Haider Today's Date: 09/07/2024 Linked Episodes Type: Episode: Status: Noted: Resolved: Last update: Updated by: Occupational Therapy R CTR/ TFR Active 09/03/2024 09/07/2024 10:28 AM Geena Vasquez OT Comments: Visit number: 12/30 Timed Code Treatment minutes: 60 Total Treatment Time: 60 Subjective Pain: 01/03. It was sore following last session but it is moving a lot better. It goes straight now. Still have some swelling in my palm. The vitamin E has been helping as well . Overall progress: improving Objective: 30' - MT including STM/DTM and scar massage along the wrist with focus on the at the CT and and the trigger finger of MF. AAROM/ PROM to all digits and wrist planes 1x20. 30' Fluido complete x10 minutes for tissue preconditioning/ supervised BLAYNE. Encouraged digit opposition/ full composite flexion in heat with good toleration. Extension stretch of both wrist and fingers complete. US complete to both incisions 1.3 mhz x5 minutes to maximize healing. Reviewed HEP with patient verbalizing understanding. Full ROM achieved at end of session. Treatment: Manual: STM/DTM for scar/edema management and ROM Therapeutic Exercise: light strengthening Therapeutic Activity: Modalities:IDN, US Neuro Re-Ed: Assessment/Plan Pt tolerated session well. No pain reported in hands at end of session. Full ROM of finger and wrist achieved through stretching and joint blocking exercises. OT remains necessary to maximize R hand function in order to return to all I/ADL tasks at discharge. documented in this encounter [facility] 09-03-2024 History of Presen t illness Narrative Occupational Therapy Occupational Therapy Evaluation Visit Patient Name: Billie Haider Today's Date: 09/03/2024 Linked Episodes Type: Episode: Status: Noted: Resolved: Last update: Updated by: Occupational Therapy L carpal tunnel release Active 04/27/2024 09/03/2024 11:00 AM Geena Vasquez OT Comments: Visit number: 1 Subjective Interim History: 79 y/o right hand dominant female presents s/p R CTR and TFR of the RMF on 08/16/2024. Pt reports general stiffness and pain following surgery. N/T are gone and so is the triggering. My finger isn't quite straight yet but that is about it . Pain: Pain up to a 7/10 at worst and 1/10 at rest. Pain most associated when pressure is applied to both incisions. Imaging: none Prior Level of Function: I with all self-care and functional mobility. 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 Precautions: CTR/ and TF release surgery 08/16/24 Objective PRWHE Pain Score: 23/50 PRWHE Functional Score: 36/100 Hand/Wrist Musculoskeletal Exam Inspection Right Edema: mild Deformity: none Hand - prior incision: trigger Trigger incision: middle Wrist - prior incision: carpal tunnel Palpation Right Middle tenderness to palpation: A1 kaleb Wrist tenderness to palpation: carpal canal Palpation additional comments: Sensitive only at incisions Range of Motion Right Hand Right hand range of motion is normal. Middle proximal interphalangeal joint range of motion: -10 degree extension. Right Wrist Right wrist range of motion is normal. Strength Right Wrist Extension: 4+/5. Flexion: 4+/5. Radial deviation: 4+/5. Ulnar deviation: 4+/5. Pronation: 4+/5. Supination: 4+/5. Strength additional comments: R diesel engineer strength: 30# LP: 11# L diesel engineer strength: 40# LP: 10# Treatment: Education: HEP education with demonstration, Educated on Eval Findings and POC Manual Therapy: Passive ROM, Joint mobilization, Soft Tissue Mobilization, Myofascial Release, Muscle Energy Technique, Neural Mobilization, Myofascial Cupping, Dry Needling, IASTM, and Scar mobilization Therapeutic Exercise: Strength, Endurance, Flexibility, ROM, and HEP Therapeutic Activity: Exercises to improve dynamic activities, functional tasks, functional mobility to return to prior activity level Neuromuscular re-education: Muscle Facilitation and Dynamic Stability Modalities: Heat, Ice, Electrical Stimulation, Ultrasound, Iontophoresis, and Fluidotherapy Today: US complete x10 minute for scar tissue management. 1.3 mgz entire R hand. STM/DTM to both incisions as well as along the median nerve distribution. Discussed proper technique for scar massage. Recommended vitamin E. HEP received with patient verbalizing understanding. Assessment/Plan Short Term Goals: Pt will be independent with home exercise program for light strengthening, pain/scar management at discharge. Longterm Goals: PRWHE Pain Score < 5/50 ( IE: 23/50) PRWHE Functional Score < 10/100( IE: 36/100) Increase R wrist strength to 5/5 in order to complete all I/ADL tasks at discharge. Pt to increase diesel engineer strength by 10# and LP by 2# pain free at discharge. (IE: 30# LP: 11# ) Pt will be able to use RUE in light daily activities. Pt will report normalized sensitization to the incision at discharge. Pt will have full ROM of R MF at discharge. ( -10 degrees PIP extension on IE). Pt will benefit from skilled OT to address the above impairments for 1-2x/week for 4-6 weeks. I hereby deem this POC medically necessary. Please sign below. Date: documented in this encounter [facility] 08-26-2024 History of Presen t illness Narrative Associated Order(s): Hand / UE Inj/Asp Post-Procedure Diagnose(s): Left hand pain Hand / UE Inj/Asp for trigger finger on 08/26/2024 4:30 PM Indications: pain Details: 25 G needle Medications: 0.5 mL betamethasone acetate-betamethasone sodium phosphate 6 (3-3) MG/ML Images from the original note were not included. @[email or web address]@ Billie Cinthia Haider is a 79 y.o. female who presents for Post-op of the Right Middle Finger HPI: History of Present Illness The patient is 10 days s/p right carpal tunnel release and trigger digit release to the [facility] (DOS 08/16/2024). She reports that her finger is functioning well, although with some stiffness. She experiences discomfort from the stitches, which she describes as tight. Additionally, she has noticed mild skin irritation caused by the bandage. Despite these issues, she is able to form a fist and finds relief from applying ice to the area. She is considering hand therapy once the wound has healed. She also mentions a trigger finger on her other hand. She confirms that she does not have diabetes. SUBJECTIVE: MEDICATIONS: Current Outpatient Medications Medication Instructions glucosamine-chondroitin 500-400 MG tablet 1 tablet, Oral, 3 times daily lisinopril-hydroCHLOROthiazide 20-12.5 MG tablet lisinopril 10 mg, Oral, Every 24 hours Multiple Vitamin (multivitamin) tablet 1 tablet, Oral, Daily zolpidem (AMBIEN) 2.5 mg, Oral, Daily PRN ALLERGIES: No Known Allergies SURGICAL HISTORY: Past Surgical History: Procedure Laterality Date CARPAL TUNNEL RELEASE Left 03/22/2024 CARPAL TUNNEL RELEASE Right 08/16/2024 JAB CHOLECYSTECTOMY 1993 HYSTERECTOMY 1990 LUMBAR DISCECTOMY OTHER SURGICAL HISTORY 01/15/2018 ACDF TRIGGER FINGER RELEASE Right 08/16/2024 REVIEW OF SYMPTOMS: The review of systems, history and current medications list are all reviewed today. OBJECTIVE: Visit Vitals Ht 5' 4 Wt 178 lb BMI 30.55 kg/m OB Status Unknown Smoking Status Former BSA 1.91 m Physical Exam RIGHT HAND Incisions healing well. No drainage. Mild swelling. No erythema. Makes fist with no triggering. Hand well perfused. Sensation intact radial and ulnar borders middle finger. Results ASSESSMENT AND PLAN: I reviewed the history, physical exam, diagnostic studies, and diagnosis with the patient. Assessment & Plan 1. Post-surgical status of right middle finger trigger release and carpal tunnel release. The patient is 10 days post op. Sutures have been removed. She can make a fist, and the swelling is expected to decrease over time. She was advised to use ice, maintain normal hygiene with regular soap and water, and start scar massage using any available lotion at home to help flatten and desensitize the scars. A referral for hand therapy with Geena Vasquez at [facility] was provided. The patient can start therapy immediately, which will include treatments for her scars. 2. Trigger finger of the left hand. The patient has a trigger finger on her left hand, which sometimes limits her ability to make a full fist. An injection was recommended to potentially alleviate the symptoms and prevent worsening. The injection will be administered by the physician regulatory affairs assistant. The skin overlying the A1 kaleb of the affected digit was prepped with alcohol and betadine. The skin was anesthetized with ethyl chloride and a 25 gauge 5/8 inch needle was inserted beneath the A1 kaleb adjacent to the flexor tendon sheath. A mixture of 0.5 mL of betamethasone and 0.5 mL of 1% plain lidocaine was injected. The needle was withdrawn and a bandaid was applied. The patient was instructed to ice the hand and to watch for any signs of infection including redness, increased pain, drainage from the injection site, fever, chills, etc. The patient was instructed to call the office if he/she experiences any adverse reaction to the injection. The injection was administered by our physician regulatory affairs assistant, Rebel Zamudio PA-C, under my direct supervision. Follow-up Return in 6 weeks for follow up. Diagnoses and all orders for this visit: Left hand pain - Hand / UE Inj/Asp - Ambulatory referral to Occupational Therapy; Future Phil Ryan D.O. Attestation This note was created using voice recognition through Build[employer]. documented in this encounter [facility] 01-05-2024 Evaluation note Encounter Date Diagnosis Assessment Notes Dec, Primary insomnia (ICD-10 - F51.01) [facility] 12-05-2023 Evaluation note* Encounter Date Diagnosis Assessment Notes [...] index [BMI] 30.0-30.9, adult (ICD-10 - Z68.30) [facility] 10-31-2023 Evaluation note* Encounter Date Diagnosis Assessment Notes Treatment Notes Treatment Clinical Notes Aug, ALYSSA (generalized anxiety disorder) (ICD-10 - F41.1) [facility] 10-24-2023 Evaluation note* Encounter Date Diagnosis [...] to 4-6 wks to reach maximum benefit [facility] 10-02-2023 Evaluation note* Encounter Date Diagnosis Assessment Notes Treatment Notes Treatment Clinical Notes Aug, Tachycardia (ICD-10 - R00.0) [facility] 10-02-2023 Evaluation note* Encounter Date Diagnosis [...] F41.1) Healthy diet, exercise and keep active [facility] 09-19-2023 Evaluation note* Encounter Date Diagnosis [...] for any further stings w/ systemic reaction [facility] 09-05-2023 Evaluation note* Encounter Date Diagnosis Assessment Notes Treatment Notes Treatment Clinical Notes Jul, Primary insomnia (ICD-10 - F51.01) [facility] 06-20-2023 Evaluation note* Encounter Date Diagnosis Assessment Notes Treatment Notes Treatment Clinical Notes Apr, Primary insomnia (ICD-10 - F51.01) [facility] 03-29-2023 Evaluation note* Encounter Date Diagnosis [...] in remission (ICD-10 - F17.211) Continue abstinence [facility] Evaluation noteNo [employer] Other Evaluation noteNo assessment information available [facility] Work Phone: Evaluation note* Diagnosis Left hand pain Pain in soft tissues of limb documented in this encounter [facility]* Diagnosis Left hand pain- Primary Pain in soft tissues of limb Trigger finger, right middle finger Carpal tunnel syndrome of right wrist documented in this encounter [facility]* Diagnosis Carpal tunnel syndrome of right wrist- Primary Trigger finger, right middle finger documented in this encounter [facility]* Diagnosis Carpal tunnel syndrome of right wrist- Primary Left hand pain Pain in soft tissues of limb Left wrist pain Pain in joint, forearm Trigger finger, right middle finger documented in this encounter [facility]* Diagnosis Carpal tunnel syndrome of right wrist- Primary Trigger finger, right middle finger documented in this encounter [facility] Healthcare[facility]* Diagnosis Onset Date Resolution Status Admit Date Acute bronchitis due to othe r specified organisms acute September 1:23pm Essential hypertension acute No vember 2023 1:23pm Fibromyalgia acute September 1:23pm Knee pain, bilateral acute Nove mber 2023 1:23pm Pain in both feet acute Novembe r 2023 1:23pm [facility] Work Phone: Evaluation note* Diagnosis S/P carpal tunnel release- Primary Other postprocedural status documented in this encounter [facility] general Narrative - Reported* Type Description Date [...] teresa/bso Hospitalization History hysterectomy Hospitalization History childbirth [place] [employer] Other [facility] - [facility] [employer] Other Reason for referral (narrative)* Consultation (Routine) - Authorized Specialty Diagnoses / Procedures Referred By Contac t Referred To Contact Occupational Therapy / Physical Therapy Diagnoses Left hand pain Procedures NH OFFICE/OUTPATIENT NEW HIGH MDM 60 MINUTES Phil Ryan DO [address] [place] [address] Geena Vasquez, OT [address] [place] [address] Referral ID Status Reason Start Date Expiration Date Visits Requested Visits Authorized [id number] Authorized Consult and Treat 08/27/2024 02/23/2025 10 10 * Clinic-Administered Medication (Routine) - Closed Specialty Diagnoses / Procedures Referred By Contac t Referred To Contact Orthopaedic Surgery Diagnoses Left hand pain Procedures Hand / UE Inj/Asp Phil Ryan DO [address] [place] [address] [facility] [address] [place] [address] Referral ID Status Reason Start Date Expiration Date Visits Re quested Visits Authorized [id number] Closed 08/26/2024 02/22/2025 1 1 [facility] Narrative* Consultation (Routine) - Authorized Specialty Diagnoses / Procedures Referred By Contac t Referred To Contact Occupational Therapy / Physical Therapy Diagnoses Left hand pain Procedures [place] OFFICE/OUTPATIENT NEW HIGH MDM 60 MINUTES Phil Ryan DO [address] [place] [address] Geena Vasquez, OT [address] [place] [address] Referral ID Status Reason Start Date Expiration Date Visits Requested Visits Authorized [id number] Authorized Consult and Treat 08/27/2024 02/23/[address] [facility] HealthcareReason for visit Narrative* Consultation (Routine) - Authorized Specialty Diagnoses / Procedures Referred By Helena t Referred To Contact Occupational Therapy / Physical Therapy Diagnoses Left hand pain Procedures [place] OFFICE/OUTPATIENT NEW HIGH MDM 60 MINUTES Phil Ryan, DO [address] [place] [address] Phone: tel: fax: Geena Vasquez, OT [address] [place] [address] Phone: tel: fax: Referral ID Status Reason Start Date Expiration Date Visits Requested Visits Authorized [id number] Authorized Consult and Treat 08/27/2024 02/23/[address] [facility] Healthcare Summary Purpose Family History Relationship Condition Age at Onset Recorded Date/T chivo father Heart disease Unknown Unknown Not Specified Unknown Relationship Condition Age at Onset Recorded Date/T chivo father Heart disease Unknown Unknown mother Unknown Advance Directives Advance Directive Response Recorded Date/ Time Advance Directives No December 10:41am Advance Directive Response Recorded Date/ Time Advance Directives No December 9:41am Chief Complaint and Reason for Visit Chief Complaint allergies Chief Complaint Admit Date Chronic Pain October 11, 2024 1:23pm Reason for Visit Admit Date Acute bronchitis due to other specified organisms October 11, 2024 1:23pm Essential hypertension October 11 1:23pm Fibromyalgia October 11, 2024 1:23pm Knee pain, bilateral October 11, 2024 1:23pm Pain in both feet October 11, 2024 1:23pm Additional Source Comments INFORMATION SOURCE (unrecogn ized section and content) DATE CREATED AUTHOR 05/15/2018 [facility] DATE CREATED AUTHOR AUTHOR'S ORGANIZ ATION 02/28/2023 [facility] DATE CREATED AUTHOR AUTHOR'S ORGANIZ ATION 07/29/2024 [facility] DATE CREATED AUTHOR AUTHOR'S ORGANIZ ATION 10/14/2024 [facility] REASON FOR VISIT (unrecogniz ed section and content) Reason Comments Post-op Reason Comments Post-op Reason Onset Date Comments OT 10/20/2024 Care Teams (unrecognized sec tion and content) [employer] Relationship Specialty Start Date End Date Tereso Haider MD [address] [place] [id number] PCP - General 05/22/23 Team Status: Active Member Role Status Dates Tereso Haider DO Primary Care Provider Active Team Status: Inactive Member Role Status Dates Tereso Haider DO Primary Care Provide r, Attending Provider Active Start: May 10, 2024 End: May 10, 2024 [employer] Relationship Specialty Start Date End Date Tereso Haider MD [address] [place] [id number] PCP - General 05/22/23 [employer] Relationship Specialty Start Date End Date Tereso Haider MD [address] [place] [phone] PCP - General 05/22/23 [employer] Specialist Relationship Specialty Start Date End Date Tereso Haider MD [address] [id number] PCP - General 05/22/23 [employer] Specialist Relationship Specialty Start Date End Date Tereso Haider MD [address] [id number] PCP - General 05/22/23 [employer] Specialist Relationship Specialty Start Date End Date Tereso Haider MD [address] [id number] PCP - General 05/22/23 [employer] Specialist Relationship Specialty Start Date End Date Tereso Haider MD [address] [place] [id number] PCP - General 05/22/23 [employer] Specialist Relationship Specialty Start Date End Date Tereso Haider MD [address] [place] [phone] PCP - General 05/22/23 Team Status: Inactive Member Role Status Dates Tereso Haider , Primary Care Provide r, Attending Provider Active Start: October 11, 2024 End: October 11, 2024 [employer] Specialist Relationship Specialty Start Date End Date Tereso Haider MD [address] [place] [phone] PCP - General 05/22/23 Goals (unrecognized section and content) Goals may [...] BE BASED ON THE PRIMARY CLINICAL RECORDS. [employer] [facility]. provides no warranty or guarantee of the accuracy or completeness of information in this document.
== END 2024-10-22 08:29 | disposition home or self-care (01) ==
LOC: RAD 08:28
PROVIDERS: PCP Internal Medicine; Visit Provider Internal Medicine
DX: M79.671 Pain in right foot (principal); M79.672 Pain in left foot; M25.569 Pain in unspecified knee; M25.561 Pain in right knee; M25.562 Pain in left knee
CPT/HCPCS: 73564; 73630

== ENCOUNTER 2025-05-12 07:14 | Outpatient (OUT) | payer MEDICARE, SELFPAY ==
--- OUTSIDE RECORDS SUMMARY | 2025-05-12 07:16 | XMS_ITS | CCD ---
Author Organization [facility] Care Team Providers Care Scooper Name Role Phone VÍCTOR, MISBAH H. Unavailable Unavailable TERESO HAIDER Unavailable Unavailable VÍCTOR, MISBAH H. Unavailable Unavailable VÍCTOR, MISBAH H. Unavailable Unavailable TERESO HAIDER Unavailable Unavailable VÍCTOR, MISBAH HAngeles Unavailable Unavailable Tereso Haider Unavailable CARO, DR CASILLAS Attending Unavailable BALL, DR CASILLAS Consulting Unavailable BALL, DR CASILLAS Primary Care Unavailable CARO, DR CASILLAS Admitting Unavailable REQUEST, NONE LISTED Consulting Unavailruperto valdez REQUEST, NONE LISTED Admitting Unavailruperto HAIDER, DR CASILLAS Primary Care Unavailable REQUEST, NONE LISTED Attending Tereso Cavanaugh MD Primary Care Provider Grace Linares Attending Unavailable BLACKSTON, GEENA Attending Unavailable BROWN, PHIL A Referring Unavailable BROWN, PHIL A Attending Unavailable BROWN, PHIL A Attending Unavailable BLACKSTON, GEENA Attending Unavailable BROWN, PHIL A Referring Unavailable BLACKSTON, GEENA Attending Unavailable BROWN, PHIL A Referring Unavailable BLACKSTON, GEENA Attending Unavailable BROWN, HPIL A Referring Unavailable BLACKSTON, GEENA Attending Unavailable [...] Attending Unavailable BROWN, PHIL A Referring Unavailable RAMBASEK, LUISA E Attending Unavailable BROWN, PHIL A Referring Unavailable BROWN, PHIL A Attending Unavailable RAMBASEK, LUISA E Attending Unavailable Allergies Allergy Classification Reported Allergen(s) Allergy Type Date of Onset Reaction(s) Facility (3 sources) patient allergy list reviewed by nurse or physicia Propensity to adverse reactions 5 Comment:Done Quirky Other (9 sources) [place] Venom Propensity to adverse reactions 3 Anaphylaxis [facility] Medications Current Medications Medication Drug Class(es) Dates Sig (Normalized) Sig (Original) azelastine hydrochloride 0.137 mg/actuat metered dose nasal spray (2 sources) Histamine-1 Receptor Antagonist Start: 03-02-2025 End: 03-02-2026 take 2 spray(s) nasal route in the morning azelastine (Astelin) 0.1 % nasal spray Indications: Chronic rhinitis Administer 2 sprays into each nostril in the morning and 2 sprays before bedtime. Use in each nostril as directed. 90 mL 3 03/02/2025 03/02/2026 Active Calcium (15 sources) Phosphate Binder, Calcium Calcium 1 tab Oral Active Calcium 1 tab Or al Not-Taking calcium carbonate 1250 mg oral tablet (3 sources) Start: 12-24-2017 Calcium Carbon ate (Calcium 500) 500 mg calcium (1,250 mg) Tablet Active TABLET December 24, 2017 1:00am celecoxib 100 mg oral capsule (11 sources) Nonsteroidal Anti-inflammatory Drug Start: 12-28-2024 End: 03-28-2025 take 1 capsule by mouth in the morning for pain celecoxib (CeleBREX) 100 MG capsule Indications: Right knee pain, unspecified chronicity Take 1 capsule (100 mg) by mouth in the morning and 1 capsule (100 mg) before bedtime. Take as needed for pain. 60 capsule 2 12/28/2024 03/28/2025 Active Start: 08-16-2024 End: 11-14-2024 take 1 capsule by mouth in the morning for pain celecoxib (CeleBREX) 100 MG capsule Indications: Right shoulder pain, unspecified chronicity Take 1 capsule (100 mg) by mouth in the morning and 1 capsule (100 mg) before bedtime. Take as needed for pain. 60 capsule 08/16/2024 08/26/2024 Discontinued (Therapy completed) Start: 05-10-2024 End: 10-25-2024 take 1 capsule by mouth once daily Celecoxib (Celebrex) 200 mg capsule Discontinued 200 MG PO Daily May 10, 2024 12:00am October 25, 2024 1:15pm Centrum Silver 50+Women - (15 sources) Centrum Silver 5 0+Women - Orally Active Centrum Silver 5 0+Women - Orally Not-Taking chondroitin sulfates 400 mg / glucosamine sulfate 500 mg oral tablet (20 sources) take 1 tablet by mouth in [...] 6-8 hours for 30 days Nov, Not-Taking [id number] 0.3 ml EPINEPHrine 1 mg/ml auto-injector (9 sources) alpha-Adrenergic Agonist, beta-Adrenergic Agonist, Catecholamine Start: 10-28-2024 End: 12-10-2025 EPINEPHrine (Epipen) 0.3 MG/0.3ML injection syringe Indications: Hymenoptera allergy Inject 0.3 mL (0.3 mg) as directed if needed for anaphylaxis Call 911 after use. 4 each 12/10/2024 12/10/2025 Active escitalopram 10 mg oral tablet (3 sources) Serotonin Reuptake Inhibitor Start: 09-16-2023 take 1 tablet by mouth every twenty-four hours Escitalopram Oxalate 10 MG 1 tablet Orally Once a day for 30 days Aug, Active Fish Oil + D3 9562-3108 MG-UNIT (15 sources) take 1 capsule by mouth three times daily Fish Oil + D3 3317-8884 MG-UNIT 1 capsule Orally Three times a day Active take 1 capsule by mouth three ti mes daily Fish Oil + D3 3640-9229 MG-UNIT 1 capsule Orally Three times a day Not-Taking fluticasone (6 sources) Corticosteroid Start: 02-19-2023 Start: 02-19-2023 take 1-2 spray(s) na cordelia route once daily at bedtime FLONASE 50 mcg 1-2 sprays each NOSTRIL nasal QHS for 30 days Jan, Active gadoteridol (Prohance) injection 5,586 mg (20 sources) Start: 06-24-2023 gadoteridol (Prohance) injection 5,586 mg hydroCHLOROthiazide 12.5 mg / lisinopril 20 mg oral tablet (20 sources) Thiazide Diuretic, Angiotensin Converting Enzyme Inhibitor Start: 08-09-2024 End: 12-26-2024 take 1 tablet by mouth once daily Lisinopril-Swiss chlorothiazide 20-12.5 mg tablet Active 0 .ROUTE .COMPLEX 90 December 26, 2024 10:11am TAKE 1 TABLET BY MOUTH DAILY Start: 01-26-2024 End: 08-09-2024 take 1 tablet by mouth once daily Lisinopril-Hydrochlorothiazide 20-12.5 m g tablet Discontinued 1 TAB PO Daily January 26, 2024 3:32pm August 09, 2024 1:29pm Start: 12-24-2017 End: 01-26-2024 lisinopril-hydroCHLOROthiazi de 20-12.5 MG tablet 12/25/2023 Active take 1 tablet by samantha th once daily Lisinopril-hydroCHLOROthiazide 20-12.5 M G TAKE 1 TABLET BY MOUTH DAILY Active take 1 tablet by samantha th once daily Lisinopril-hydroCHLOROthiazide 20-12.5 M G TAKE 1 TABLET BY MOUTH DAILY Active lisinopril 10 mg oral tablet (20 sources) Angiotensin Converting Enzyme Inhibitor take 1 tablet by mouth once daily lisinopril 10 MG tablet Take 10 mg by mouth 1 (one) time each day at the same time. Active Multiple Vitamin (multivitamin) tablet (20 sources) take 1 tablet by mouth once daily Multiple Vitamin (multivitamin) tablet Take 1 tablet by mouth Daily Active Vbufbyyr-Ysa-Pigx-Fa -Vit K-Lut (Centrum Silver Women) 8 mg iron-400 mcg-300 mcg Tablet (3 sources) Start: 12-24-2017 Nmwxzkkp-Ldk-Blmx-F a-Vit K-Lut (Centrum Silver Women) 8 mg iron-400 mcg-300 mcg Tablet Active TABLET December 24, 2017 12:00am Start: 12-24-2017 Pdanyved-Pee-C lucia-Fa-Vit K-Lut (Centrum Silver Women) 8 mg iron-400 mcg-300 mcg Tablet Active TABLET December 24, 2017 1:00am nabumetone 750 mg oral tablet (2 sources) Nonsteroidal Anti-inflammatory Drug Start: 10-11-2024 take 1 tablet by mouth twice daily Nabumetone 750 mg tablet Active 750 MG PO Twice daily October 11, 2024 1:00am Tylenol Extra Strength 500 MG (14 sources) take 2 tablets by mouth every six hours as needed Tylenol Extra Strength 500 MG 2 tablets as needed Orally every 6 hrs Active take 2 tablets by mo uth every six hours as needed Tylenol Extra Strength 500 MG 2 tablets as needed Orally every 6 hrs Not-Taking Completed/Discontinued Medications Medication Drug Class(es) Dates Sig [...] tablet by mouth every four hours HYDROcodone-acetaminophen ([place]ie) 5-325 MG tablet Indications: Right shoulder pain, unspecified chronicity Take 1 tablet by mouth every 4 (four) hours if needed (pain) for up to 7 days 20 tablet 08/16/2024 08/26/2024 Discontinued (Therapy completed) ALPRAZolam 0.5 mg oral tablet (3 sources) Benzodiazepine Start: 12-24-2017 End: 01-23-2024 Alprazolam 0.5 mg tablet Discontinued TABLET December 24, 2017 1:00am January 23, 2024 1:22pm Start: 12-24-2017 End: 01-23-2024 Alprazolam Discontinued TABL ET December 24, 2017 1:00am January 23, 2024 1:22pm azithromycin 250 mg oral tablet (2 sources) Macrolide Antimicrobial Start: 10-11-2024 End: 02-01-2025 Azithromycin 250 mg tablet Discontinued 250 MG PO .COMPLEX 6 5 October 11, 2024 1:00am February 01, 2025 3:41pm 2 tabs on first day followed by 1 tab on days 2-5 betamethasone 3 mg/ml / betamethasone acetate 3 mg/ml injectable suspension (20 sources) Corticosteroid Start: 12-28-2024 End: 12-28-2024 1 mL, Intra-articular, Once PRN Procedure, Starting on Fri12/28/24 at 1636, For 1 dose Start: 12-28-2024 End: 12-28-2024 betamethasone acetate-betame thasone sodium phosphate (Celestone) injection 1 mL Start: 08-26-2024 End: 08-26-2024 0.5 mL, Intra-articular, Onc e PRN Procedure, Starting on Fri08/26/24 at 1630, For 1 dose Start: 08-26-2024 End: 08-26-2024 betamethasone acetate-betame thasone sodium phosphate (Celestone) injection 0.5 mL Start: 07-20-2024 End: 07-20-2024 1 mL, Intra-articular, Once PRN Procedure, Starting on Fri07/20/24 at 1039, For 1 dose Start: 07-20-2024 End: 07-20-2024 betamethasone acetate-betame thasone sodium phosphate (Celestone) injection 1 mL docusate sodium 100 mg oral capsule (3 [...] 2 mg LORazepam 0.5 mg oral tablet (15 sources) Benzodiazepine Start: 01-23-2024 End: 01-26-2024 take [...] succinate 25 mg extended release oral tablet (11 sources) beta-Adrenergic Mitra Start: 01-23-2024 End: 01-26-2024 [...] MG 1/2 Orally bid Active triamcinolone acetonide 32 mg injection (5 sources) Corticosteroid Start: 12-28-2024 End: 12-28-2024 triamcinolone acetonide (Zilretta) injection 32 mg Start: 12-28-2024 End: 12-28-2024 32 mg, Once PRN Procedure, S tarting on Fri12/28/24 at 1635, For 1 dose Start: 11-13-2023 Kenalog-40 Oct, 1 mg zolpidem tartrate 5 mg oral tablet (20 sources) gamma-Aminobutyric Acid-ergic Agonist Start: 01-14-2024 End: 09-26-2024 take 1 tablet by mouth once daily at bedtime Zolpidem 5 mg tablet Discontinued 5 MG PO Daily at bedtime 90 January 14, 2024 2:22pm September 26, 2024 8:51pm Start: 01-05-2024 Zolpidem Tartr ate 5 MG [...] ONE-HALF TABLET BY MOUTH AT BEDTIME for Jan, Active take 2.5 mg by mouth every twenty-four hours as needed zolpidem (Ambien) 5 MG tablet Take 2.5 mg by mouth Daily as needed. 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; Translations: [Other insect allergy status] 10-28-2024 Episodic Anxiety disorders (20 sources) Claustrophobia; Translations: [Claustrophobia] Chronic Cardiac dysrhythmias (4 sources) Tachycardia, unspecified Episodic Conditions associated with dizziness or vertigo (18 sources) Benign paroxysmal positional vertigo; Translations: [Benign paroxysmal vertigo, bilateral] Episodic Diabetes mellitus with complications (20 sources) Type 2 diabetes mellitus; Translations: [Type 2 diabetes mellitus with hyperglycemia] Onset: 02-19-2023 Chronic Diabetes mellitus without complication (2 sources) Impaired fasting glycemia; Translations: [Impaired fasting glucose] [...] that caused by tuberculosis or sexually transmitteddisease) (2 sources) Allergic conjunctivitis; Translations: [Acute atopic conjunctivitis, unspecified [...] D deficiency, unspecified] Onset: 07-15-2014 Chronic Osteoarthritis (12 sources) Osteoarthritis of knee; Translations: [Bilateral primary [...] bone disease and musculoskeletal deformities (3 sources) Osteopenia; Translations: [Other specified disorders of bone density and structure, other site] 01-23-2024 Episodic Other congenital anomalies (3 sources) Congenital spondylolysis of lumbosacral region; Translations: [Congenital spondylolysis, lumbosacral region] Onset: 09-30-2017 Chronic Other connective tissue disease (18 sources) Enthesopathy of hip region; Translations: [Iliotibial band syndrome, right leg] Episodic Other connective tissue disease (5 sources) Fibromyalgia; Translations: [Fibromyalgia] 10-11-2024 Episodic Other connective tissue disease (1 source) Supraspinatus tear; Translations: [Unspecified rotator cuff tear or rupture of right shoulder, not specified as traumatic] Episodic Other connective tissue disease (3 sources) Iliotibial band friction syndrome of right knee; Translations: [Iliotibial band syndrome, right leg] 01-23-2024 Episodic Other connective tissue disease (2 sources) Foot pain; Translations: [Pain in right foot] [...] hip] 01-23-2024 Episodic Other non-traumatic joint disorders (7 sources) Pain in right knee; Translations: [Pain in both knees] 10-11-2024 Episodic Other non-traumatic joint disorders (4 sources) Pain in right shoulder; Translations: [Pain in joint, shoulder region] 07-20-2024 Episodic Other nutritional; endocrine; and metabolic disorders [...] to pollen] Chronic Other upper respiratory disease (5 sources) Allergic rhinitis; Translations: [Allergic rhinitis, unspecified] 05-10-2024 Chronic Other upper respiratory disease (2 sources) Chronic rhinitis; Translations: [Chronic rhinitis] 03-02-2025 Chronic Other upper respiratory infections (6 sources) [...] Translations: [Nicotine dependence, cigarettes, in remission] Chronic Unclassified (4 sources) Right shoulder pain, unspecified chronicity 12-29-2024 Unclassified (2 sources) Right knee pain, unspecified chronicity 12-29-2024 Varicose veins of lower extremity (18 sources) Pain co-occurrent and due to varicose [...] Onset: 04-22-2019 Episodic Other connective tissue disease (20 sources) Pain of left hand; Translations: [Pain in left hand] Onset: 02-20-2024 Resolved: 09-03-2024 02-20-2024 Episodic Other connective tissue disease (20 sources) Triggering of digit; Translations: [Trigger finger, right middle finger] Onset: 09-03-2024 09-03-2024 Episodic Other nervous system disorders (3 sources) Paresthesia; Translations: [Paresthesia of skin] Onset: 10-24-2014 Episodic Other non-traumatic joint disorders (20 sources) Pain of left wrist; Translations: [Pain [...] Test Name Value Interpretation Reference Range Facility XR Knee - right 3 [facility] Result: Three views, bilateral PA weight-bearing, sunrise, lateral of the right knee(s) taken today and saved to the permanent medical record are reviewed. Medial and lateral joint spaces preserved. Moderate PF arthritis. [facility] No Panel Informationon 12-28 GEORGINA Carter T 12/29/2024 6:06 PM L Inj/Asp: R subacromial bursa on 12/28/2024 4:36 PM Indications: pain Details: 25 G needle Medications: 1 mL betamethasone acetate-betamethasone sodium phosphate 6 (3-3) MG/ML Consent was given by the patient. [facility] GEORGINA Carter T 12/29/2024 6:06 PM L Inj/Asp: R glenohumeral on 12/28/2024 4:35 PM Indications: pain Details: 25 G needle Medications: 1 mL betamethasone acetate-betamethasone sodium phosphate 6 (3-3) MG/ML Consent was given by the patient. [facility] Jud Ace, ARR T 12/29/2024 6:06 PM L Inj/Asp: R knee on 12/28/2024 4:35 PM Indications: pain Details: 22 G needle, lateral approach Medications: 32 mg triamcinolone acetonide 32 MG Consent was given by the patient. [facility] XR Knee - right 3 [facility] Study observation (narrative) [facility] Panel Informationon 08-26 Chaya Baezaing 5:53 PM Hand / UE Inj/Asp for trigger finger on 08/26/2024 4:30 PM Indications: pain Details: 25 G needle Medications: 0.5 mL betamethasone acetate-betamethasone sodium phosphate 6 (3-3) MG/ML [facility] Panel Informationon 07-20 Radha Diehl MA 2023 8:19 PM L Inj/Asp on 07/20/2024 10:39 AM Indications: pain Details: 25 G needle, ultrasound-guided Medications: 1 mL betamethasone acetate-betamethasone sodium phosphate 6 (3-3) MG/ML [facility] Radha Diehl MA 2023 8:19 PM L Inj/Asp on 07/20/2024 10:39 AM Indications: pain Details: 25 G needle, ultrasound-guided Medications: 1 mL betamethasone acetate-betamethasone sodium phosphate 6 (3-3) MG/ML [facility] XR Shoulder - right 2 [facility] 07-20-2024 Imaging Result: 4 views right shoulder, Grashey/Zanca/outlet/axi llary, taken today and saved to the permanent medical record are reviewed. Calcification adjacent to lesser tuberosity with smaller calcification adjacent to greater tuberosity medially, ACI WNL. GH joint space preserved. Signifcant AC arthritis, type 2 acromion [facility] Radiology Study observation (narrative) [facility] GLYCOHEMOGLOBIN A1Con 2022 ADA RECOMMENDATION SEE BELOW Normal [facility] Comment on above: Result Comment: ADA RECOMMENDED LIMIT 4.0 - 6.0 ADA THERAPEUTIC TARGET < 7.0 ACTION SUGGESTED > 7.0 Performed By: #### A 1C #### [facility] [address] [place] [address] Dr. Hiwot Hernández Glucose [Mass/Vol] 117 mg/dL Normal [facility] Comment on above: Performed By: #### A 1C #### [facility] [address] [place] [address] Dr. Hiwot Hernández HbA1c (Bld) [Mass fraction] 5.7 % Normal 4.5-6.2 [facility] Comment on above: Performed By: #### A 1C #### [facility] [address] [place] [address] Dr. Hiwot Hernández CBC AUTO DIFFon 12-02-2022 BASO # 0.1 103/ul Normal 0.0-0.1 [facility] Comment on above: Performed By: #### D ATCBC #### [facility] [address] [place] [address] Dr. Hiwot Hernández Basophils/100 WBC (Bld) 0.6 % Normal 0.2-2.0 [facility] Comment on above: Performed By: #### D ATCBC #### [facility] [address] [place] [address] Dr. Hiwot Hernández EO # 0.2 103/ul Normal 0.0-0.7 [facility] Comment on above: Performed By: #### D ATCBC #### [facility] [address] [place] [address] Dr. Hiwot Hernández Eosinophils/100 WBC (Bld) 2.1 % Normal 0.9-7.0 [facility] Comment on above: Performed By: #### D ATCBC #### [facility] [address] [place] [address] Dr. Hiwot Hernández Erythrocyte distribution width (RBC) [Ratio] 12.1 % Normal 11.0-15.0 [facility] Comment on above: Performed By: #### D ATCBC #### [facility] [address] [place] [address] Dr. Hiwot Hernández Hematocrit (Bld) [Volume fraction] 38.9 % Normal 36.0-48.0 [facility] Comment on above: Performed By: #### D ATCBC #### [facility] [address] [address] [address] Hiwot Hernández Hemoglobin (Bld) [Mass/Vol] 14.0 g/dL Normal 12.0-16.0 [facility] Comment on above: Performed By: #### D ATCBC #### [facility] [address] [address] [address] Hiwot Hernández IG # 0.03 10e3/ul Normal 0.00-0.03 [facility] Comment on above: Performed By: #### D ATCBC #### [facility] [address] [place] [address] Dr. Hiwot Hernández IG % 0.3 % Normal 0.0-0.5 [facility] Comment on above: Performed By: #### D ATCBC #### [facility] [address] [place] [address] Dr. Hiwot Hernández LYMPH # 2.6 103/ul Normal 1.2-3.8 [facility] Comment on above: Performed By: #### D ATCBC #### [facility] [address] [place] [address] Dr. Hiwot Hernández Lymphocytes/100 WBC (Bld) 27.3 % Normal 20.5-60.0 [facility] Comment on above: Performed By: #### D ATCBC #### [facility] [address] [place] [address] Dr. Hiwot Hernández MCH (RBC) [Entitic mass] 30.6 pg Normal 26.7-34.0 [facility] Comment on above: Performed By: #### D ATCBC #### [facility] [address] [place] [address] Dr. Hiwot Hernández MCHC (RBC) [Mass/Vol] 36.0 g/dL Critically high 29.9-35.2 [facility] Comment on above: Performed By: #### D ATCBC #### [facility] [address] [place] [address] Dr. Hiwot Hernández MCV (RBC) [Entitic vol] 84.9 fL Normal 81.0-99.0 [facility] Comment on above: Performed By: #### D ATCBC #### [facility] [address] [address] [address] Hiwot Hernández MONO # 0.9 103/ul Critically high 0.3-0.8 [facility] Comment on above: Performed By: #### D ATCBC #### [facility] [address] [address] [address] Hiwot Hernández Monocytes/100 WBC (Bld) 9.5 % Normal 1.7-12.0 [facility] Comment on above: Performed By: #### D ATCBC #### [facility] [address] [address] [address] Hiwot Hernández NEUT # 5.7 103/ul Normal 1.4-6.5 [facility] Comment on above: Performed By: #### D ATCBC #### [facility] [address] [address] [address] Hiwot Hernández Neutrophils/100 WBC (Bld) 60.2 % Normal 43.0-75.0 [facility] Comment on above: Performed By: #### D ATCBC #### [facility] [address] [address] [address] Hiwot Hernández Platelet mean volume (Bld) [Entitic vol] 10.1 fL Normal 9.5-13.5 [facility] Comment on above: Performed By: #### D ATCBC #### [facility] [address] [address] [address] Hiwot Hernández PLT 247 103/ul Normal 150-450 [facility] Comment on above: Performed By: #### D ATCBC #### [facility] [address] [address] [address] Hiwot Hernández RBC 4.58 106/ul Normal 4.20-5.40 [facility] Comment on above: Performed By: #### D ATCBC #### [facility] [address] [address] [address] Hiwot Hernández WBC 9.4 103/ul Normal 4.0-11.0 [facility] Comment on above: Performed By: #### D ATCBC #### [facility] [address] [address] [address] Hiwot Hernández AIRAM- BMP WITH LIPIDon 2022 Anion gap [Moles/Vol] 13.9 mmol/L Normal [facility] Comment on above: Performed By: #### D ATBMP #### [facility] [address] [address] [address] Hiwot Hernández Calcium [Mass/Vol] 9.6 mg/dL Normal 8.5-10.1 [facility] Comment on above: Performed By: #### D ATBMP #### [facility] [address] [address] [address] Hiwot Hernández Chloride [Moles/Vol] 103 mmol/L Normal 98-107 [facility] Comment on above: Performed By: #### D ATBMP #### [facility] [address] [address] [address] Hiwot Hernández Cholesterol [Mass/Vol] 172 mg/dL Normal <=200 [facility] Comment on above: Performed By: #### D ATBMP #### [facility] [address] [address] [address] Hiwot Hernández Cholesterol in HDL [Mass/Vol] 63 mg/dL Critically high 40-60 [facility] Comment on above: Performed By: #### D ATBMP #### [facility] [address] [address] [address] Hiwot Hernández Cholesterol in LDL [Mass/Vol] 75.0 mg/dL Normal [facility] Comment on above: Performed By: #### D ATBMP #### [facility] [address] [address] [address] Hiwot Hernández CO2 [Moles/Vol] 28.8 mmol/L Normal 21.0-32.0 [facility] Comment on above: Performed By: #### D ATBMP #### [facility] [address] [address] [address] Hiwot Hernández Creatinine [Mass/Vol] 1.15 mg/dL Critically high 0.55-1.02 [facility] Comment on above: Performed By: #### D ATBMP #### [facility] [address] [address] [address] Hiwot Hernández EGFR-AF PALAUAN 56 mL/min/1.73m2 Critically low >=60 [facility] Comment on above: Performed By: #### D ATBMP #### [facility] [address] [address] [address] Hiwot Hernández EGFR-NON AF PALAUAN 46 mL/min/1.73m2 Critically low >=60 [facility] Comment on above: Performed By: #### D ATBMP #### [facility] [address] [address] [address] Hiwot Hernández Glucose [Mass/Vol] 129 mg/dL Critically high 74-106 [facility] Comment on above: Performed By: #### D ATBMP #### [facility] [address] [address] [address] Hiwot Hernández HDL NORMAL > or = 60 mg/dl - LO W CARDIOVASCULAR RISK <40 mg/dl - HIGH CARDIOVASCULAR RISK Normal [facility] Comment on above: Performed By: #### D ATBMP #### [facility] [address] [address] [address] Hiwot Hernández LDL CALC NORMAL SEE BELOW Normal [facility] Comment on above: Result Comment: <100 mg/dl OPTIMAL 100 - 129 mg/dl NEAR OR ABOVE OPTIMAL 130 - 159 mg/dl BORDERLINE HIGH 160 - 189 mg/dl HIGH >190 mg/dl VERY HIGH Performed By: #### D ATBMP #### [facility] [address] [address] [address] Hiwot Hernández Potassium [Moles/Vol] 3.7 mmol/L Normal 3.5-5.1 [facility] Comment on above: Performed By: #### D ATBMP #### [facility] [address] [address] [address] Hiwot Hernández Sodium [Moles/Vol] 142 mmol/L Normal 136-145 [facility] Comment on above: Performed By: #### D ATBMP #### [facility] [address] [address] [address] Hiwot Hernández Triglyceride [Mass/Vol] 170 mg/dL Critically high <=150 [facility] Comment on above: Performed By: #### D ATBMP #### [facility] [address] [address] [address] Hiwot Hernández Urea nitrogen [Mass/Vol] 28.0 mg/dL Critically high 7.0-18.0 [facility] Comment on above: Performed By: #### D ATBMP #### [facility] [address] [address] [address] Hiwot Hernández Urea nitrogen/Creatinine [Mass ratio] 24.3 mg/mg Normal [facility] Comment on above: Performed By: #### D ATBMP #### [facility] [address] [address] [address] Hiwot Hernández VLDL CALC 34.0 mg/dL Normal [facility] Comment on above: Performed By: #### D ATBMP #### [facility] [address] [address] [address] Hiwot Hernández FLUORO FOR SURGICAL PROCEDUR ESon 01-15-2018 FLUORO FOR SURGICAL PROCEDURES Fluoroscopy surgical procedure.HISTORY:Cervic al fusion.FINDINGS:43.8 seconds fluoroscopy time. 3 images.Procedure performed as imaging guidance for anterior lower cervical fusion.IMPRESSION: Fluoroscopy for surgical procedure as describedInterpreted by:JULIO Valladaresigned by:Tereso Lamar MD01/15/18inal result Normal [facility] Basic Metabolic Panelon 12-25 Anion gap 13 mmol/L Normal 7-13 [facility] Calcium 9.6 mg/dL Normal 8.6-10.2 [facility] Chloride 103 mmol/L Normal 98-107 [facility] CO2 27 mmol/L Normal 22-29 [facility] Creatinine 0.84 mg/dL Normal 0.50-0.90 [facility] eGFR (black) mL/min/{1.73_m2} Normal >60 [facility] Comment on above: Result Comment: >60 mL/min/1.73m2 EGFR, calc. for ages 18 and older using theMDRD formula (not corrected for weight), is valid for stablerenal function. eGFR (MDRD) mL/min/{1.73_m2} Normal >60 [facility] Comment on above: Result Comment: >60 mL/min/1.73m2 EGFR, calc. for ages 18 and older using theMDRD formula (not corrected for weight), is valid for stablerenal function. Glucose mass conc 100 mg/dL Normal 74-109 [facility] Potassium molar conc 4.4 mmol/L Normal 3.5-5.1 [facility] Sodium 143 mmol/L Normal 132-144 [facility] Urea nitrogen 23 mg/dL Normal 8-23 [facility] CBC With Platelet No Differe ntialon 01-12-2018 Erythrocyte distribution width Auto Ratio (RBC) 12.5 % Normal 11.5-14.5 [facility] Erythrocytes (RBC) 4.59 10*6/uL Normal 4.20-5.40 [facility] Hematocrit (HCT) 42.6 % Normal 37.0-47.0 [facility] Hemoglobin mass conc (Bld) 14.3 g/dL Normal 12.0-16.0 [facility] MCH 31.1 pg Normal 27.0-31.3 [facility] MCHC mass conc (RBC) 33.5 % Normal 33.0-37.0 [facility] MCV 92.7 fL Normal 82.0-100.0 [facility] Platelets 203 10*3/uL Normal 130-400 [facility] WBC (Leukocytes) 6.1 10*3/uL Normal 4.8-10.8 [facility] Culture, MRSA Screenon 01-12 Culture, MRSA Screen ORDERED BY: IRENE RENEE: Nares Nose COLLECTED: 01/12/18 13:53ANTIBIOTICS AT LAURA.: RECEIVED : 01/12/18 13:53Culture, MRSA Screen FINAL 01/13/18 13:51 No MRSA isolated Normal [facility] Culture, Urineon 01-12-2018 Culture, Urine ORDERED BY: IRENE RENEE: Urine Clean Catch COLLECTED: 01/12/18 14:17ANTIBIOTICS AT LAURA.: RECEIVED : 01/12/18 14:17Culture, Urine FINAL 01/13/18 10:16 >50,000 CFU/ml of mixed evin Multiple organisms isolated, no predominance. Culture indicates probable contamination. Please review colony count and clinical indications to determine if a repeat culture is necessary. No further workup to be done. Normal [facility] Partial Thromboplastin Timeo n 01-12-2018 aPTT 25.5 s Normal 21.6-35.4 [facility] Comment on above: Result Comment: Hepa rin Therapeutic Range: 38.8 - 54.6 seconds. Prothrombin Timeon 8 INR Coag RelTime (PPP) 1.0 {INR} Normal [facility] Comment on above: Result Comment: Edison mmended [...] Coag time (PPP) 10.9 s Normal 8.1-13.7 [facility] Type and Screen Capture 3 sc rn cellon 01-12-2018 Bilirubin (total) PATIENT: CARO Vicente LOC: [facility] BILL# : [id number] : 1945 SEX: FORDERED BY: VÍCTOR STEPHENS ORDERED : 01/12/2018 13:11 COLLECTED: 01/12/2018 14:00ORDER : [id number] RECEIVED : 01/12/2018 14:00 TEST NAME RESULT UNITS RANGES ABN FL STABORH Capture A POS FAntibody 3 Cell Scrn Captu NEG F ------ Normal [facility] Urinalysis, reflex to cultur cassi 01-12-2018 Bilirubin Ql (U) Negative Normal Negative [facility] Urine Reflexed to Culture YES Normal [facility] Urine, clarity CLOUDY Abnormal Clear [facility] Urine, color Yellow Normal [place] [facility] Urine, glucose presence Negative Normal Negative [facility] Urine, hemoglobin presence Negative Normal Negative [facility] Urine, ketones presence Negative Normal Negative [facility] Urine, leukocyte esterase presence LARGE Abnormal Negative [facility] Urine, nitrite presence Negative Normal Negative [facility] Urine, pH 6.5 [pH] Normal 5.0-9.0 [facility] Urine, protein presence Negative Normal Negative [facility] Urine, specific gravity 1.020 Normal 1.005-1.03 [facility] Urine, urobilinogen 0.2 {Tia'U}/dL Normal < 2.0 [facility] Urine Microscopicon 01-12-20 18 Urine Amorphous 1+ Normal [facility] Urine, bacteria in sediment Many Normal [facility] Urine, crystals in sediment 1+ Triple Phos Normal [facility] Urine, epithelial cells presence in sediment 5-10 Normal [facility] Urine, erythrocytes 0-2 Normal 0-2 [facility] Urine, leukocytes 3-5 Normal 0-5 [facility] Vital Signs Date Time Vital Sign Value Performing Clinician Facility 02-01-2025 15:36-0400 Body height 162.56 cm [facility] 02-01-2025 15:36-0400 Body mass index (BMI) [Ratio] 31.1 kg/m2 [facility] 02-01-2025 15:36-0400 Body weight 82.21 kg [facility] 02-01-2025 15:36-0400 Diastolic blood pressure 83 mm[Hg] [facility] 02-01-2025 15:36-0400 Heart rate 79 /min [facility] 02-01-2025 15:36-0400 Respiratory rate 12 /min [facility] 02-01-2025 15:36-0400 SaO2% (BldA) [Mass fraction] 97 % [facility] 02-01-2025 15:36-0400 Systolic blood pressure 151 mm[Hg] [facility] 12-28-2024 16:02-0500 Body height 162.6 cm Phil Ryan DO Work Phone: [facility] 12-28-2024 16:02-0500 Body mass index (BMI) [Ratio] 31.24 kg/m2 Phil Ryan DO Work Phone: [facility] 12-28-2024 16:02-0500 Body weight 82.56 kg Phil Ryan DO Work Phone: [facility] 10-28-2024 11:06-0500 Body mass index (BMI) [Ratio] 30.9 kg/m2 Luisa Auguste MD Work Phone: [facility] 10-28-2024 11:06-0500 Body weight 81.65 kg Luisa Auguste MD Work Phone: [facility] 10-12-2024 08:46-0500 Body height 162.6 cm Phil Ryan DO Work Phone: [facility] 10-12-2024 08:46-0500 Body mass index (BMI) [Ratio] 30.55 kg/m2 Phil Ryan DO Work Phone: [facility] 10-12-2024 08:46-0500 Body temperature 97.39 [degF] Phil Ryan DO Work Phone: [facility] 10-12-2024 08:46-0500 Body weight 80.74 kg Phil Ryan DO Work Phone: [facility] 10-11-2024 13:50-0500 Body mass index (BMI) [Ratio] 30.5 kg/m2 [facility] 10-11-2024 13:50-0500 Diastolic blood pressure 80 mm[Hg] [facility] 10-11-2024 13:50-0500 Systolic blood pressure 130 mm[Hg] [facility] 10-11-2024 13:27-0500 Body height 162.56 cm [facility] 10-11-2024 13:27-0500 Body weight 80.73 kg [facility] 10-11-2024 13:27-0500 Heart rate 78 /min [facility] 10-11-2024 13:27-0500 Respiratory rate 12 /min [facility] 08-26-2024 15:47-0400 Body height 162.6 cm Phil StrikeAd DO Work Phone: [facility] 08-26-2024 15:47-0400 Body mass index (BMI) [Ratio] 30.55 kg/m2 Phil Brown DO Work Phone: [facility] 08-26-2024 15:47-0400 Body weight 80.74 kg Phil Brown DO Work Phone: [facility] 07-20-2024 08:23-0400 Body height 162.6 cm Phil Brown DO Work Phone: [facility] 07-20-2024 08:23-0400 Body mass index (BMI) [Ratio] 30.55 kg/m2 Phil Brown DO Work Phone: [facility] 07-20-2024 08:23-0400 Body temperature 97.39 [degF] Phil Brown DO Work Phone: [facility] 07-20-2024 08:23-0400 Body weight 80.74 kg Phil Brown DO Work Phone: [facility] 05-10-2024 11:08-0400 Body height 162.56 cm [facility] 05-10-2024 11:08-0400 Body mass index (BMI) [Ratio] 30.4 kg/m2 [facility] 05-10-2024 11:08-0400 Body weight 80.34 kg [facility] 05-10-2024 11:08-0400 Diastolic blood pressure 84 mm[Hg] [facility] 05-10-2024 11:08-0400 Heart rate 69 /min [facility] 05-10-2024 11:08-0400 Respiratory rate 12 /min [facility] 05-10-2024 11:08-0400 Systolic blood pressure 135 mm[Hg] [facility] 10-28-2023 11:00-0500 Body height 162.56 cm Tereso Ball Other [facility] Other 10-28-2023 11:00-0500 Body mass index (BMI) [Ratio] 30.48 kg/m2 Tereso Ball Other [facility] Other 10-28-2023 11:00-0500 Body weight 80.56 kg Tereso Ball Other [facility] Other 10-28-2023 11:00-0500 Diastolic blood pressure 67 mm[Hg] Tereso Ball Other [facility] Other 10-28-2023 11:00-0500 Respiratory rate 12 /min Tereso Ball Other [facility] Other 10-28-2023 11:00-0500 Systolic blood pressure 127 mm[Hg] Tereso Ball Other [facility] Other 09-16-2023 14:15-0400 Body height 162.56 cm Tereso Ball Other [facility] Other 09-16-2023 14:15-0400 Body mass index (BMI) [Ratio] 30.07 kg/m2 Tereso Ball Other [facility] Other 09-16-2023 14:15-0400 Body weight 79.47 kg Tereso Ball Other [facility] Other 09-16-2023 14:15-0400 Diastolic blood pressure 81 mm[Hg] Tereso Ball Other [facility] Other 09-16-2023 14:15-0400 Respiratory rate 12 /min Tereso Ball Other [facility] Other 09-16-2023 14:15-0400 Systolic blood pressure 182 mm[Hg] Tereso Ball Other [facility] Other 08-25-2023 14:15-0400 Body height 162.56 cm Tereso Ball Other [facility] Other 08-25-2023 14:15-0400 Body mass index (BMI) [Ratio] 29.83 kg/m2 Tereso Ball Other [facility] Other 08-25-2023 14:15-0400 Body weight 78.84 kg Tereso Ball Other [facility] Other 08-25-2023 14:15-0400 Diastolic blood pressure 83 mm[Hg] Tereso Ball Other [facility] Other 08-25-2023 14:15-0400 Respiratory rate 12 /min Tereso Ball Other [facility] Other 08-25-2023 14:15-0400 Systolic blood pressure 153 mm[Hg] Tereso Ball Other [facility] Other 08-12-2023 09:30-0400 Body height 162.56 cm Tereso Ball Other [facility] Other 08-12-2023 09:30-0400 Body mass index (BMI) [Ratio] 29.83 kg/m2 Tereso Ball Other [facility] Other 08-12-2023 09:30-0400 Body weight 78.84 kg Tereso Ball Other [facility] Other 08-12-2023 09:30-0400 Diastolic blood pressure 99 mm[Hg] Tereso Ball Other [facility] Other 08-12-2023 09:30-0400 Respiratory rate 12 /min Tereso Ball Other [facility] Other 08-12-2023 09:30-0400 Systolic blood pressure 174 mm[Hg] Tereso Ball Other [facility] Other 02-19-2023 11:30-0400 Body height 162.56 cm Tereso Ball Other [facility] Other 02-19-2023 11:30-0400 Body mass index (BMI) [Ratio] 30.24 kg/m2 Tereso Ball Other [facility] Other 02-19-2023 11:30-0400 Body weight 79.92 kg Tereso Ball Other [facility] Other 02-19-2023 11:30-0400 Diastolic blood pressure 72 mm[Hg] Tereso Ball Other [facility] Other 02-19-2023 11:30-0400 Respiratory rate 12 /min Tereso Ball Other [facility] Other 02-19-2023 11:30-0400 Systolic blood pressure 118 mm[Hg] Tereso Ball Other [facility] Other Encounters Encounter Date Encounter Type Care Provider Facility Start: 03-02-2025 End: 03-02-2025 Bamboo flowsjanay Auguste MD Work Phone: [facility] Start: 03-02-2025 End: 03-02-2025 Bammisbaho flowsjanay Auguste MD Work Phone: [facility] Start: 03-02-2025 End: 03-02-2025 Office outpatient visit 15 minutes Luisa Auguste MD Work Phone: [facility] Comment on above: Hymenoptera allergy (Primary Dx); Chronic rhinitis Start: 03-02-2025 End: 03-02-2025 ambulatory LUISA AUGUSTE Not Available Start: 02-01-2025 End: 02-01-2025 ambulatory [facility] Work Phone: Start: 02-01-2025 End: 02-01-2025 Patient encounter procedure [facility] Work Phone: Start: 12-28-2024 End: 12-28-2024 Patient encounter procedure Phil Ryan DO Work Phone: [facility] Comment on above: Right knee pain, uns pecified chronicity (Primary Dx); Right shoulder pain, unspecified chronicity Start: 12-28-2024 End: 12-28-2024 ambulatory PHIL RYAN Not Available Start: 12-01-2024 End: 12-10-2024 Telephone encounter Luisa Auguste MD Work Phone: [facility] Start: 10-28-2024 End: 10-28-2024 Bamboo flowsjanay Auguste MD Work Phone: [facility] Start: 10-28-2024 End: 10-28-2024 Bammisbaho flowsjanay Auguste MD Work Phone: [facility] Start: 10-28-2024 End: 10-28-2024 Office outpatient new 30 minutes Luisa Auguste MD Work Phone: [facility] Comment on above: Hymenoptera allergy (Primary Dx); Anaphylaxis, initial encounter Start: 10-28-2024 End: 10-28-2024 ambulatory LUISA AUGUSTE Not Available Start: 10-25-2024 End: 11-01-2024 Telephone encounter Geena Vasquez OT Work Phone: [facility] Comment on above: OT Initial Eval (Tri ed to contact re: receiving another OT referral from Dr. Ryan; this one is for carpal tunnel R wrist / Trigger R finger. Requested a call back to schedule.) Start: 10-20-2024 End: 10-20-2024 Telephone encounter Phil Ryan DO Work Phone: [facility] Comment on above: OT Start: 10-12-2024 End: 10-12-2024 Patient encounter procedure Phil Ryan DO Work Phone: [facility] Comment on above: S/P carpal tunnel re lease (Primary Dx) Start: 10-12-2024 End: 10-12-2024 ambulatory PHIL A WICHO Not Available Start: 10-11-2024 End: 10-11-2024 ambulatory [facility] Work Phone: Start: 10-11-2024 End: 10-11-2024 Patient encounter procedure [facility] Work Phone: Start: 09-21-2024 End: 09-21-2024 Bamboo flowsheet Geena Vasquez OT Work Phone: [facility] Start: 09-21-2024 End: 09-21-2024 Bamboo flowsheet Geena Vasquez OT Work Phone: [facility] Start: 09-21-2024 End: 09-21-2024 ambulatory Geenanadeen Vasquez OT Work Phone: [facility] Comment on above: Carpal tunnel syndro me of right wrist (Primary Dx); Trigger finger, right middle finger Start: 09-17-2024 End: 09-17-2024 Bamboo flowsheet Geena Citlalichen OT Work Phone: [facility] Start: 09-17-2024 End: 09-17-2024 Bamboo flowsheet Geena Vasquez OT Work Phone: [facility] Start: 09-17-2024 End: 09-17-2024 ambulatory Geena Vasquez OT Work Phone: [facility] Comment on above: Carpal tunnel syndro me of right wrist (Primary Dx); Left hand pain; Left wrist pain; Trigger finger, right middle finger Start: 09-07-2024 End: 09-07-2024 Bamboo flowsheet Geena Vasquez OT Work Phone: [facility] Start: 09-07-2024 End: 09-07-2024 Bamboo flowsheet Geena Vasquez OT Work Phone: [facility] Start: 09-07-2024 End: 09-07-2024 ambulatory Geena Vasquez OT Work Phone: [facility] Comment on above: Carpal tunnel syndro me of right wrist (Primary Dx); Trigger finger, right middle finger Start: 09-03-2024 End: 09-03-2024 Bamboo flowsheet Geena Vasquez OT Work Phone: [facility] Start: 09-03-2024 End: 09-03-2024 Bamboo SkyPowerjanay Vasquez OT Work Phone: [facility] [...] Not Available Start: 08-26-2024 End: 08-26-2024 Bamboo flowsheet Phil Ryan DO Work Phone: [facility] Start: 08-26-2024 End: 08-26-2024 Bamboo flowsheet Phil Ryan DO Work Phone: [facility] Start: 07-27-2024 End: 07-27-2024 ambulatory Grace L Vijay Facility:[facility] Start: 07-20-2024 End: 07-20-2024 Patient encounter procedure Phil Ryan DO Work Phone: [facility] Comment on above: Right shoulder pain, unspecified chronicity (Primary Dx) Start: 07-20-2024 End: 07-20-2024 ambulatory PHIL RYAN Not Available Start: 06-21-2024 ambulatory Grace Vijay Facility: [facility] Start: 06-08-2024 End: 06-08-2024 ambulatory GEENA VASQUEZ Not Available Start: 05-18-2024 End: 05-18-2024 ambulatory GEENA VASQUEZ Not Available Start: 05-10-2024 End: 05-10-2024 ambulatory [facility] Work Phone: Start: 05-10-2024 End: 05-10-2024 Patient encounter procedure [facility] Work Phone: Start: 05-04-2024 End: 05-04-2024 ambulatory GEENA VASQUEZ Not Available Start: 04-27-2024 End: 04-27-2024 ambulatory GEENA VASQUEZ Not Available Start: 04-01-2024 End: 04-01-2024 ambulatory PHIL RYAN Not Available Start: 03-11-2024 End: 03-11-2024 ambulatory PHIL RYAN Not Available Start: 03-05-2024 End: 03-05-2024 ambulatory GEENA VASQUEZ Not Available Start: 01-05-2024 End: 01-05-2024 ambulatory Tereso Haider Other [facility] Other Start: 01-05-2024 Telephone encounter Tereso Haider [facility] Start: 01-04-2024 Chart abstracting Phil rincon DO Work Phone: [facility] Start: 10-28-2023 End: 10-28-2023 ambulatory Tereso Haider Other [facility] Other Start: 10-28-2023 Patient encounter procedure Tereso Ball [facility] Start: 10-09-2023 End: 10-09-2023 ambulatory Tereso Ball Other [facility] Other Start: 10-09-2023 Telephone encounter Tereso Ball [facility] Start: 09-23-2023 End: 09-23-2023 ambulatory Tereso Ball Other [facility] Other Start: 09-23-2023 Telephone encounter Tereso Ball [facility] Start: 09-16-2023 End: 09-16-2023 ambulatory Tereso Ball Other [facility] Other Start: 09-16-2023 Office outpatient vi sit 15 minutes Tereso Ball [facility] Start: 08-26-2023 End: 08-26-2023 ambulatory Tereso Ball Other [facility] Other Start: 08-26-2023 Telephone encounter Tereso Ball [facility] Start: 08-25-2023 End: 08-25-2023 ambulatory Tereso Ball Other [facility] Other Start: 08-25-2023 Office outpatient vi sit 15 minutes Tereso Ball [facility] Start: 08-25-2023 Telephone encounter Tereso Ball [facility] Start: 08-12-2023 End: 08-12-2023 ambulatory Tereso Ball Other [facility] Other Start: 08-12-2023 Office outpatient vi sit 15 minutes Tereso Ball [facility] Start: 08-09-2023 End: 08-09-2023 ambulatory Tereso Ball Other [facility] Other Start: 08-09-2023 Telephone encounter Tereso Haider [facility] Start: 07-29-2023 End: 07-29-2023 ambulatory Tereso Haider Other [facility] Other Start: 07-29-2023 Telephone encounter Tereso Haider [facility] Start: 07-28-2023 End: 07-28-2023 ambulatory Tereso Haider Other [facility] Other Start: 07-28-2023 Telephone encounter Tereso Haider [facility] Start: 05-19-2023 End: 05-19-2023 ambulatory Tereso Haider Other [facility] Other Start: 05-19-2023 Encounter by sean Haider [facility] Start: 05-13-2023 End: 05-13-2023 ambulatory Tereso Haider Other [facility] Other Start: 05-13-2023 Telephone encounter Tereso Haider [facility] Start: 02-19-2023 Office outpatient vi sit 25 minutes Tereso Haider [facility] Start: 02-19-2023 End: 02-20-[address] TERESO HAIDER [facility] Other Start: 12-02-2022 End: 12-03-2022 ambulatory NONE LISTED REQUEST Facility: Start: 09-24-2022 Adult health examination Tereso Haider Other [facility] Other Start: 01-15-2018 End: 01-16-2018 Evaluation and management of inpatient [facility] Start: 01-12-2018 End: 01-17-2018 Ambulatory [facility] Procedures Date Procedure Procedure Detail Performing Clinician Start: 12-28-2024 End: 12-28-2024 Arthrocentesis aspir&/inj major jt/bursa w/o us Phil Ryan DO Work Phone: Start: 12-28-2024 Radiologic examination knee 3 views Phil Ryan DO Work Phone: Start: 08-26-2024 HAND/UPPER EXTREMITY ARTHROCENTESIS Phil Ruperto Ryan DO Work Phone: Start: 07-20-2024 End: 07-20-2024 LARGE JOINT ARTHROCENTESIS Phil Hickey Wicho DO Work Phone: Start: 07-20-2024 Radex shoulder complete minimum 2 views Phil Ruperto Ryan DO Work Phone: Start: 01-16-2018 INITIATE OXYGEN THERAPY PROTOCOL [facility] V[facility]CTOR Start: 01-16-2018 PULSE OXIMETRY, CONTINUOUS [facility]CTOR Start: 01-16-2018 PULSE OXIMETRY, CONTINUOUS [facility] VÍCTOR Start: 01-16-2018 INTAKE AND OUTPUT M[facility]H VÍCTOR Start: 01-16-2018 PULSE OXIMETRY, CONTINUOUS [facility] Start: 01-15-2018 PULSE OXIMETRY, CONTINUOUS [facility]CTOR Start: 01-15-2018 DISCHARGE PATIENT MIS[facility]H VÍCTOR Start: 01-15-2018 DIET GENERAL [facility] Start: 01-15-2018 PULSE OXIMETRY, CONTINUOUS [facility] VÍCTOR Start: 01-15-2018 ACTIVITY TOLERATED [facility] V[facility]CTOR Start: 01-15-2018 AMBULATE PATIENT [facility] VÍCTOR Start: 01-15-2018 ELEVATE HOB [facility] Start: 01-15-2018 INITIATE OXYGEN THERAPY PROTOCOL [facility] VÍCTOR Start: 01-15-2018 INTAKE AND OUTPUT M[facility]H VÍCTOR Start: 01-15-2018 NEURO/VASCULAR CHECKS [facility] Start: 01-15-2018 NURSING COMMUNICATION [facility] Start: 01-15-2018 PLACE CERVICAL COLLAR MIS[facility]H VÍCTOR Start: 01-15-2018 PLACE INTERMITTENT PNEUMATIC COMPRESSION DEVICE MISBAH VÍCTOR Start: 01-15-2018 PULSE OXIMETRY, CONTINUOUS MIS[facility]H VÍCTOR Start: 01-15-2018 WOUND CARE [facility] V[facility]CTOR Start: 01-15-2018 FULL CODE [facility]CTOR Start: 01-15-2018 TELEMETRY MONITORING [facility]CTOR Start: 01-15-2018 VITAL SIGNS [facility] V[facility]CTOR Start: 01-15-2018 ICE TO AFFECTED AREA MIS[facility]H V[facility]CTOR Start: 01-15-2018 PATIENT STATUS (FROM ED OR OR/PROCEDURAL) MIS[facility]H V[facility]CTOR Start: 01-15-2018 TRANSFER PATIENT MISBAH VÍCTOR Start: 01-15-2018 FLUORO FOR SURGICAL PROCEDURES MISBAH VÍCTOR Start: 01-15-2018 PLACE INTERMITTENT PNEUMATIC COMPRESSION DEVICE MISBAH VÍCTOR Start: 01-12-2018 APTT MISBAH VÍCTOR Start: 01-12-2018 BASIC METABOLIC PANEL MIS[facility]H V[facility]CTOR Start: 01-12-2018 CBC [facility]CTOR Start: 01-12-2018 Microscopic urinalysis M[facility]H V[facility]CTOR Start: 01-12-2018 PROTIME-INR M[facility]CTOR Start: 01-12-2018 URINE CULTURE MIS[facility]H V[facility]CTOR Start: 01-12-2018 URINE RT REFLEX TO CULTURE [facility]H [facility]CTOR Start: 01-12-2018 TYPE AND SCREEN MIS[facility]H VÍCTOR Start: 01-12-2018 MRSA SCREENING CULTURE ONLY [facility]CTOR Start: 01-12-2018 EKG 12-LEAD MISBAH VÍCTOR Start: 11-27-2016 Screening for malignant neoplasm [...] Treatment Date Care Activity Detail Author Start: 07-25-2025 Influenza vaccination Influenz a Vaccine (Season Ended) [facility] Start: 03-02-2025 End: 03-02-2025 Patient encounter procedure 03/02/2025 9:00 AM EDT Office Visit [facility] [address] [place] [address] Luisa Auguste MD [address] [place] [address] Arrived [facility] Comment on above: Arrived Start: 01-17-2025 End: 01-17-2025 Patient encounter procedure 01/17/2025 9:00 AM EST Office Visit [facility] [address] [place] [address] Luisa Auguset MD [address] [address] [place] [address] [facility] Start: 01-06-2025 End: 01-06-2025 Patient encounter procedure 01/06/2025 10:00 AM EST Office Visit [facility] [address] [place] [address] Luisa Auguste MD [address] [place] [address] [facility] Start: 12-21-2024 End: 12-21-2024 Patient encounter procedure 12/21/2024 2:15 PM EST Office Visit [facility] [address] [place] [phone] Phil Ryan DO [address] [place] [place] [address] [facility] Start: 10-28-2024 End: 10-28-2025 Honeybee IgE Honeybee IgE Lab Routine Anaphylaxis, initial encounter Expected: 10/28/2024 (Approximate), Expires: 10/28/2025 [facility] Comment on above: Expected: 10/28/2024 (Approximate), Expires: 10/28/2025 Start: 10-28-2024 End: 10-28-2025 Hornet, white-faced IgE Hornet, white-faced IgE Lab Routine Anaphylaxis, initial encounter Expected: 10/28/2024 (Approximate), Expires: 10/28/2025 [facility] Comment on above: Expected: 10/28/2024 (Approximate), Expires: 10/28/2025 Start: 10-28-2024 End: 10-28-2025 Hornet, yellow IgE Hornet, yellow IgE Lab Routine Anaphylaxis, initial encounter Expected: 10/28/2024 (Approximate), Expires: 10/28/2025 [facility] Comment on above: Expected: 10/28/2024 (Approximate), Expires: 10/28/2025 Start: 10-28-2024 End: 10-28-2025 Tryptase Tryptase Lab Routine Anaphylaxis, initial encounter Expected: 10/28/2024 (Approximate), Expires: 10/28/2025 [facility] Work Phone: Comment on above: Expected: 10/28/2024 (Approximate), Expires: 10/28/2025 Start: 10-28-2024 End: 10-28-2025 Wasp, paper IgE Wasp, paper IgE Lab Routine Anaphylaxis, initial encounter Expected: 10/28/2024 (Approximate), Expires: 10/28/2025 [facility] Comment on above: Expected: 10/28/2024 (Approximate), Expires: 10/28/2025 Start: 10-28-2024 End: 10-28-2025 Yellow jacket IgE Yellow jacket IgE Lab Routine Anaphylaxis, initial encounter Expected: 10/28/2024 (Approximate), Expires: 10/28/2025 [facility] Comment on above: Expected: 10/28/2024 (Approximate), Expires: 10/28/2025 Start: 10-28-2024 End: 10-28-2024 Patient encounter procedure [facility] Comment on above: Arrived Start: 10-11-2024 End: 10-11-2024 Patient encounter procedure 10/11/2024 10:00 AM EST Office Visit [facility] [address] [phone] Luisa Auguste MD [address] [address] [facility] Start: 10-07-2024 End: 10-07-2024 Patient encounter procedure 10/07/2024 1:00 PM EST Office Visit [facility] [address] [facility] [place] [phone] Phil Ryan DO [address] [place] [address] [facility] Start: 10-05-2024 End: 10-05-2024 ambulatory 10/05/2024 10:00 AM EST Treatment [facility] [address] [place] [address] Geena Vasquez, OT [address] [place] [address] [facility] Start: 09-21-2024 End: 09-21-2024 ambulatory [facility] Comment on above: Arrived Start: 09-17-2024 End: 09-17-2024 ambulatory [facility] Comment on above: Arrived Start: 09-07-2024 End: 09-07-2024 ambulatory [facility] Comment on above: Arrived Start: 09-03-2024 End: 09-03-2024 ambulatory 09/03/2024 9:00 AM EDT Evaluation [facility] [address] [place] [phone] Geena Vasquez, OT [address] [place] [address] Left hand pain [facility] Comment on above: Left hand pain Start: 08-26-2024 End: 08-26-2024 Patient encounter procedure 08/26/2024 3:15 PM EDT Office Visit [facility] [address] [place] [phone] Phil Ryan DO [address] [place] [place] [address] Arrived [facility] Comment on above: Arrived Start: 07-25-2024 Influenza vaccination Influenza Vacc ine (#1) [facility] Start: 07-25-2023 Influenza vaccination Influenza Vacc ine (#1) [facility] XR Foot - bilateral 3 Views [facility] XR Knee - bilateral 4 Views [facility] Immunizations Immunization Date Immunization Notes Care Provider Fa cility 10-28-2023 influenza virus vaccine, unspecified formulation [facility] 10-28-2023 influenza, high dose seasonal, preservative-free Tereso Haider Other [facility] Other 09-24-2022 influenza virus vaccine, split virus (incl. purified surface antigen) Tereso Haider Other [facility] Other 09-24-2022 influenza virus vaccine, unspecified formulation Phil Ryan DO Work Phone: [facility] 08-21-2021 COVID-19 Vaccine Pfizer - Documentation Purposes Only Tereso Haider Other [facility] 08-21-2021 influenza virus vaccine, split virus (incl. purified surface antigen) Tereso Haider Other [facility] Other 08-21-2021 influenza virus vaccine, unspecified formulation [facility] 01-21-2021 COVID-19 Vaccine Pfizer - Documentation Purposes Only Tereso Haider Other [facility] 12-31-2020 COVID-19 Vaccine Pfizer - Documentation Purposes Only Tereso Haider Other [facility] 09-14-2020 influenza virus vaccine, split virus (incl. purified surface antigen) Tereso Haider Other [facility] Other 09-14-2020 influenza virus vaccine, unspecified formulation [facility] 04-22-2019 pneumococcal polysaccharide vaccine, 23 valent Tereso Haider Other [facility] 01-18-2019 influenza virus vaccine, split virus (incl. purified surface antigen) Tereso Haider Other [facility] Other 01-18-2019 influenza virus vaccine, unspecified formulation [facility] 12-17-2016 pneumococcal polysaccharide vaccine, 23 valent Tereso Haider Other [facility] 11-27-2016 pneumococcal conjugate vaccine, 13 valent Tereso Haider Other [facility] 11-27-2016 pneumococcal Conjugate, unspecified formulation; Translations: [Need for prophylactic vaccination against Streptococcus pneumoniae (pneumococcus)] Tereso Haider Other [facility] Other 09-30-2012 diphtheria, tetanus toxoids and acellular pertussis vaccine, unspecified formulation Tereso Haider Other [facility] 09-02-2012 tetanus and diphtheria toxoids, adsorbed, preservative free, for adult use (5 Lf of tetanus toxoid and 2 Lf of diphtheria toxoid) Tereso Haider Other [facility] NEGATED: Highlighted row has not occurred! 7 influenza, seasonal, injectable Patient Objection Tereso Haider Other [facility] Other Payers Date Payer Category Payer Private Health Insurance [employer] Or mber [id number] 2022 Unknown DONNA THOMPSON [id number] 2022-Present [address] [place] [address] [id number] 2017 Medicare [id number] 2012 Medicare [id number] 1959 Medicare [id number] [id number] 1959 Self-pay [id number] 1959 Unknown [id number] 2.16.840.1.050228.19 1947 Unknown [id number] 2.16.840.1.054514.3.579.2 .593 1947 Unknown [id number] 2.16.840.1.683996.3.579.2 .727 1947 Unknown [id number] 2.16.840.1.619018.3.579.2 .1259 1947 Unknown [id number] 2.16.840.1.186277.3.579.2 .1259 1947 Unknown [id number] 2.16.840.1.009775.3.579.2 .1259 1947 Unknown [id number] 2.16.840.1.104318.3.579.2 .125 1947 Unknown [id number] 2.16.840.1.103672.3.579.2 .1259 1947 Unknown [id number] 2.16840.1.194721.3.579.2 .125 1947 Unknown [id number] 2.16.840.1.093082.3.579.2 .1259 1947 Unknown [id number] 2.16.840.1.790662.3.579.2 .1259 1947 Unknown [id number] 2.16.840.1.435852.3.579.2 .1259 1947 Unknown [id number] 2.16840.1.486360.3.579.2 .1259 1947 Unknown [id number] 2.16.840.1.276172.3.579.2 .1259 1947 Unknown [id number] 2.16.840.1.739821.3.579.2 .1259 1947 Unknown [id number] 2.16.840.1.305402.3.579.2 .1259 1947 Unknown [id number] 2.16.840.1.627564.3.579.2 .1259 1947 Unknown [id number] 2.16.840.1.747545.3.579.2 .1258 1947 Unknown [id number] 2.16.840.1.782487.3.579.2 .1258 1947 Unknown [id number] 2.16.840.1.296641.3.579.2 .1258 1947 Unknown [id number] 2.16.840.1.284705.3.579.2 .9 1947 Unknown [id number] 2.16.840.1.123811.3.579.2 .1259 Self-pay [id number] Unknown [id number] 2.16.840.1.768800.3.579.2 .593 Unknown [facility] SINGER/GISSELLE [id number] Social History Date Type Detail Facility Unknown if ever smoked [facility] Other Start: 07-01-2023 End: 03-02-2025 Sex Assigned At [facility] Other Start: 05-29-2023 End: 07-20-2024 Tobacco smoking status [place] Ex-smoker [facility] Start: 04-24-1966 End: 07-28-2002 History of tobacco use Current smoker [facility] Start: 04-24-1966 End: 07-28-2002 History of tobacco use Cigarette Smoker [facility] Start: 05-29-2023 End: 03-02-2025 Cigarettes smoked current (pack per day) - Reported 0.3 [facility] Start: 05-29-2023 End: 07-20-2024 Tobacco use and exposure Smokeless tobacco non-user [facility] Start: 07-01-2023 Alcohol intake Current drinker of alcohol (finding) [facility] Start: 05-29-2023 Tobacco Comment Smoked 3 or 4 cigarettes a day, quit for 21 years. [facility] Start: 1945 Sex Assigned At Female [facility] Start: 05-22-2023 Gender identity Identifies as female gender (finding) [facility] Start: 05-22-2023 Sexual orientation Heterosexual (finding) [facility] Start: 07-20-2024 End: 03-02-2025 Alcoholic beverage intake Ex-drinker (finding) [facility] Start: 03-11-2024 Alcohol Comment No alcohol in 6 months [facility] Start: 10-11-2024 End: 02-01-2025 Sex Female (finding) [facility] Clinical Notes 02-19-2023 to 03-02-2025 Luisa Auguste MD - 03/02/2025 9:00 AM PEMA [facility] - 12/28/2024 4:00 PM Ashley Ryan DO - 12/28/2024 4:00 PM ESTTelephone Encounter - Tanya Garcia - 11/01/2024 11:03 AM EST Note Date & Type Note Facility 03-02-2025 History of Presen t illness Narrative Tracey Haider returns to the office today For follow-up assessment of her Hymenoptera allergy and rhinitis symptoms. She states that she has not had any stings since we last saw her in the office. We reviewed the results of her ImmunoCAP testing which were positive for all insects except for honey bee. She also reports having episodes of nasal congestion rhinorrhea and sneezing that she believes are worse with cat exposure. EXAM The patient appears comfortable in the office today. Lungs are clear to auscultation bilaterally. The oral mucosa is pink and healthy without any lesions or ulcers. The palate elevates in the midline. The nasal mucosa is pink and healthy. There is no epistaxis mucopus or nasal polyposis noted. The nasal septum is approximately in the midline. The skin is clear of any lesions, excoriations, or erythema. Skin testing in the office today was performed under direct physician supervision for common environmental allergens including cat, dog, mouse, dust mite, mold spores, tree, grass, weed, and ragweed and all of these tests were negative in the setting of a positive histamine control. I provided reassurance for the patient that no allergen avoidance measures are necessary for environmental allergens. IMPRESSION: hymenoptera allergy - I suggested that the patient perform bee avoidance measures by avoiding bright colors, perfume, eating, and sweet drinks when outdoors. Skin testing for honeybee in March. Epinephrine on hand. Chronic rhinitis - vasomotor rhinitis - no allergen avoidance needed. Trial of azelastine nasal spray. documented in this encounter [facility] 12-28-2024 History of Presen t illness Narrative Associated Order(s): L Inj/Asp: R knee; L Inj/Asp: R glenohumeral; L Inj/Asp: R subacromial bursa Post-Procedure Diagnose(s): Right knee pain, unspecified chronicity; Right shoulder pain, unspecified chronicity L Inj/Asp: R knee on 12/28/2024 4:35 PM Indications: pain Details: 22 G needle, lateral approach Medications: 32 mg triamcinolone acetonide 32 MG Consent was given by the patient. L Inj/Asp: R glenohumeral on 12/28/2024 4:35 PM Indications: pain Details: 25 G needle Medications: 1 mL betamethasone acetate-betamethasone sodium phosphate 6 (3-3) MG/ML Consent was given by the patient. L Inj/Asp: R subacromial bursa on 12/28/2024 4:36 PM Indications: pain Details: 25 G needle Medications: 1 mL betamethasone acetate-betamethasone sodium phosphate 6 (3-3) MG/ML Consent was given by the patient. Images from the original note were not included. @[email or web address]@ Billie Vicente Caro is a 79 y.o. female who presents for Pain of the Right Knee and Pain of the Right Shoulder HPI: History of Present Illness The patient is a 79-year-old right-hand dominant female who presents today for evaluation of right shoulder and right knee pain. She reports that her right shoulder continues to function adequately, with minimal discomfort during the day. However, she experiences significant pain at night. She also notes a persistent small bump on the top of her shoulder, which she believes has decreased in size following the cortisone injection. She received a cortisone injection in the right shoulder on 07/20/2024. She recalls a severe episode of right knee pain approximately one month ago, which was so intense that it caused her to limp. Concurrently, she experienced pain in her feet and hands, reminiscent of her previous arthritic symptoms. She describes the pain as located both medially and laterally at the knee. Despite these symptoms, she is able to walk without difficulty. She reports no swelling in the knee. She did not seek medical attention during the flare-up, opting instead to manage the pain through walking and other activities. She has a pool at home but is unable to use it due to the winter season. Supplemental Information She has a history of intermittent achiness since her youth, diagnosed as fibromyalgia. The recent episode of severe pain lasted for about four weeks, significantly impacting her quality of life and leading to depression. The pain resolved as abruptly as it began. Currently, she experiences occasional mild aches. She has not been tested for rheumatoid conditions and reports no family history of such. SUBJECTIVE: MEDICATIONS: Current Outpatient Medications Medication Instructions celecoxib (CELEBREX) 100 mg, Oral, 2 times daily, Take as needed for pain EPINEPHrine (EPIPEN) 0.3 mg, Injection, As needed, Call 911 after use. glucosamine-chondroitin 500-400 MG tablet 1 tablet, 3 times daily lisinopril-hydroCHLOROthiazide 20-12.5 MG tablet lisinopril 10 mg, Every 24 hours Multiple Vitamin (multivitamin) tablet 1 tablet, Daily zolpidem (AMBIEN) 2.5 mg, Daily PRN ALLERGIES: Allergies Allergen Reactions Yellow Jacket Venom Anaphylaxis SURGICAL HISTORY: Past Surgical History: Procedure Laterality Date CARPAL TUNNEL RELEASE Left 03/22/2024 CARPAL TUNNEL RELEASE Right 08/16/2024 [facility] CHOLECYSTECTOMY 1993 HYSTERECTOMY 1990 LUMBAR DISCECTOMY OTHER SURGICAL HISTORY 01/15/2018 ACDF TRIGGER FINGER RELEASE Right 08/16/2024 FAMILY HISTORY: Family History Problem Relation Name Age of Onset Cancer Mother Kerry Nancy Diabetes Mother Kerry Nancy Hyperlipidemia Mother Kerry Nancy Heart disease Father SOCIAL HISTORY: Social History Tobacco Use Smoking status: Former Current packs/day: 0.00 Average packs/day: 0.3 packs/day for 36.3 years (9.1 ttl pk-yrs) Types: Cigarettes Start date: 04/24/1966 Quit date: 07/28/2002 Years since quittin.4 Smokeless tobacco: Never Tobacco comments: Smoked 3 or 4 cigarettes a day, quit for 21 years. Vaping Use Vaping status: Never Used Substance Use Topics Alcohol use: Not Currently Alcohol/week: 2.0 standard drinks of alcohol Comment: No alcohol in 6 months Drug use: Never Depression: Not on file REVIEW OF SYMPTOMS: Review of Systems The review of systems, history and current medications list are all reviewed today. OBJECTIVE: Visit Vitals Ht 5' 4 Wt 182 lb BMI 31.24 kg/m OB Status Unknown Smoking Status Former BSA 1.93 m Physical Exam Alert and oriented, no acute distress. Mood and affect are appropriate. Ambulating independently. Gait is nonantalgic. Alert and oriented, no acute distress. Mood and affect are appropriate. RIGHT SHOULDER The skin is warm, dry and intact. soft tissue mass over the AC joint not as prominent as previous. She can raise her arm overhead. She has full, passive forward flexion, abduction, internal and external rotation. There is mild weakness with supraspinatus stress test. No weakness with external rotation and resisted supination. Negative belly-press test. Negative bear-hug test. Negative Hornblower. Positive Whipple. Positive Ramos and Neer impingement. Positive cross-arm adduction. No instability. Tender AC joint. RIGHT KNEE ROM 0-120. Tender medial and lateral joint lines. No effusion. Ligaments stable. Ortho Exam Results Three views, bilateral PA weight-bearing, sunrise, lateral of the right knee(s) taken today and saved to the permanent medical record are reviewed. Medial and lateral joint spaces preserved. Moderate PF arthritis. ASSESSMENT AND PLAN: I reviewed the history, physical exam, diagnostic studies, and diagnosis with the patient. Assessment & Plan 1. Rotator cuff tear, AC joint arthritis, right shoulder The patient reports that the pain in her right shoulder is primarily bothersome at night. She received a cortisone injection in the right shoulder on 07/20/2024, which helped reduce the swelling and pain. A cortisone injection will be administered to the right shoulder today to help alleviate the symptoms. A limited ultrasound examination of the right shoulder was performed. The patient's hand was placed in the lap in the supinated position. The biceps tendon, subscapularis, and pectoralis major were visualized at the anterior aspect of the shoulder. The acromioclavicular joint was then identified at the superior aspect of the shoulder. The patient's hand was then placed behind the back near the waist. The probe was moved to the lateral aspect of the shoulder and the supraspinatus and infraspinatus were visualized in the subacromial space. The anterolateral aspect of the shoulder was then prepped with alcohol and betadine. Using ultrasound guidance, a 25-gauge 1-1/2 inch needle was inserted into the subacromial space adjacent to the supraspinatus. A mixture of 1 mL of 1% plain lidocaine and 1 mL of betamethasone was then injected. The patient's arm was then placed back at the side and the probe was moved to the superior aspect of the shoulder. The AC joint was visualized. The area was prepped with alcohol and betadine. Using ultrasound guidance, a new 25 gauge 1-1/2 inch needle was inserted into the AC joint from a lateral approach. A mixture of 1 mL of 1% plain lidocaine and 1 mL of betamethasone was then injected. The patient tolerated this well. A Band-Aid was applied. The patient was instructed to ice the shoulder and to watch for any signs of infection including redness, increased pain, drainage from the injection site, fever, chills, etc. The patient was instructed to call the office if he/she experiences any adverse reaction to the injection. 2. Degenerative osteoarthrosis, right knee I discussed the natural history of degenerative osteoarthrosis and used the knee model as a visual aid during the discussion. I explained the importance of maintaining a healthy weight as well as the benefits of maximizing the strength, stability, and range of motion of the affected joint. An anti-inflammatory medication will be prescribed for use during flare-ups. Zilretta will be administered today to help manage the arthritis. After informed consent and using sterile technique, the superolateral aspect of the right knee(s) was prepped with alcohol and Betadine. The skin was anesthetized with ethyl chloride and the knee was then injected with 5 mL Zilretta with a 22-gauge 1 1/2 inch needle. The patient tolerated this well. A Band-Aid was applied. The patient was instructed to ice the knee and to watch for any signs of infection including redness, increased pain in the knee, drainage from the injection site, fever, chills, etc. The patient was instructed to call the office if he/she experiences any adverse reaction from the injection. The patient would like to leave follow up to his/her own discretion. A total of 30 to 39 minutes was spent on this patient encounter which included chart review, check in, nurse triage, history taking, physical examination, diagnostic study review, patient counseling and discussion, entering information into the patient's medical record, and coordinating patient care. Diagnoses and all orders for this visit: Right knee pain, unspecified chronicity - XR knee 3 views right - celecoxib (CeleBREX) 100 MG capsule; Take 1 capsule (100 mg) by mouth in the morning and 1 capsule (100 mg) before bedtime. Take as needed for pain. - L Inj/Asp: R knee Right shoulder pain, unspecified chronicity - L Inj/Asp: R glenohumeral - L Inj/Asp: R subacromial bursa Phil Ryan D.O. Attestation This note was created using voice recognition through [employer]. documented in this encounter [facility] 11-01-2024 Telephone encount er Note Received no attempt of being contacted. [facility] 11-01-2024 Miscellaneous Notes Formattin g of this note might be different from the original. Received no attempt of being contacted. documented in this encounter [facility] 10-28-2024 History of Presen t illness Narrative Tracey Haider is a very pleasant 79 y.o. year old female who comes to the office today with the chief complaint of bee sting. She was stung by a bee on Aug 082022 on neck, arms, and torso when some bees got under her blouse which she took off outside. She got about 8 stings at about 2:30 while she was doing yardwork. The bees came up out of a arechiga. She had no symptoms for about 90 minutes and then she layed down for a nap and felt like she had tongue swelling so she went to [place] [facility] and was given epinephrine pen and steroids and was admitted for 24 hours under observation and had no other symptoms at that time. Her BP and pulse were high at that time. She had never had a sting reaction before. She has epinephrine pen on hand currently. EXAM The patient appears comfortable in the office today. Lungs are clear to auscultation bilaterally. The oral mucosa is pink and healthy without any lesions or ulcers. The palate elevates in the midline. The nasal mucosa is pink and healthy. There is no epistaxis mucopus or nasal polyposis noted. The nasal septum is approximately in the midline. The skin is clear of any lesions, excoriations, or erythema. IMPRESSION: Hymenoptera allergy - We agreed she would practice reasonable bee sting avoidance measures in the home environment and I reviewed these with her in detail. I suggested she obtain ImmunoCAP testing for Hymenoptera have epinephrine on hand at all times and follow-up on January 06 to perform skin testing to Hymenoptera. documented in this encounter [facility] 10-20-2024 Telephone [facility] er Note Billie called and was requesting another order to be sent to [facility] for more OT. Her script was up and she [facility] would order more if needed. RMF trigger/ R CTR 08/16/24 TSCNCO. [facility] 10-20-2024 Miscellaneous Notes Formattin g of this note might be different from the original. Billie called and was requesting another order to be sent to [facility] for more OT. Her script was up and she JAB would order more if needed. RMF trigger/ R CTR 08/16/24 TSCNCO. documented in this encounter [facility] 10-12-2024 History of Presen t illness Narrative Images from the original note were not included. @TILA@ Billie Vicente Caro is a 79 y.o. female who presents [...] completely disappeared. She will be attending the [facility] [employer] football game this weekend. SUBJECTIVE: MEDICATIONS: Current [...] slight flexion contracture. SILT all digits, good automatic quilling machine operator strength. Hand well perfused Results ASSESSMENT AND [...] note was created using voice recognition through [employer]. documented in this encounter [facility] 09-21-2024 History of Presen t [...] tasks at discharge. documented in this encounter [facility] 09-17-2024 History of Presen t [...] tasks at discharge. documented in this encounter [facility] 09-07-2024 History of Presen t [...] tasks at discharge. documented in this encounter [facility] 09-03-2024 History of Presen t [...] s/p R CTR and TFR of the F on 08/16/2024. Pt reports general stiffness and [...] with all self-care and functional mobility. 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 Precautions: CTR/ and TF release [...] 4+/5. Supination: 4+/5. Strength additional comments: R automatic quilling machine operator strength: 30# LP: 11# L automatic quilling machine operator strength: 40# LP: 10# Treatment: Education: HEP [...] for light strengthening, pain/scar management at discharge. [facility] Goals: PRWHE Pain Score < 5/50 ( IE: 23/50) PRWHE Functional Score < 10/100( IE: 36/100) Increase R wrist strength to 5/5 in order to complete all I/ADL tasks at discharge. Pt to increase automatic quilling machine operator strength by 10# and LP by 2# [...] sign below. Date: documented in this encounter [facility] 08-26-2024 History of Presen t illness Narrative Associated Order(s): Hand / UE Inj/Asp Post-Procedure Diagnose(s): Left hand pain Hand / UE Inj/Asp for trigger finger on 08/26/2024 4:30 PM Indications: pain Details: 25 G needle Medications: 0.5 mL betamethasone acetate-betamethasone sodium phosphate 6 (3-3) MG/ML Images from the original note were not included. @ENCDATE@ Billie Cinthia Haider is a 79 y.o. female who presents for Post-op of the Right Middle Finger HPI: History of Present Illness The patient is 10 days s/p right carpal tunnel release and trigger digit release to the [facility] (DOS 08/16/2024). She reports that her finger [...] for hand therapy with Geena Vasquez at [facility] was provided. The patient can start therapy immediately, which will include treatments for her scars. 2. Trigger finger of the left hand. The patient has a trigger finger on her left hand, which sometimes limits her ability to make a full fist. An injection was recommended to potentially alleviate the symptoms and prevent worsening. The injection will be administered by the physician family service assistant. The skin overlying the A1 kaleb [...] The injection was administered by our physician family service assistant, Luisa Zamudio PA-C, under my direct supervision. Follow-up Return in 6 weeks for follow up. Diagnoses and all orders for this visit: Left hand pain - Hand / UE Inj/Asp - Ambulatory referral to Occupational Therapy; Future Phil Ryan D.O. Attestation This note was created using voice recognition through [employer]. documented in this encounter [facility] 07-20-2024 History of Presen t illness Narrative Associated Order(s): L Inj/Asp; L Inj/Asp Post-Procedure Diagnose(s): Right shoulder pain, unspecified chronicity L Inj/Asp on 07/20/2024 10:39 AM Indications: pain Details: 25 G needle, ultrasound-guided Medications: 1 mL betamethasone acetate-betamethasone sodium phosphate 6 (3-3) MG/ML L Inj/Asp on 07/20/2024 10:39 AM Indications: pain Details: 25 G needle, ultrasound-guided Medications: 1 mL betamethasone acetate-betamethasone sodium phosphate 6 (3-3) MG/ML Images from the original note were not included. @TILA@ Billie Vicente Caro is a 79 y.o. female who presents for Follow-up of the Right Shoulder HPI: History of Present Illness The patient is a 79-year-old hsgsz-fchu-cyukmyte female who presents for evaluation of her right shoulder. She is requesting a cortisone injection. She previously received cortisone injections into the shoulder on 03/11/2024 and 07/01/2023. An MRI of her shoulder performed on 06/24/2023 showed a tear of the rotator cuff. She elected to continue with conservative treatment. She is uncertain if her current discomfort is due to her rotator cuff, as the pain she experiences now is different. She suspects it might be related to the mass over her AC joint. The pain does not radiate down her arm as it did previously. She experiences tenderness when pressure is applied to the area, such as when wearing a bra or pushing on it throughout the day. Her range of motion remains unaffected. The pain is mild during the day but intensifies at night. She also reports numbness in her right hand, which is less painful than her left was prior to surgery. She has difficulty bending both of her middle fingers and struggles with dexterity. She notes swelling in her hands. She has not undergone any nerve tests. She recalls an incident from her childhood where she injured her right middle finger while playing volleyball. She underwent surgery for carpal tunnel syndrome, which alleviated the pain in two of her fingers, but the middle finger on the left hand remains problematic. She also mentions having arthritis in other parts of her body, including her thumb joint, which is not currently causing her pain. She is status post left carpal tunnel release on 03/22/2024. SUBJECTIVE: MEDICATIONS: Current Outpatient Medications Medication Instructions glucosamine-chondroitin 500-400 MG tablet 1 tablet, Oral, 3 times daily lisinopril-hydroCHLOROthiazide 20-12.5 MG tablet lisinopril 10 mg, Oral, Every 24 hours Multiple Vitamin (multivitamin) tablet 1 tablet, Oral, Daily zolpidem (AMBIEN) 2.5 mg, Oral, Daily PRN ALLERGIES: No Known Allergies SURGICAL HISTORY: Past Surgical History: Procedure Laterality Date CARPAL TUNNEL RELEASE Left 03/22/2024 CHOLECYSTECTOMY 1994 HYSTERECTOMY 1990 LUMBAR DISCECTOMY OTHER SURGICAL HISTORY 01/15/2018 ACDF FAMILY HISTORY: Family History Problem Relation Name Age of Onset Cancer Mother Kerry Cruz Diabetes Mother Kerryarley Cruz Hyperlipidemia Mother Kerry Cruz Heart disease Father SOCIAL HISTORY: Social History Tobacco Use Smoking status: Former Current packs/day: 0.00 Average packs/day: 0.3 packs/day for 36.3 years (9.1 ttl pk-yrs) Types: Cigarettes Start date: 04/24/1966 Quit date: 07/28/2002 Years since quittin.9 Smokeless tobacco: Never Tobacco comments: Smoked 3 or 4 cigarettes a day, quit for 21 years. Vaping Use Vaping status: Never Used Substance Use Topics Alcohol use: Not Currently Alcohol/week: 2.0 standard drinks of alcohol Comment: No alcohol in 6 months Drug use: Never Depression: Not on file REVIEW OF SYMPTOMS: Review of Systems The review of systems, history and current medications list are all reviewed today. OBJECTIVE: Visit Vitals Temp 97.4 F Ht 5' 4 Wt 178 lb BMI 30.55 kg/m OB Status Unknown Smoking Status Former BSA 1.91 m Physical Exam Alert and oriented, no acute distress. Mood and affect are appropriate. RIGHT SHOULDER The skin is warm, dry and intact. soft tissue mass over the AC joint not as prominent as previous. She can raise her arm overhead. She has full, passive forward flexion, abduction, internal and external rotation. There is mild weakness with supraspinatus stress test. No weakness with external rotation and resisted supination. Negative belly-press test. Negative bear-hug test. Negative Hornblower. Positive Whipple. Positive Ramos and Neer impingement. Positive cross-arm adduction. No instability. Tender AC joint. RIGHT HAND The skin is warm, dry and intact. There is no swelling, no erythema, no ecchymosis. No atrophy of the thenar/hypothenar eminences and first dorsal webspace. The patient has full range of motion of all of the digits. No pain with flexion and extension of the wrist. The patient is able to make an OK sign, cross the fingers, and extend the thumb against resistance. There is brisk capillary refill and a palpable radial pulse. Positive carpal compression test. Tender A1 kaleb middle finger. Able to reproduce triggering of middle finger. LEFT HAND Incision benign and healed. Makes fist but has stiffness with middle finger. Tender A1 kaleb middle finger, unable to reproduce triggering. Hand well perfused. Ortho Exam Results Imaging 4 views right shoulder, Grashey/Zanca/outlet/axillary, taken today and saved to the permanent medical record are reviewed. Calcification adjacent to lesser tuberosity with smaller calcification adjacent to greater tuberosity medially, ACI WNL. GH joint space preserved. Signifcant AC arthritis, type 2 acromion ASSESSMENT AND PLAN: I reviewed the history, physical exam, diagnostic studies, and diagnosis with the patient. Assessment & Plan Rotator cuff tear, AC joint arthritis, right shoulder A limited ultrasound examination of the right shoulder was performed. The patient's hand was placed in the lap in the supinated position. The biceps tendon, subscapularis, and pectoralis major were visualized at the anterior aspect of the shoulder. The acromioclavicular joint was then identified at the superior aspect of the shoulder. The patient's hand was then placed behind the back near the waist. The probe was moved to the lateral aspect of the shoulder and the supraspinatus and infraspinatus were visualized in the subacromial space. The anterolateral aspect of the shoulder was then prepped with alcohol and betadine. Using ultrasound guidance, a 25-gauge 1-1/2 inch needle was inserted into the subacromial space adjacent to the supraspinatus. A mixture of 1 mL of 1% plain lidocaine and 1 mL of betamethasone was then injected. The patient's arm was then placed back at the side and the probe was moved to the superior aspect of the shoulder. The AC joint was visualized. The area was prepped with alcohol and betadine. Using ultrasound guidance, a new 25 gauge 1-1/2 inch needle was inserted into the AC joint from a lateral approach. A mixture of 1 mL of 1% plain lidocaine and 1 mL of betamethasone was then injected. The patient tolerated this well. A Band-Aid was applied. The patient was instructed to ice the shoulder and to watch for any signs of infection including redness, increased pain, drainage from the injection site, fever, chills, etc. The patient was instructed to call the office if he/she experiences any adverse reaction to the injection. 2. Right middle finger trigger finger. 3. Right carpal tunnel syndrome. She reports numbness and decreased dexterity in her right hand, similar to her previous left hand symptoms but less painful. We will proceed with trigger digit release to the right middle finger with right carpal tunnel release. Surgery will be performed under local anesthetic only. I reviewed the risks, benefits, complications, and expectations. The risks include, but are not limited to, the risk of infection, the risk of neurovascular injury. At no time were any guarantees implied or stated. Informed consent was obtained. 4. Left hand trigger finger. She has a trigger finger in her left hand that is not locking but causing limited movement. An injection will be administered during the procedure for her right hand to assess its effectiveness. A total of 30 to 39 minutes was spent on this patient encounter which included chart review, check in, nurse triage, history taking, physical examination, diagnostic study review, patient counseling and discussion, entering information into the patient's medical record, and coordinating patient care. Diagnoses and all orders for this visit: Right shoulder pain, unspecified chronicity - XR shoulder 2+ views right - L Inj/Asp - L Inj/Asp Phil Ryan D.O. Attestation This note was created using voice recognition through [employer]. documented in this encounter [facility] 01-05-2024 Evaluation note Encounter Date Diagnosis Assessment Notes Dec, Primary insomnia (ICD-10 - F51.01) [facility] Other 12-05-2023 Evaluation note* Encounter Date Diagnosis [...] 2/3 readings w/ goal < 135/85 Oct, LAYSSA (generalized anxiety disorder) (ICD-10 - F41.1) Healthy [...] index [BMI] 30.0-30.9, adult (ICD-10 - Z68.30) [facility] Other 10-31-2023 Evaluation note* Encounter Date Diagnosis Assessment Notes Treatment Notes Treatment Clinical Notes Aug, ALYSSA (generalized anxiety disorder) (ICD-10 - F41.1) [facility] Other 10-24-2023 Evaluation note* Encounter Date Diagnosis [...] to 4-6 wks to reach maximum benefit [facility] Other 10-02-2023 Evaluation note* Encounter Date Diagnosis Assessment Notes Treatment Notes Treatment Clinical Notes Aug, Tachycardia (ICD-10 - R00.0) [facility] Other 10-02-2023 Evaluation note* Encounter Date Diagnosis [...] F41.1) Healthy diet, exercise and keep active [facility] Other 09-19-2023 Evaluation note* Encounter Date Diagnosis [...] for any further stings w/ systemic reaction [facility] Other 09-05-2023 Evaluation note* Encounter Date Diagnosis Assessment Notes Treatment Notes Treatment Clinical Notes Jul, Primary insomnia (ICD-10 - F51.01) [facility] Other 06-20-2023 Evaluation note* Encounter Date Diagnosis Assessment Notes Treatment Notes Treatment Clinical Notes Apr, Primary insomnia (ICD-10 - F51.01) [facility] Other 03-29-2023 Evaluation note* Encounter Date Diagnosis [...] in remission (ICD-10 - F17.211) Continue abstinence [place] [facility] Other Evaluation noteNo InformationNort [facility] Other Evaluation noteNo assessment information available [facility] Work Phone: Evaluation note* Diagnosis Left hand pain Pain in soft tissues of limb [facility] Diagnosis Left hand pain- Primary Pain in soft tissues of limb Trigger finger, right middle finger Carpal tunnel syndrome of right wrist [facility] Diagnosis Carpal tunnel syndrome of right wrist- Primary Trigger finger, right middle finger documented in [facility] encounter [facility]* Diagnosis Carpal tunnel syndrome of right wrist- Primary Left hand pain Pain in soft tissues of limb Left wrist pain Pain in joint, forearm Trigger finger, right middle finger documented in this encounter [facility]* Diagnosis Carpal tunnel syndrome of right wrist- Primary Trigger finger, right middle finger documented in this encounter [facility]* Diagnosis Onset Date Resolution Status Admit Date Acute bronchitis due to othe r specified organisms acute September 1:23pm Essential hypertension acute No vember 2023 1:23pm Fibromyalgia acute September 1:23pm Knee pain, bilateral acute Nove mber 2023 1:23pm Pain in both feet acute Novembe r 2023 1:23pm 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 documented in this encounter [facility]* Diagnosis Right knee pain, unspecified chronicity- Primary Right shoulder pain, unspecified chronicity documented in this encounter [facility]* Diagnosis 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 Chronic rhinitis documented in this encounter [facility] HealthcareHistory general Narrative - Reported* Type Description Date [...] teresa/bso Hospitalization History hysterectomy Hospitalization History childbirth [facility] Other History [facility]ative - [facility] Other Reason for referral (narrative)* Consultation (Routine) - Authorized Specialty Diagnoses / Procedures Referred By Helena t Referred To Contact Occupational Therapy / Physical Therapy Diagnoses Left hand pain Procedures NV OFFICE/OUTPATIENT NEW HIGH MDM 60 MINUTES Phil Ryan DO [address] [place] [address] Geena Vasquez, OT [address] [place] [address] Referral ID Status Reason Start Date Expiration Date Visits Requested Visits Authorized [id number] Authorized Consult and Treat 08/27/2024 02/23/2025 10 10 * Clinic-Administered Medication (Routine) - Closed Specialty Diagnoses / Procedures Referred By Contac t Referred To Contact Orthopaedic Surgery Diagnoses Left hand pain Procedures Hand / UE Inj/Asp Phil Ryan DO [address] [place] [address] [facility] [address] [place] [address] Referral ID Status Reason Start Date Expiration Date Visits Re quested Visits Authorized [id number] Closed 08/26/2024 02/22/2025 1 1 [facility] Narrative* Consultation (Routine) - Authorized Specialty Diagnoses / Procedures Referred By Contac t Referred To Contact Occupational Therapy / Physical Therapy Diagnoses Left hand pain Procedures NV OFFICE/OUTPATIENT NEW HIGH MDM 60 MINUTES Phil Ryan DO [address] [place] [address] Geena Vasquez, OT [address] [place] [address] Referral ID Status Reason Start Date Expiration Date Visits Requested Visits Authorized [id number] Authorized Consult and Treat 08/27/2024 02/23/2025 10 10 [facility] Consultation (Routine) - Authorized Specialty Diagnoses / Procedures Referred By Helena frias Referred To Contact Occupational Therapy / Physical Therapy Diagnoses Left hand pain Procedures NV OFFICE/OUTPATIENT NEW HIGH MDM 60 MINUTES Phil Ryan DO [address] [place] [address] Phone: tel: fax: Geena Vasquez, OT [address] [place] [address] Phone: tel: fax: Referral ID Status Reason Start Date Expiration Date Visits Requested Visits Authorized [id number] Authorized Consult and Treat 08/27/2024 02/23/2025 10 10 [facility] Summary Purpose Family History No Family History Records Found Relationship Condition Age at Onset Recorded Date/T chivo father Heart disease Unknown Unknown Not Specified Unknown Relationship Condition Age at Onset Recorded Date/T chivo father Heart disease Unknown Unknown mother Unknown Advance Directives No Advanced Directives Records [...] in both feet October 11, 2024 1:23pm Chief Complaint Admit Date URI, Ears plugged February 01, 2025 3:3 1pm Reason for Referral Specialty Diagnoses / Procedures Referred By Helena frias Referred To Contact Orthopaedic Surgery Diagnoses Right shoulder pain, unspecified chronicity Procedures L Inj/Asp Phil Ryan DO [address] [place] [address] Referral ID Status Reason Start Date Expiration Date V isits Requested Visits Authorized [id number] Authorized 07/20/2024 01/16/2025 1 1 Referral ID Status Reason Start Date Expiration Date V isits Requested Visits Authorized [id number] Authorized 07/20/2024 01/16/2025 1 1 Additional Source Comments INFORMATION SOURCE (unrecogn ized section and content) DATE CREATED AUTHOR 05/15/2018 [facility] DATE CREATED AUTHOR AUTHOR'S ORGANIZ ATION 02/28/2023 [facility] DATE CREATED AUTHOR AUTHOR'S ORGANIZ ATION 07/29/2024 [facility] DATE CREATED AUTHOR AUTHOR'S ORGANIZ ATION 03/03/2025 [facility] EPIC REASON FOR VISIT (unrecogniz ed section and content) Reason Comments Post-op Reason Comments Post-op Reason Onset Date Comments OT 10/20/2024 Reason Comments Allergic Reaction PT had an allergic r eaction that went into anaphylaxis went to er and was treated and given an epi pen. Pt stated that she feels she doesn't need the epi pen and feels she will never use it but in the same breath stated that they had a bee infestation at work which she hid daily in her office. Reason Onset Date Comments OT Initial Eval 10/25/2024 Tried to contact re: receiving another OT referral from Dr. Ryan; this one is for carpal tunnel R wrist / Trigger R finger. Requested a call back to schedule. Reason Comments Follow-up Reason Comments Pain Care Teams (unrecognized sec tion and content) Scooper Relationship Specialty Start Date End Date Tereso Haider MD [address] [place] [address] PCP - General 05/22/23 Team Status: Active Member Role Status Dates Tereso Haider DO Primary Care Provider Active Team Status: Inactive Member Role Status Dates Tereso Haider DO Primary Care Provide r, Attending Provider Active Start: May 10, 2024 End: May 10, 2024 Scooper Relationship Specialty Start Date End Date Tereso Haider MD [address] [place] [phone] PCP - General 05/22/23 Scooper Relationship Specialty Start Date End Date Tereso Haider MD [address] [facility] [place] [phone] PCP - General 05/22/23 Scooper Relationship Specialty Start Date End Date Tereso Haider MD [address] [facility] [place] [phone] PCP - General 05/22/23 Scooper Relationship Specialty Start Date End Date Tereso Haider MD [address] [facility] [place] [address] PCP - General 05/22/23 Scooper Relationship Specialty Start Date End Date Tereso Haider MD [address] [facility] [place] [address] PCP - General 05/22/23 Scooper Relationship Specialty Start Date End Date Tereso Haider MD [address] [facility] [place] [address] PCP - General 05/22/23 Scooper Relationship Specialty Start Date End Date Tereso Haider MD [address] [facility] [place] [phone] PCP - General 05/22/23 Team Status: Inactive Member Role Status Dates Tereso Haider DO Primary Care Provide r, Attending Provider Active Start: October 11, 2024 End: October 11, 2024 Scooper Relationship Specialty Start Date End Date Tereso Haider MD [address] [facility], [id number] PCP - General 05/22/23 Scooper Relationship Specialty Start Date End Date Tereso Haider MD [address] [facility] [place] [phone] PCP - General 05/22/23 Scooper Relationship Specialty Start Date End Date Tereso Haider MD [address] [facility] [place] [phone] PCP - General 05/22/23 Scooper Relationship Specialty Start Date End Date Tereso Haider MD [address] [facility] [place] [address] PCP - General 05/22/23 Scooper Relationship Specialty Start Date End Date Tereso Haider MD [address] [facility] [place] [phone] PCP - General 05/22/23 Scooper Relationship Specialty Start Date End Date Tereso Haider MD [address] [facility] [place] [address] PCP - General 05/22/23 Team Status: Inactive Member Role Status Dates Tereso Haider DO Primary Care Provide r, Attending Provider Active Start: February 01, 2025 End: February 01, 2025 Scooper Relationship Specialty Start Date End Date Tereso Haider MD [address] [facility] [place] [address] PCP - General 05/22/23 Scooper Relationship Specialty Start Date End Date Tereso Haider MD [address] [facility] [place] [phone] PCP - General 05/22/23 Goals (unrecognized section [...] BE BASED ON THE PRIMARY CLINICAL RECORDS. [facility] [employer] [place] [facility] provides no warranty or guarantee of the accuracy or completeness of information in this document.
[2025-05-12 08:12] LABS: Basophils Absolute Auto 0.1 10^3/uL (0.0-0.1); Basophils Percent Auto 0.9 % (0.2-2.0); Eosinophils Absolute Auto 0.4 10^3/uL (0.0-0.7); Eosinophils Percent Auto 5.6 % (0.9-7.0); Hemoglobin 12.8 g/dL (12.0-16.0); Immature Granulocytes Abs Auto 0.02 10^3/uL (0.00-0.03); Immature Granulocytes Pct Auto 0.3 % (0.0-0.5); Lymphocytes Absolute Auto 2.6 10^3/uL (1.2-3.8); Lymphocytes Percent Auto 38.5 % (20.5-60.0); Mean Corpuscular HGB Conc 32.8 g/dL (29.9-35.2); Mean Corpuscular Hemoglobin 29.9 pg (26.7-34.0); Mean Corpuscular Volume 91.1 fL (81.0-99.0); Mean Platelet Volume 10.9 fL (9.5-13.5); Monocytes Absolute Auto 0.7 10^3/uL (0.3-0.8); Neutrophils Absolute Auto 2.9 10^3/uL (1.4-6.5); Neutrophils Percent Auto 43.7 % (43.0-75.0); Platelet Count 272 10^3/uL (150-450); Red Blood Count 4.28 10^6/uL (4.20-5.40); White Blood Count 6.7 10^3/uL (4.0-11.0)
[2025-05-12 08:34] LABS: Alanine Aminotransferase 30 U/L (14-59); Albumin Level 3.7 g/dL (3.4-5.0); Alkaline Phosphatase 77 U/L (46-116); Anion Gap 15.8; Aspartate Amino Transferase 16 U/L (15-37); BUN Creatinine Ratio 29.9; Bilirubin Total 0.3 mg/dL (0.2-1.0); Calcium 9.4 mg/dL (8.5-10.1); Carbon Dioxide 25.9 mmol/L (21.0-32.0); Chloride 105 mmol/L (98-107); Chol HDL Ratio 2.8; Cholesterol 162 mg/dL (<=200); Estimated GFR (African America >60 (>=60 mL/min/1.73m^2); Estimated GFR (Non-African Ame 50 (>=60 mL/min/1.73m^2); Globulin 3.7 g/dL; Glucose 111 mg/dL (74-106); HDL Cholesterol 58 mg/dL (40-60); LDL Cholesterol Calculated 75.4 mg/dL; Potassium 3.7 mmol/L (3.5-5.1); Sodium 143 mmol/L (136-145); Thyroid Stimulating Hormone 1.295 uIU/mL (0.358-3.740); Total Protein 7.4 g/dL (6.4-8.2); Triglycerides 143 mg/dL (<=150); VLDL CHOLESTEROL 28.6 mg/dL
[2025-05-12 08:35] LABS: Free T4 1.03 ng/dL (0.76-1.46)
[2025-05-13 04:07] LABS: Triiodothyronine (T3) 103 ng/dL (71-180)
== END 2025-05-12 07:15 | disposition home or self-care (01) ==
LOC: LAB 07:14
PROVIDERS: PCP Internal Medicine; Visit Provider Internal Medicine
DX: R73.01 Impaired fasting glucose (principal); I10 Essential (primary) hypertension; E78.00 Pure hypercholesterolemia, unspecified; M85.88 Other specified disorders of bone density and structure, other site; E01.0 Iodine-deficiency related diffuse (endemic) goiter; R53.83 Other fatigue
CPT/HCPCS: 36415; 80053; 80061; 84439; 84443; 84480; 85025

== ENCOUNTER 2025-05-17 08:54 | Outpatient (OUT) | payer MEDICARE, SELFPAY ==
--- OUTSIDE RECORDS SUMMARY | 2025-05-12 09:00 | XMS_ITS | Encounter Summary ---
Author Organization [facility] Address [address] [place] [address] Care Team Providers Care Band Cutting Machine Operator Name Role Phone VitalyTereso Annie SPEARS Primary Care Provider [phone] Reason for Referral * Clinic-Administered Medication (Routine) - Closed Specialty Diagnoses / Procedures Referred By Contac Referred To Contact Orthopaedic Surgery Diagnoses Right knee pain, unspecified chronicity Procedures L Inj/Asp: R knee Phil Ryan DO [address] [place] [address] Phone: tel: fax: Referral ID Status Reason Start Date Expiration Date Visits Re quested Visits Authorized [id number] Closed 05/12/2025 11/08/2025 1 1 * Clinic-Administered Medication (Routine) - Closed Specialty Diagnoses / Procedures Referred By Contac t Referred To Contact Orthopaedic Surgery Diagnoses Right shoulder pain, unspecified chronicity Procedures L Inj/Asp: R subacromial bursa Phil Ryan DO [address] [place] [address] Phone: tel: fax: Referral ID Status Reason Start Date Expiration Date Visits Re quested Visits Authorized [id number] Closed 05/12/2025 11/08/2025 1 1 * Clinic-Administered Medication (Routine) - Closed Specialty Diagnoses / Procedures Referred By Contac t Referred To Contact Orthopaedic Surgery Diagnoses Right shoulder pain, unspecified chronicity Procedures L Inj/Asp: R glenohumeral Phil Ryan DO [address] [place] [address] Phone: tel: fax: Referral ID Status Reason Start Date Expiration Date Visits Re quested Visits Authorized [id number] Closed 05/12/2025 11/08/2025 1 1 Reason for Visit * Reason Comments Follow-up Follow-up Encounter Details Date Type Department Care Team (Late st Contact Info) Description 05/12/2025 9:00 AM EDT [facility] [address] [facility] [place] [address] Phil Ryan DO [address] [place] [address] Right shoulder pain, unspecified chronicity; Right knee pain, unspecified chronicity Social History Tobacco Use Types Packs/Day Years Used Date Smoking Tobacco: Former Cigarettes 0.3 36.3 0 04/24/1966 - 07/28/2002 Smokeless Tobacco: Never Tobacco Cessation:Counseling Given: Not Answered Comments:Smoked 3 or 4 cigarettes a day, quit for 21 years. Alcohol Use Standard Drinks/Week Comments Not Currently 2 (1 standard drink = 0.6 oz pur e alcohol) No alcohol in 6 months Comments Unknown Sex and Gender Information Value Date Recorded Sex Assigned at Female 05/22/2023 8:43 AM EDT Legal Sex Female 6:37 PM EDT Gender Identity Female 05/22/2023 8:43 AM EDT Sexual Orientation Straight 05/22/2023 8: 43 AM EDT documented as of this encounter Last Filed Vital Signs Vital Sign Reading Time Taken Comments Blood Pressure - - Pulse - - Temperature - - Respiratory Rate - - Oxygen Saturation - - Inhaled Oxygen Concentration - - Weight 82.6 kg (182 lb) 05/12/2025 9:22 AM EDT Height 162.6 cm (5' 4 ) 05/12/2025 9:22 AM EDT Body Mass Index 31.24 05/12/2025 9:22 AM EDT documented in this encounter Progress Notes * Jud Ace, GEORGINAT - 05/12/2025 9:00 AM EDTAssociated Order(s): L Inj/Asp: R glenohumeral; L Inj/Asp: R subacromial bursa; L Inj/Asp: R knee Post-Procedure Diagnose(s): Right knee pain, unspecified chronicity; Right shoulder pain, unspecified chronicity L Inj/Asp: R glenohumeral on 05/12/2025 9:48 AM Indications: pain Details: 25 G needle, ultrasound-guided Medications: 1 mL betamethasone acetate-betamethasone sodium phosphate 6 (3-3) MG/ML Consent was given by the patient. L Inj/Asp: R subacromial bursa on 05/12/2025 9:48 AM Indications: pain Details: 25 G needle, ultrasound-guided Medications: 1 mL betamethasone acetate-betamethasone sodium phosphate 6 (3-3) MG/ML Consent was given by the patient. L Inj/Asp: R knee on 05/12/2025 9:49 AM Indications: pain Details: lateral approach Medications: 32 mg triamcinolone acetonide 32 MG Consent was given by the patient. * Phil Ryan DO - 05/12/2025 9:00 AM EDT Images from the original note were not included. @MARYLOUTE@ Billie Vicente Vitaly is a 80 y.o. female who presents for Follow-up of the Right Knee and Follow-up of theRight Shoulder HPI: History of Present Illness The patient is a 80-year-old right-hand dominant female who presents today for evaluation of right shoulder and right knee pain. She received a Zilretta injection into the right knee and a cortisone injection in the right shoulder on 12/28/2024. She reports experiencing pain in her right buttock area, which extends down her leg distal to the knee but does not seem to radiate into the thigh. She expresses concern about the potential impact ofthis pain on her ability to continue golfing, an activity she enjoys during the summer months. She has been unable to walk due to her current condition but found some relief after spending time in a pool recently. She has been following the Weight [employer] program and has successfully lost 7 pounds. She believesthis weight loss has been beneficial for her arthritis. Additionally, she has eliminated sugar fromher diet and no longer experiences cravings for it. SUBJECTIVE: MEDICATIONS: Current Outpatient Medications Medication Instructions EPINEPHrine (EPIPEN) 0.3 mg, Injection, As needed, [...] JAB CHOLECYSTECTOMY 1993 HYSTERECTOMY 1990 LUMBAR DISCECTOMY 01/15/18 OTHER SURGICAL HISTORY 01/15/2018 ACDF TRIGGER FINGER RELEASE Right 08/16/2024 FAMILY HISTORY: Family History Problem Relation Name Age of Onset Cancer Mother Kerry Cruz Diabetes Mother Kerry Cruz Hyperlipidemia Mother Kerry Cruz Arthritis Mother Kerry Cruz Heart disease Father Andrea SOCIAL HISTORY: Social History Tobacco Use Smoking status: Former Current packs/day: 0.00 Average packs/day: 0.3 packs/day for 36.3 years (9.1 ttl pk-yrs) Types: Cigarettes Start date: 04/24/1966 Quit date: 07/28/2002 Years since quittin.8 Smokeless tobacco: Never Tobacco comments: Smoked 3 [...] 5' 4 Wt 182 lb BMI 31.24 kg/m?? OB Status Unknown Smoking Status Former BSA 1.93 m?? Physical Exam Alert and oriented, no acute distress. Mood and affect are appropriate. Ambulating independently. Gait is nonantalgic. RIGHT SHOULDER The skin is warm, dry and intact. soft tissue mass over the AC joint not as prominent as previous. She can raise her arm overhead. She has full, passive forward flexion, abduction, internal and external rotation. There is mild weakness with supraspinatus stress test. No weakness with external rotation and resisted supination. Negative belly-press test. Negative bear-hug test. Negative Hornblower.Positive Whipple. Positive Ramos and Neer impingement. Positive cross-arm adduction. No instability. Tender AC joint. RIGHT KNEE ROM 0-120. Tender medial and lateral joint lines. No effusion. Negative anterior and posterior drawer. No varus or valgus instability. Ortho Exam Results ASSESSMENT AND PLAN: I reviewed the history, physical exam, diagnostic studies, and diagnosis with the patient. Assessment & Plan 1. Rotator cuff tear, AC joint arthritis, right shoulder A repeat cortisone injection was administered today to help manage symptoms through the summer. A limited ultrasound examination of the right shoulder was performed. The patient's hand was placedin the lap in the supinated position. The biceps tendon, subscapularis, and pectoralis major were visualized at the anterior aspect of the shoulder. The acromioclavicular joint was then identified atthe superior aspect of the shoulder. The patient's [...] of 1 mL of 1% plain lidocaine and1 mL of betamethasone was then injected. The patient's arm was then placed back at the side and theprobe was moved to the posterior aspect of the shoulder. The glenohumeral joint was visualized. Thearea was prepped with alcohol and betadine. Using ultrasound guidance, a new 25 gauge 1-1/2 inch needle was inserted into the glenohumeral joint from a posterior approach. A mixture of 1 mL of [...] the injection. 2. Degenerative osteoarthrosis, right knee A repeat Zilretta injection was administered today to help manage symptoms through the summer. After informed consent and using sterile technique, the superolateral aspect of the right knee(s) was prepped with alcohol and Betadine. The skin was anesthetized with ethyl chloride and the knee wasthen injected with 5 mL Zilretta with a [...] experiences any adverse reaction from the injection. 3. Right buttock pain: This pain may be related to the lower back or SI joint. If the pain persists, further evaluation, including imaging, may be considered. The patient would like to leave follow [...] visit: Right shoulder pain, unspecified chronicity - L Inj/Asp: R glenohumeral - L Inj/Asp: R subacromial bursa Right knee pain, unspecified chronicity - L Inj/Asp: R knee Phil Ryan D.O. Attestation This note was created using voice recognition through [employer]. documented in this encounter Plan of Treatment Upcoming Encounters Date Type Department Care Team (Late st Contact Info) Description 05/26/2025 9:00 AM EDT Office Visit [facility] [address] [place] [address] Rebel Auguste MD [address] [place] [address] documented as of this encounter Procedures Procedure Name Priority Date/Time Associated Diagnosis Comments AR ARTHROCENTESIS ASPIR&/INJ MAJOR JT/BURSA W/O US Routine 05/12/2025 9:49 AM EDT Right knee pain, unspecified chronicity AR ARTHROCENTESIS ASPIR&/INJ MAJOR JT/BURSA W/US Routine 05/12/2025 9:48 AM EDT Right shoulder pain, unspecified chronicity AR ARTHROCENTESIS ASPIR&/INJ MAJOR JT/BURSA W/US Routine 05/12/2025 9:48 AM EDT Right shoulder pain, unspecified chronicity documented in this encounter Results * AR ARTHROCENTESIS ASPIR&/INJ MAJOR JT/BURSA W/O US (05/12/2025 9:49 AM EDT) [facility]ran[facility] - 05/12/2025 9:49 AM EDT GEORGINA CarterT 05/12/2025 8:27 PM L Inj/Asp: R knee on 05/12/2025 9:49 AM Indications: pain Details: lateral approach Medications: 32 mg triamcinolone acetonide 32 MG Consent was given by the patient. us Phil Ryan DO IN CLINIC/BEDSIDE ORDERABLES Fi nal Result * AR ARTHROCENTESIS ASPIR&/INJ MAJOR JT/BURSA W/US (05/12/2025 9:48 AM EDT) Jud Carranza, GEORGINAT - 05/12/2025 9:48 AM EDT GEORGINA CarterT 05/12/2025 8:27 PM L Inj/Asp: R subacromial bursa on 05/12/2025 9:48 AM Indications: pain Details: 25 G needle, ultrasound-guided Medications: 1 mL betamethasone acetate-betamethasone sodium phosphate 6 (3-3) MG/ML Consent was given by the patient. us Phil Ryan DO IN CLINIC/BEDSIDE ORDERABLES Fi nal Result * AR ARTHROCENTESIS ASPIR&/INJ MAJOR JT/BURSA W/US (05/12/2025 9:48 AM EDT) Malena Jud Ace, ARRT - 05/12/2025 9:48 AM EDT Jud Ace, ARRT 05/12/2025 8:27 PM L Inj/Asp: R glenohumeral on 05/12/2025 9:48 AM Indications: pain Details: 25 G needle, ultrasound-guided Medications: 1 mL betamethasone acetate-betamethasone sodium phosphate 6 (3-3) MG/ML Consent was given by the patient. us Phil Ryan DO IN CLINIC/BEDSIDE ORDERABLES Fi nal Result documented in this encounter Visit Diagnoses Diagnosis Right shoulder pain, unspecified chronicity Right knee pain, unspecified chronicity documented in this encounter Administered Medications Inactive Administered Medications - up to 3 most recent administrations Medication Order MAR Action Action Date Dose Rate Site betamethasone acetate-betamethasone sodium phosphate (Celestone) injection 1 mL 1 mL, Intra-articular, Once PRN Procedure, Starting on Yessenia 05/12/25 at 0948, For 1 doseIndications:Right shoulder pain, unspecified chronicity Given 05/12/2025 9:48 AM EDT 1 mL betamethasone acetate-betamethasone sodium phosphate (Celestone) injection 1 mL 1 mL, Intra-articular, Once PRN Procedure, Starting on Yessenia 05/12/25 at 0948, For 1 doseIndications:Right shoulder pain, unspecified chronicity Given 05/12/2025 9:48 AM EDT 1 mL triamcinolone acetonide (Zilretta) injection 32 mg 32 mg, Once PRN Procedure, Starting on Yessenia 05/12/25 at 0949, For 1 doseIndications:Right knee pain, unspecified chronicity Given 05/12/2025 9:49 AM EDT 32 mg documented in this encounter Care Teams Band Cutting Machine Operator Relationship Specialty Start Date End Date Tereso Haider DO [address] [place] [id number] PCP - General Internal Medicine 05/12/25 documented as of this encounter
--- NOTE | 2025-05-17 08:56 | MM_ITS ---
Patient Name: RIVER ELIZONDO MR#: [id number] : 1945 Exam Date: 05/17/2025 Ordering Doctor: DR SONJA ELIZONDO D.O. RADIOLOGY REPORT PROCEDURE: MM TOMOSYNTHESIS SCREENING BI COMPARISON: MM TOMOSYNTHESIS SCREENING BI, 11/11/2023. MG MAMM SCREEN 3D ANASTASIYA CAD, 12/04/2021. MG MAMM SCREEN ANASTASIYA W CAD, 09/14/2020. MG MAMM ANASTASIYA SCRN W CAD DIG, 10/07/2013. INDICATIONS: Screening Calculator Name NCI Breast Cancer Risk Assessment Tool 5 Year Breast Cancer Risk 3.60% Lifetime Breast Cancer Risk 6.40% Personal Breast Cancer No Personal Ovarian Cancer No Treatments None Family Cancers Mother with breast cancer at age 82; Cousin-paternal with breast cancer at age 80. LOCATION: [facility] BREAST COMPOSITION: There are scattered areas of fibroglandular density. FINDINGS: DIAGNOSTIC CATEGORY 2--BENIGN FINDING: RECOMMENDATIONS: ROUTINE MAMMOGRAM AND CLINICAL EVALUATION IN 12 MONTHS. PLEASE NOTE: A NORMAL MAMMOGRAM DOES NOT EXCLUDE THE POSSIBILITY OF BREAST CANCER. A CLINICALLY SUSPICIOUS PALPABLE LUMP SHOULD BE BIOPSIED. RIGHT BREAST: No significant suspicious finding. Similar focal asymmetries are present. Nine appearing lymph nodes are noted along the chest wall. Benign-appearing calcifications are present. LEFT BREAST: No significant suspicious finding. Benign-appearing calcifications are present. Benign-appearing lymph nodes are noted along the chest wall. Dictated by: Esau Curtis MD on 05/17/2025 at 11:53 Approved by: Esau Curtis MD on 05/17/2025 at 11:56
--- NOTE | 2025-05-17 08:56 | US_ITS ---
The [address] [address] Patient Name: RIVER ELIZONDO MRN: [id number] date: 1945 Sex: F Assigned Patient Location: [facility] Current Patient Location: [facility] Accession/Order Number: [id number] Exam Date: 05/17/2025 11:52 Report Date: 05/17/2025 11:56 At the request of: SONJA ELIZONDO DO Procedure: US thyroid THYROID ULTRASOUND COMPARISON: None CLINICAL DATA: Palpable lump. The right thyroid lobe measures 5.1 x 2.1 x 1.7 cm. The left lobe measures 4.4 x 1.6 x 1.5 cm. The isthmus measures 3-4 mm. There is a cystic lesion with mural nodularity at the mid to upper pole on the right measuring 8 x 7 x 4 mm. There is a second small hypoechoic nodule in close proximity measuring 4 x 2 x 3 mm . No nodularity is seen on the left. US/US thyroid IMPRESSION: SUBCENTIMETER RIGHT THYROID NODULES Impression dictated by: Paola Rahman M.D. 05/17/2025 11:56 AM Dictation Location: [place] [address] Electronically authenticated by: [id number] Y Date: 05/17/2025 11:56
--- OUTSIDE RECORDS SUMMARY | 2025-05-17 08:56 | XMS_ITS | Encounter Summary ---
Author Organization [facility] Address [address] [place] [address] Care Team Providers Care Hospice Care Consultant Name Role Phone VitalyTereso Primary Care Provider [phone] Pcp, No CLIENT PROFESSIONAL Primary Care Provider Unavailabl e Source Comments In the event this information is protected by the Federal Confidentiality of Alcohol and Drug AbusePatient Records regulations: The Federal rules restrict any use of the information to criminally investigate or prosecute any alcohol or drug abuse patient.[facility] Encounter Details Date Type Department Care Team (Late st Contact Info) Description 09/15/2016 Patient Msg Neurology [address] [place] [address] Javier Vitale MD [address] [place] [address] RE: Appointment Cancellation Request Social History Tobacco Use Types Packs/Day Years Used Date Smoking Tobacco: Former Cigarettes Q uit: 08/02/2002 Smokeless Tobacco: Never Alcohol Use Standard Drinks/Week Comments Yes 0 (1 standard drink = 0.6 oz pur e alcohol) very occas Comments No Sex and Gender Information Value Date Recorded Sex Assigned at Not on file Legal Sex Female 1:16 PM EDT Gender Identity Not on file Sexual Orientation Not on file documented as of this encounter Functional Status * Are you deaf or do you have serious difficulty hearing? Answer Date of Assessment Author No 06/27/2015 11:38 AM Brigido Mccoy MA * Are you blind or do you have serious difficulty seeing, even when wearing glasses? Answer Date of Assessment Author No 06/27/2015 11:38 AM Brigido Mccoy MA * Do you have serious difficulty walking or climbing stairs? Answer Date of Assessment Author No 06/27/2015 11:38 AM Brigido Mccoy MA * Do you have difficulty dressing or bathing? Answer Date of Assessment Author No 06/27/2015 11:38 AM Brigido Mccoy MA * Because of a physical, mental, or emotional condition, do you have difficulty doing errands alone such as visiting a doctor's office or shopping? Answer Date of Assessment Author No 06/27/2015 11:38 AM Brigido Mccoy MA documented as of this encounter Mental Status * Because of a physical, mental, or emotional condition, do you have serious difficulty concentrating, remembering, or making decisions? Answer Entry Date Author No 06/27/2015 11:38 AM Brigido Mccoy MA documented in this encounter Plan of Treatment Upcoming Encounters Date Type Department Care Team (Late st Contact Info) Description 12/02/2025 2:00 PM EST Office Visit Rheumatology [address] [place] [address] Daniela Rae MD [address] [place], [place] [id number] Joint Pain documented as of this encounter Visit Diagnoses Not on filedocumented in this encounter Care Teams Hospice Care Consultant Relationship Specialty Start Date End Date Tereso Haider DO PCP - General Internal Medicine 04/12/15 06/07/22 Kristyn López APRN PCP - General 06/08/22 12/24/22 documented as of this encounter
--- OUTSIDE RECORDS SUMMARY | 2025-05-17 08:56 | XMS_ITS | Clinical Summary ---
Author Organization [facility] Address [facility] [place] [address] Care Team Providers Care Conference Coordinator Name Role Phone Unavailable Primary Care Provider Unavailabl e Allergies No known active allergies Medications lisinopril-hydr ochlorothiazide (PRINZIDE,ZESTO RETIC) 20-12.5 mg per tablet Take 1 tablet by mouth once daily. Active FOLIC ACID/MULTIVIT-M IN/LUTEIN (CENTRUM SILVER ORAL) Take by mouth once daily. Active Pegram-3 Fatty Acids-Vitamin E (FISH OIL) 1,000 mg cap Take 1 capsule by mouth once daily. Active CALCIUM CARBONATE/VITAM IN D3 (CALCIUM 600 + D,3, ORAL) Take 1,200 mg by mouth. Active zolpidem (AMBIEN) 5 mg tablet Take 2.5 mg by mouth at bedtime as needed. Active TENS Units (TENS 502) sachin 1 Device as needed. 1 Device 0 10/24/2016 Active Active Problems Problem Noted Date Diagnosed Date Ulnar nerve compression 10/13/2016 Encounters Date Type Department Care Team Description 05/11/2025 Patient [facility] [place] [address] Katie Madison RPh At your next appointment, choose [facility] 05/10/2025 Travel from Last 3 Months Family History Medical History Relation Comments Ischemic Heart Disease Father Breast Cancer Mother Hypertension Mother Relation Status Comments Father Mother Social History Tobacco Use Types Packs/Day Years [...] on file Sexual Orientation Not on file Last Filed Vital Signs Vital Sign Reading Time Taken Comments Blood Pressure 159/69 10/24/2016 10:50 AM EST Pulse 63 10/24/2016 10:50 AM EST Temperature 36.4 C (97.6 F) 08/08/2015 9:46 AM EDT Respiratory Rate 16 08/23/2016 9:25 AM EDT Oxygen Saturation - - Inhaled Oxygen Concentration - - Weight 79.8 kg (176 lb) 10/24/2016 10:50 AM EST Height 162.6 cm (5' 4 ) 08/23/2016 9:25 AM EDT Body Mass Index 30.21 08/23/2016 9:25 AM EDT Plan of Treatment Upcoming Encounters Date Type Department Care Team (Late st Contact Info) Description 12/02/2025 2:00 PM EST Office Visit Rheumatology [address] [place] [address] Daniela Rae MD [address] [place] [address] Joint Pain Health Maintenance Due Date Last Done Comments Anxiety Screening 1963 Depression Screening 1965 Hepatitis C Screening 1963 DTaP,Tdap,Td Vaccine (1 - Tdap) 1966 Pneumococcal Vaccine: 50+ (1 of 1 - PCV) 1997 Shingrix Vaccine (1 of 2) 1997 Bone Density Screening 02/18/2012 Diabetes Screening 06/27/2018 06/27/2015 RSV Vaccine (1 - 1-dose 75+ series) 2022 Covid-19 Vaccine ( - season) 2024 Advance Directive Discussion 11/24/2024 Influenza Vaccine (Season Ended) 2025 Procedures Procedure Name Priority Date/Time Associated Diagnosis Comments HEMOGLOBIN A1C Routine 06/27/2015 12:47 PM EDT Impaired fasting glucose Dysesthesia affecting both sides of body from Last 3 Months or Most Recently Relevant to Health Maintenance Results * HGB A1C (06/27/2015 12:47 PM EDT) Hemoglobin A1C 6.0 4.0 - 6.0 % 06/27/2015 2:38 PM EDT [facility] Comment: [place] [employer] guidelines indicate that patients with HgbA1c in the range 5.7-6.4% are at increased risk for development of diabetes, and intervention by lifestyle modification may be beneficial. HgbA1c greater or equal to 6.5% is considered diagnostic of diabetes. Estimated Average Glucose 126 mg/dL 06/27/2015 2:38 PM EDT [facility] Comment: eAG: (Estimated average glucose) is a calculated value from HgbA1c and is business development representative of the average blood glucose level in the last 2-3 month period. Blood specimen (specimen) WHOLE BLOOD SPECIMEN / Unknown 06/27/2015 12:47 PM EDT 06/27/2015 12:49 PM EDT [facility] Final Result Performing Organization Address City/State/[facility] Co de Phone Number [facility] [address] [place] [address] from Last 3 Months or Most Recently Relevant to Health Maintenance [place] [address] MEDICARE
--- OUTSIDE RECORDS SUMMARY | 2025-05-17 08:56 | XMS_ITS | Encounter Summary ---
Author Organization [facility] Address [address] [place] [address] Care Team Providers Care Canopy Stringer Name Role Phone Tereso Haider Primary Care Provider [phone] Encounter Details Date Type Department Care Team (Late st Contact Info) Description 05/12/2025 Bamboo flowsheet [facility] [address] [place] [address] Phil Ryan, [address] [place], [place] [id number] Social History Tobacco Use Types Packs/Day Years Used Date Smoking Tobacco: Former Cigarettes 0.3 36.3 0 04/24/1966 - 07/28/2002 Smokeless Tobacco: Never Comments:Smoked 3 or 4 cigar ettes a day, quit for 21 years. Alcohol [...] AM EDT documented as of this encounter Plan of Treatment Upcoming Encounters Date Type Department Care Team (Late st Contact Info) Description 05/26/2025 9:00 AM EDT Office Visit [facility] [address] [place] [address] Rebel Auguste MD [address] [address] documented as of this encounter Visit Diagnoses Not on filedocumented in this encounter Care Teams Canopy Stringer Relationship Specialty Start Date End Date Tereso Haider DO [address] [place] [id number] PCP - General Internal Medicine 05/12/25 documented as of this encounter
--- OUTSIDE RECORDS SUMMARY | 2025-05-17 08:56 | XMS_ITS | Encounter Summary ---
Author Organization [facility] Address [address] [place] [address] Care Team Providers Care Furnace Cooler Name Role Phone Tereso Elizondo DO Primary Care Provider Tereso Elizondo Elissa DO Primary Care Provider [phone] Encounter Details Date Type Department Care Team (Late st Contact Info) Description 08/03/2023 Clinisync Result Encounter [facility] External Department Unsolicited Michael Dorado, PA [address] [facility] [address] [place] [address] Social History Tobacco Use Types Packs/Day Years Used Date Smoking Tobacco: Former Cigarettes 0.3 36.3 0 04/24/1966 - 07/28/2002 Smokeless Tobacco: Never Comments:Smoked 3 or 4 cigar ettes a day, quit for 21 years. Alcohol Use Standard Drinks/Week Comments Yes 2 (1 standard drink = 0.6 oz pur e alcohol) Comments Unknown Sex and Gender Information Value [...] ALL [address] [place] [address] Rebel Auguste MD [address] [place] [address] documented as of this encounter Procedures Procedure Name Priority Date/Time Associated Diagnosis Comments ECG 12-LEAD 08/03/2023 3:45 PM EDT documented in this encounter Results * ECG 12-LEAD (08/03/2023 3:45 PM EDT) Anatomical Region Laterality Modality Other 08/03/2023 3:45 PM EDT Narrative 08/03/2023 3:45 PM EDT [address] [address] Electrocardiograph Report Signed Patient: RIVER ELIZONDO MR#: [id number] : 1945 Acct:[id number] Age/Sex: 78 / F ADM Date: 08/03/23 Loc: MS 204-[address]: Mary Green M.D. Ordering Physician: Michael Dorado Date of Service: 08/03/23 Procedure(s): ECG 12 lead Accession Number(s): [id number] cc: [facility] Test Date: 2023-08-03 Pat Name: RIVER ELIZONDO Department: Room: - Gender: Female Psychologist Private Practice: : 1945 Requested By: TERESO CARO Order Number: [id number] Reading MD: MARY GREEN Measurements Intervals [place] Rate: 114 P: 80 AR: 188 QRS: 93 QRSD: 88 T: 43 QT: 324 QTc: 392 Interpretive Statements 1120 Sinus tachycardia [address] depression 7102 Moderate right axis deviation 9150 abnormal ECG No previous ECG available for comparison Electronically Signed On 08-04-2023 6:12:29 EDT by MARY GREEN Dictated By: Mary Green M.D. Signed By: 08/04/23 0612 DD/ 1545 TD/TT: Hemotherapist: Procedure Note Radiology, Radiologist, - 08/14/[address] [address] Electrocardiograph Report Signed Patient: RIVER ELIZONDO JMR#: [id number] : 7Acct:[id number] Age/Sex: 78 / FADM Date: 08/03/23 Loc: MS 204-[address]: Mary Green M.D. Ordering Physician: Michael Dorado Date of Service: 08/03/23 Procedure(s): ECG 12 lead Accession Number(s): [id number] cc: [facility] Test Date: 2023-08-03 Pat Name: RIVER ELIZONDO Department: Room: - Gender: Female Psychologist Private Practice: : 1945 Requested By: TERESO ELIZONDO Order Number: [id number] Reading MD: MARY GREEN Measurements Intervals [place] Rate: 114 P: 80 AR: 188 QRS: 93 QRSD: 88 T: 43 QT: 324 QTc: 392 Interpretive Statements 1120 Sinus tachycardia [address] depression 7102 Moderate right axis deviation 9150 abnormal ECG No previous ECG available for comparison Electronically Signed On 08-04-2023 6:12:29 EDT by MARY GREEN Dictated By: Mary Green M.D. Signed By:08/04/23 0612 DD/ 1545 TD/TT: Hemotherapist: us Michael [facility] Final Resul t documented in this encounter Visit Diagnoses Not on filedocumented in this encounter Care Teams Furnace Cooler Relationship Specialty Start Date End Date Tereso Elizondo DO PCP - General 05/22/23 05/11/25 Tereso Elizondo DO [address] [place] [phone] PCP - General Internal Medicine 05/12/25 documented as of this encounter
--- OUTSIDE RECORDS SUMMARY | 2025-05-17 08:56 | XMS_ITS | Encounter Summary ---
Author Organization [facility] Address [address] [place] [address] Care Team Providers Care Big Data Engineer Name Role Phone VitalyTereso Primary Care Provider [phone] Pcp, No TRUCK DRIVER SALESPERSON Primary Care Provider Unavailabl e Source Comments In the event this information is protected by the Federal Confidentiality of Alcohol and Drug AbusePatient Records regulations: The Federal rules restrict any use of the information to criminally investigate or prosecute any alcohol or drug abuse patient.[facility] Encounter Details Date Type Department Care Team (Latest Contact Info) Description 10/21/2016 Patient Msg [facility] Occupational Therapy [address] [id number] Cami Moore OT/Raisa [address] [place] [address] RE: Appointment Cancellation Request Social [...] 2:00 PM EST Office Visit Rheumatology [address] [place] [address] Daniela Rae MD [address] [place] [address] Joint Pain documented as of this encounter Visit Diagnoses Not on filedocumented in this encounter Care Teams Big Data Engineer Relationship Specialty Start Date End Date Tereso Haider DO PCP - General Internal Medicine 04/12/15 06/07/22 Kristyn López APRN PCP - General 06/08/22 12/24/22 documented as of this encounter
--- OUTSIDE RECORDS SUMMARY | 2025-05-17 08:56 | XMS_ITS | Encounter Summary ---
Author Organization [facility] Address [address] [place] [address] Care Team Providers Care Seat Joiner Chainstitch Name Role Phone VitalyTereso Primary Care Provider [phone] Pcp, No BORING MACHINE OPERATOR HELPER Primary Care Provider Unavailabl e Source Comments In the event this information is protected by the Federal Confidentiality of Alcohol and Drug AbusePatient Records regulations: The Federal rules restrict any use of the information to criminally investigate or prosecute any alcohol or drug abuse patient.[facility] Encounter Details Date Type Department Care Team (Late st Contact Info) Description 08/08/2015 Patient Msg Medical Records [address] [place] [address] Provider, Ccf RE:Lab results. Social History Tobacco Use Types Packs/Day Years Used Date Smoking Tobacco: Former Cigarettes Q uit: 08/02/2002 Smokeless Tobacco: Never Alcohol Use Standard Drinks/Week Comments Yes 0 (1 standard drink = 0.6 oz pur e alcohol) very occas Comments Unknown Sex and Gender Information Value [...] 2:00 PM EST Office Visit Rheumatology [address] [place], [place] [phone] Daniela Rae MD [address] [place] [address] Joint Pain documented as of this encounter Visit Diagnoses Not on filedocumented in this encounter Care Teams Seat Joiner Chainstitch Relationship Specialty Start Date End Date Tereso Haider DO PCP - General Internal Medicine 04/12/15 06/07/22 Kristyn López APRN PCP - General 06/08/22 12/24/22 documented as of this encounter
--- OUTSIDE RECORDS SUMMARY | 2025-05-17 08:56 | XMS_ITS | Encounter Summary ---
Author Organization [facility] Address [address] [facility] [place] [address] Care Team Providers Care Manager It Training Name Role Phone VitalyTereso DO Primary Care Provider Tereso Haider DO Primary Care Provider [phone] Encounter Details Date Type Department Care Team (Late Contact Info) Description 08/16/2024 Orders Only [facility] [address] [place] [phone] Phil Ryan DO [address] [place] [address] Right shoulder pain, unspecified chronicity (Primary Dx) Social History Tobacco Use Types Packs/Day Years [...] Office Visit [facility] [address] [facility] [address] [place] [address] Rebel Auguste MD [address] [facility] [address] [place] [address] documented as of this encounter Visit Diagnoses Diagnosis Right shoulder pain, unspecified chronicity- Primary documented in this encounter Care Teams Manager It Training Relationship Specialty Start Date End Date Tereso Haider DO PCP - General 05/22/23 05/11/25 Tereso Haider DO [address] [facility] [place] [address] PCP - General Internal Medicine 05/12/25 documented as of this encounter
--- OUTSIDE RECORDS SUMMARY | 2025-05-17 08:56 | XMS_ITS | Clinical Summary ---
Author Organization [facility] Address [address] [place] [address] Care Team Providers Care Dump Grader Name Role Phone Tereso Haider DO Primary Care Provider [phone] Allergies No known active allergies Medications lisinopril-hydr ochlorothiazide (PRINZIDE;ZESTO RETIC) 20-12.5 MG per tablet TAKE 1 TABLET BY MOUTH DAILY 3 10/06/2017 Active ALPRAZolam (XANAX) 0.5 MG tablet 12/10/2017 Active zolpidem (AMBIEN) 5 MG tablet TAKE 1/2 TABLET BY MOUTH AT BEDTIME 5 12/05/2017 Active Multiple Vitamins-Minera ls (CENTRUM SILVER ULTRA WOMENS PO) Take by mouth Active Calcium Carb-Cholecalci ferol (CALCIUM + D3 PO) Take by mouth daily Active [place]-3 Fatty Acids (FISH OIL PO) Take by mouth daily Active Active Problems Problem Noted Date Diagnosed Date Cervical spondylosis with myelopathy 01/15/2018 Cervical disc herniation 01/12/2018 Cervical myelopathy 01/12/2018 Family History Medical History Relation Name Comments No Known Problems Daughter Heart Disease Father Arthritis Mother Heart Disease Son Relation Name Status Comments Daughter Alive Father Mother Son Alive Social History Tobacco Use Types Packs/Day Years Used Date Smoking Tobacco: Former Cigarettes Smokeless Tobacco: Never Comments:quit in 2004 Alcohol Use Standard Drinks/Week Comments No 0 (1 standard drink = 0.6 oz pur e alcohol) Comments No Sex and Gender Information Value Date Recorded Sex Assigned at Not on file Legal Sex Female 10:04 PM EST Gender Identity Not on file Sexual Orientation Not on file Occupation Industry Job Start Date Job End Date retired Not on file Not on file Not on file Last Filed Vital Signs Vital Sign Reading Time Taken Comments Blood Pressure 149/57 01/15/2018 11:26 PM EST Pulse 58 01/15/2018 11:26 PM EST Temperature 36.5 C (97.7 F) 04/09/2019 3:13 PM EDT Respiratory Rate 18 01/15/2018 11:26 PM EST Oxygen Saturation 94% 01/15/2018 11:26 PM EST Inhaled Oxygen Concentration - - Weight 81.6 kg (180 lb) 04/09/2019 3:13 PM EDT Height 162.6 cm (5' 4 ) 04/09/2019 3:13 PM EDT Body Mass Index 30.9 04/09/2019 3:13 PM EDT Plan of Treatment Not on file Medical Devices Implanted Type Area Dolphin Researcher Device Identifier Shelf Expiration Date Model / Serial / Lot Allograft Tirad Cc 9 X 11 X 14 - [id number] Implanted:Qty : 1 on 01/15/2018 by Jeovanny White MD at [facility] Bone/Gra ft/Tissu e/Human/ Synth N/A: Spine Cervical [employer]-PMM 08/27/2022 [id number] / [id number] / [id number] - [id number] Implanted:Qty : 1 on 01/15/2018 by Jeovanny White MD at [facility] N/A: Spine Cervical HELIX T PLATE / [id number] / [id number] - [id number] Implanted:Qty : 4 on 01/15/2018 by Jeovanny White MD at [facility] N/A: Spine Cervical HELIX T SCREW KANDICE SELF TAP / [id number] / Insurance MEDICARE [employer] MEDICARE SUPP MEDICARE [employer] MEDICARE SUPP Advance Directives * Full Code (Latest Code Status on File) Date Activated Date Inactivated Comments 01/15/2018 12:09 PM 01/16/2018 11:53 AM Care Teams Dump Grader Relationship Specialty Start Date End Date Tereso Haider DO PCP - General Internal Medicine 01/07/18
--- OUTSIDE RECORDS SUMMARY | 2025-05-17 08:56 | XMS_ITS | Encounter Summary ---
Author Organization [facility] Address [address] [place] [address] Care Team Providers Care Pediatric Sports Medicine Specialist Name Role Phone Tereso Haider Primary Care Provider [phone] Pcp, No ONCOLOGY ADMIN Primary Care Provider Unavailabl e Source Comments In the event this information is protected by the Federal Confidentiality of Alcohol and Drug AbusePatient Records regulations: The Federal rules restrict any use of the information to criminally investigate or prosecute any alcohol or drug abuse patient.[facility] Encounter Details Date Type Department Care Team (Late st Contact Info) Description 10/21/2016 Patient Msg [facility] MA[facility] [address] [place] [address] Pipe Jimenez MD [address] [place] [address] RE: Appointment Cancellation Request Social [...] 2:00 PM EST Office Visit Rheumatology [address] [place] [address] Daniela Rae MD [address] [place] [address] Joint Pain documented as of this encounter Visit Diagnoses Not on filedocumented in this encounter Care Teams Pediatric Sports Medicine Specialist Relationship Specialty Start Date End Date Tereso Haider DO PCP - General Internal Medicine 04/12/15 06/07/22 Kristyn López APRN PCP - General 06/08/22 12/24/22 documented as of this encounter
--- OUTSIDE RECORDS SUMMARY | 2025-05-17 08:56 | XMS_ITS | Clinical Summary ---
Author Organization [facility] Address [address] [place] [address] Care Team Providers Care Belt Changer Name Role Phone Tereso Haider Primary Care Provider [phone] Allergies Active Allergy Reactions Criticality Noted Date Comments Yellow Jacket Venom Anaphylaxis High 08/08/2023 Medications lisinopril 10 MG tablet Take 10 mg by mouth 1 (one) time each day at the same time Active zolpidem (Ambien) 5 MG tablet Take 2.5 mg by mouth Daily as needed Active glucosamine-ch ondroitin 500-400 MG tablet Take 1 tablet by mouth in the morning and 1 tablet in the evening and 1 tablet before bedtime. Active lisinopril-hyd roCHLOROthiazi de 20-12.5 MG tablet 12/25/19 24 Active Multiple Vitamin (multivitamin) tablet Take 1 tablet by mouth Daily Active EPINEPHrine (Epipen) 0.3 MG/0.3ML injection syringeIndicat ions:Hymenopte ra allergy Inject 0.3 mL (0.3 mg) as directed if needed for anaphylaxis Call 911 after use. 4 each 12/10/19 25 026 Active azelastine (Astelin) 0.1 % nasal sprayIndicatio ns:Chronic rhinitis Administer 2 sprays into each nostril in the morning and 2 sprays before bedtime. Use in each nostril as directed. 90 mL 3 03/02/20 25 025 Discontinued Hospital, Clinic, or Other Facility Administered Medication Ordered Dose Route Frequency Start Date End Date Status gadoteridol (Prohance) injection 5,586 mgIndications:Pain in right shoulder,Mass of soft tissue of shoulder 5586 mg IV Once in imaging 06/24/2023 Active triamcinolone acetonide (Zilretta) injection 32 mgIndications:Right knee pain, unspecified chronicity 32 mg Once PRN Procedure 05/12/2025 05/12/2025 Ended betamethasone acetate-betamethason e sodium phosphate (Celestone) injection 1 mLIndications:Right shoulder pain, unspecified chronicity 1 mL IX Once PRN Procedure 05/12/2025 05/12/2025 Ended betamethasone acetate-betamethason e sodium phosphate (Celestone) injection 1 mLIndications:Right shoulder pain, unspecified chronicity 1 mL IX Once PRN Procedure 05/12/2025 05/12/2025 Ended Active Problems Problem Noted Date Diagnosed Date Trigger finger, right middle finger 09/03/2024 Left wrist pain 02/20/2024 Carpal tunnel syndrome 02/20/2024 Resolved Problems Problem Noted Date Diagnosed Date Resolved Date Left hand pain 02/20/2024 09/03/2024 Encounters Date Type Department Care Team Description 05/12/2025 9:00 AM EDT Office Visit [facility] [address] [address] Phil Ryan DO Right shoulder pain, unspecified chronicity; Right knee pain, unspecified chronicity 05/12/2025 Bamboo flowsheet [facility] [address] [place] [address] Phil Ryan DO 05/12/2025 Travel 05/09/2025 Travel 04/27/2025 Travel 03/02/2025 9:00 AM EDT Office Visit [facility] [address] [place] [address] Rebel Auguste MD Hymenoptera allergy (Primary Dx); Chronic rhinitis 03/02/2025 Bamboo flowsheet [facility] [address] [place] [address] Rebel Auguste MD 03/02/2025 Travel 02/27/2025 Travel from Last 3 Months Family History Medical History Relation Name Comments Heart disease Father Andrea Arthritis Mother Kerry Cruz Cancer Mother Kerry Cruz Diabetes Mother Kerry Cruz Hyperlipidemia Mother Kerry Cruz Relation Name Status Comments Father Andrea Mother Kerry Cruz Social History Tobacco Use Types Packs/Day Years [...] Orientation Straight 05/22/2023 8: 43 AM EDT Last Filed Vital Signs Vital Sign Reading Time Taken Comments Blood Pressure 128/78 02/28/2022 12:00 PM EDT Pulse - - Temperature 36.3 C (97.4 F) 10/12/2024 8:46 AM EST Respiratory Rate - - Oxygen Saturation - - Inhaled Oxygen Concentration - - Weight 82.6 kg (182 lb) 05/12/2025 9:22 AM EDT Height 162.6 cm (5' 4 ) 05/12/2025 9:22 AM EDT Body Mass Index 31.24 05/12/2025 9:22 AM EDT Plan of Treatment Upcoming Encounters Date Type Department Care Team (Late st Contact Info) Description 05/26/2025 9:00 AM EDT Office Visit [facility] [address] [phone] Rebel Auguste MD [address] [place] [address] Health Maintenance Due Date Last Done Comments Influenza Vaccine (Season Ended) 2025 09/24/20, 08/21/2021 Pneumococcal Vaccine: 65+ Years Completed 04/22/2019, 12/17/2016, 11/27/2016 Procedures Procedure Name Priority Date/Time Associated Diagnosis Comments SC ARTHROCENTESIS ASPIR&/INJ MAJOR JT/BURSA W/O US Routine 05/12/2025 9:49 AM EDT Right knee pain, unspecified chronicity SC ARTHROCENTESIS ASPIR&/INJ MAJOR JT/BURSA W/US Routine 05/12/2025 9:48 AM EDT Right shoulder pain, unspecified chronicity SC ARTHROCENTESIS ASPIR&/INJ MAJOR JT/BURSA W/US Routine 05/12/2025 9:48 AM EDT Right shoulder pain, unspecified chronicity from Last 3 Months Results * SC ARTHROCENTESIS ASPIR&/INJ MAJOR JT/BURSA W/O US (05/12/2025 9:49 AM EDT) Jud Carranza, GEORGINAT - 05/12/2025 9:49 AM EDT [facility] 05/12/2025 8:27 PM L Inj/Asp: R knee on 05/12/2025 9:49 AM Indications: pain Details: lateral approach Medications: 32 mg triamcinolone acetonide 32 MG Consent was given by the patient. Result [facility] us Phil Ryan DO IN CLINIC/BEDSIDE ORDERABLES Fi nal Result * SC ARTHROCENTESIS ASPIR&/INJ MAJOR JT/BURSA W/US (05/12/2025 9:48 AM EDT) Jud Carranza ARRT - 05/12/2025 9:48 AM EDT Jud Ace, [facility] 05/12/2025 8:27 PM L Inj/Asp: R subacromial bursa on 05/12/2025 9:48 AM Indications: pain Details: 25 G needle, ultrasound-guided Medications: 1 mL betamethasone acetate-betamethasone sodium phosphate 6 (3-3) MG/ML Consent was given by the patient. us Phil Ryan DO IN CLINIC/BEDSIDE ORDERABLES Fi nal Result * SC ARTHROCENTESIS ASPIR&/INJ MAJOR JT/BURSA W/US (05/12/2025 9:48 AM EDT) Narrative Jud Ace, ARRT - 05/12/2025 9:48 AM EDT Jud Ace, ARRT 05/12/2025 8:27 PM L Inj/Asp: R glenohumeral on 05/12/2025 9:48 AM Indications: pain Details: 25 G needle, ultrasound-guided Medications: 1 mL betamethasone acetate-betamethasone sodium phosphate 6 (3-3) MG/ML Consent was given by the patient. us Phil Ryan DO IN CLINIC/BEDSIDE ORDERABLES Fi nal Result from Last 3 Months Insurance MEDICARE [facility] Care Teams Belt Changer Relationship Specialty Start Date End Date Tereso Haider DO [address] [facility] [place] [address] PCP - General Internal Medicine 05/12/25
--- OUTSIDE RECORDS SUMMARY | 2025-05-17 08:56 | XMS_ITS | Encounter Summary ---
Author Organization [facility] Address [address] [facility] [place] [address] Care Team Providers Care Building Maintenance Engineer Name Role Phone Tereso Haider Primary Care Provider [phone] Encounter Details Date Type Department Care Team (Latest Contact Info) Description 05/12/2025 Travel Social History Tobacco Use Types Packs/Day Years [...] Office Visit [facility] [address] [place] [phone] Rebel Auguste MD [address] [facility] [address] [place] [address] documented as of this encounter Visit Diagnoses Not on filedocumented in this encounter Care Teams Building Maintenance Engineer Relationship Specialty Start Date End Date Tereso Haider DO [address] [place] [phone] PCP - General Internal Medicine 05/12/25 documented as of this encounter
--- OUTSIDE RECORDS SUMMARY | 2025-05-17 08:56 | XMS_ITS | Encounter Summary ---
Author Organization [facility] Address [address] [facility] [place] [address] Care Team Providers Care Salvage Diver Name Role Phone Tereso Haider Primary Care Provider [phone] Encounter Details Date Type Department Care Team (Latest Contact Info) Description 05/09/2025 Travel Social History Tobacco Use Types Packs/Day [...] Office Visit [facility] [address] [facility] [address] [place] [phone] Rebel Auguste MD [address] [facility] [address] [place] [address] documented as of this encounter Visit Diagnoses Not on filedocumented in this encounter Care Teams Salvage Diver Relationship Specialty Start Date End Date Tereso Haider DO PCP - General 05/22/23 05/11/25 documented as of this encounter
--- OUTSIDE RECORDS SUMMARY | 2025-05-17 08:56 | XMS_ITS | Encounter Summary ---
Author Organization [facility] Address [address] [place] [address] Care Team Providers Care Spanish Interpreter/Translator Name Role Phone Unavailable Primary Care Provider Unavailabl e Source Comments In the event this information is protected by the Federal Confidentiality of Alcohol and Drug AbusePatient Records regulations: The Federal rules restrict any use of the information to criminally investigate or prosecute any alcohol or drug abuse patient.[facility] Encounter Details Date Type Department Care Team (Latest Contact Info) Description 05/10/2025 Travel Social History Tobacco Use Types Packs/Day [...] 2:00 PM EST Office Visit Rheumatology [address] [facility] [place] [address] Daniela Rae MD [address] [facility] [address] [facility] [place] [address] Joint Pain documented as of this encounter Visit Diagnoses Not on filedocumented in this encounter
--- OUTSIDE RECORDS SUMMARY | 2025-05-17 08:56 | XMS_ITS | Encounter Summary ---
Author Organization [facility] Address [facility] [place] [address] Care Team Providers Care Asset Protection Lead Name Role Phone VitalyTereso Primary Care Provider [phone] Pcp, No SUPERVISOR PARK WORKERS Primary Care Provider Unavailabl e Source Comments In the event this information is protected by the Federal Confidentiality of Alcohol and Drug AbusePatient Records regulations: The Federal rules restrict any use of the information to criminally investigate or prosecute any alcohol or drug abuse patient.[facility] Encounter Details Date Type Department Care Team (Late st Contact Info) Description 10/21/2016 Patient Msg Plastic Surgery [address] [phone] Aimee Bliss APRN.APPRENTICE JOCKEY [address] [place] [address] RE: Appointment Cancellation Request Social [...] 2:00 PM EST Office Visit Rheumatology [address] [place] [address] Daniela Rae MD [address] [place] [address] Joint Pain documented as of this encounter Visit Diagnoses Not on filedocumented in this encounter Care Teams Asset Protection Lead Relationship Specialty Start Date End Date Tereso Haider DO PCP - General Internal Medicine 04/12/15 06/07/22 Kristyn López APRN PCP - General 06/08/22 12/24/22 documented as of this encounter
--- OUTSIDE RECORDS SUMMARY | 2025-05-17 08:56 | XMS_ITS | Encounter Summary ---
Author Organization [facility] Address [address] [facility] [place] [address] Care Team Providers Care Military Personnel Specialist Name Role Phone VitalyTereso DO Primary Care Provider [phone] Tereso Haider DO Primary Care Provider [phone] Encounter Details Date Type Department Care Team (Late Contact Info) Description 03/22/2024 Orders Only [facility] [address] [place] [id number] Phil Ryan DO [address] [place] [address] Carpal tunnel syndrome of left wrist (Primary Dx) Social History Tobacco Use Types [...] Encounters Date Type Department Care Team (Late Contact Info) Description 05/26/2025 9:00 AM EDT Office Visit [facility] [address] [facility] [address] [place] [id number] Rebel Auguste MD [address] [facility] [address] [place] [address] documented as of this encounter Visit Diagnoses Diagnosis Carpal tunnel syndrome of left wrist- Primary documented in this encounter Care Teams Military Personnel Specialist Relationship Specialty Start Date End Date Tereso Haider DO PCP - General 05/22/23 05/11/25 Tereso Haider DO [address] [place] [address] PCP - General Internal Medicine 05/12/25 documented as of this encounter
--- OUTSIDE RECORDS SUMMARY | 2025-05-17 08:56 | XMS_ITS | Encounter Summary ---
Author Organization [facility] Address [address] [place] [address] Care Team Providers Care French Instructor Name Role Phone VitalyTereso Primary Care Provider [phone] Pcp, No ASSOCIATE PROFESSOR OF VIOLIN Primary Care Provider Unavailabl e Source Comments In the event this information is protected by the Federal Confidentiality of Alcohol and Drug AbusePatient Records regulations: The Federal rules restrict any use of the information to criminally investigate or prosecute any alcohol or drug abuse patient.[facility] Encounter Details Date Type Department Care Team (Latest Contact Info) Description 10/21/2016 Patient Msg [facility] Occupational Therapy [address] [phone] Cami Moore OT/Raisa [address] [place] [address] RE: Appointment Cancellation Request Social [...] 2:00 PM EST Office Visit Rheumatology [address] [place] [address] Daniela Rae MD [address] [place] [address] Joint Pain documented as of this encounter Visit Diagnoses Not on filedocumented in this encounter Care Teams French Instructor Relationship Specialty Start Date End Date Tereso Haider DO PCP - General Internal Medicine 04/12/15 06/07/22 Kristyn López APRN PCP - General 06/08/22 12/24/22 documented as of this encounter
--- OUTSIDE RECORDS SUMMARY | 2025-05-17 08:56 | XMS_ITS | Encounter Summary ---
Author Organization [facility] Address [address] [place] [address] Care Team Providers Care Gathering Worker Name Role Phone Unavailable Primary Care Provider Unavailabl e Source Comments In the event this information is protected by the Federal Confidentiality of Alcohol and Drug AbusePatient Records regulations: The Federal rules restrict any use of the information to criminally investigate or prosecute any alcohol or drug abuse patient.[facility] Encounter Details Date Type Department Care Team (Late st Contact Info) Description 05/11/2025 Patient [facility] [place] [address] Katie Madison RPh At your next appointment, choose [facility] Social History Tobacco Use Types Packs/Day Years [...] 2:00 PM EST Office Visit Rheumatology [address] [place] [address] Daniela Rae MD [address] [place] [address] Joint Pain documented as of this encounter Visit Diagnoses Not on filedocumented in this encounter
--- OUTSIDE RECORDS SUMMARY | 2025-05-17 08:56 | XMS_ITS | Encounter Summary ---
Author Organization [facility] Address [facility] [place] [address] Care Team Providers Care Marketing Planner Name Role Phone VitalyTereso Primary Care Provider [phone] Pcp, No ENGRAVER LETTER Primary Care Provider Unavailabl e Source Comments In the event this information is protected by the Federal Confidentiality of Alcohol and Drug AbusePatient Records regulations: The Federal rules restrict any use of the information to criminally investigate or prosecute any alcohol or drug abuse patient.[facility] Encounter Details Date Type Department Care Team (Late st Contact Info) Description 11/27/2016 Patient Msg Plastic Surgery [address] [phone] Aimee Bliss APRN.MARKETING FINANCIAL ANALYST [address] [place] [address] RE: Appointment Cancellation Request Social [...] 2:00 PM EST Office Visit Rheumatology [address] [place] [address] Daniela Rae MD [address] [place] [address] Joint Pain documented as of this encounter Visit Diagnoses Not on filedocumented in this encounter Care Teams Marketing Planner Relationship Specialty Start Date End Date Tereso Haider DO PCP - General Internal Medicine 04/12/15 06/07/22 Kristyn López APRN PCP - General 06/08/22 12/24/22 documented as of this encounter
--- OUTSIDE RECORDS SUMMARY | 2025-05-17 08:56 | XMS_ITS | Encounter Summary ---
Author Organization [facility] Address [address] [place] [address] Care Team Providers Care Vp Organizational Development Name Role Phone VitalyTereso Primary Care Provider [phone] Pcp, No SCORE CALLER Primary Care Provider Unavailabl e Source Comments In the event this information is protected by the Federal Confidentiality of Alcohol and Drug AbusePatient Records regulations: The Federal rules restrict any use of the information to criminally investigate or prosecute any alcohol or drug abuse patient.[facility] Encounter Details Date Type Department Care Team (Latest Contact Info) Description 10/21/2016 Patient Msg [facility] Occupational Therapy [address] [phone] Cami Moore OT/Raisa [address] [place] [address] RE: Appointment Cancellation Request Social [...] 2:00 PM EST Office Visit Rheumatology [address] [place] [address] Daniela Rae MD [address] [place] [address] Joint Pain documented as of this encounter Visit Diagnoses Not on filedocumented in this encounter Care Teams Vp Organizational Development Relationship Specialty Start Date End Date Tereso Haider DO PCP - General Internal Medicine 04/12/15 06/07/22 Kristyn López APRN PCP - General 06/08/22 12/24/22 documented as of this encounter
== END 2025-05-17 08:55 | disposition home or self-care (01) ==
LOC: MAMMO 08:54
PROVIDERS: PCP Internal Medicine; Visit Provider Internal Medicine
DX: Z12.31 Encounter for screening mammogram for malignant neoplasm of breast (principal); E04.9 Nontoxic goiter, unspecified; Z80.3 Family history of malignant neoplasm of breast; E04.2 Nontoxic multinodular goiter
CPT/HCPCS: 76536; 77063; 77067